=== PATIENT | male | born 1965 | race Two or more races ===

== ENCOUNTER 2016-05-22 16:22 | Emergency (ER) | payer MEDICAID ==
[~2016-05-22 16:22] MED LIST: ALDACTONE100 MG PO; ALDACTONE25 MG PO; AMBIEN10 MG PO; B COMPLEX WITH1 EACH PO; CARAFATE1 GM PO; CONSTULOSE10 GM/15 M PO; DELTASONE10 MG PO; FEOSOL325 MG PO; FERGON325 M1 PO; FLEXERIL10 MG PO; FOLIC ACID1 MG PO; HYDROCODON-ACE1 EAC4 PO; HYDRODIURIL12.5 MG; K-TAB 10MEQ10 MEQ PO; KLOR-CON M2020 MEQ PO; LASIX40 MG PO; LEVAQUIN 750 M750 MG PO; LEVOTHROID (S200 MCG PO; LEVOTHROID (SY25 MCG PO; LEVOTHROID(SYN75 MCG PO; LIDODERM1 EACH TOP; LOPRESSOR50 MG PO; MAG-OX PO; MAG-OX-400(241400 MG PO; MECLIZINE HCL25 MG PO; NITROSTAT0.4 MG SL; NORCO 5-325 MG1 TAB; PRILOSEC20 M1 PO; PROAIR HFA8.5 GM INH; PROTONIX40 MG PO; PROZAC10 MG PO; PROZAC20 MG PO; RISPERDAL0.5 MG PO; SYNTHROID200 MCG PO; THERA-VITE W/ B1 TAB PO; ULTRAM50 MG PO; VITAMIN B-1100 MG PO; WELLBUTRIN SR150 MG PO; XANAX0.5 MG PO; XIFAXAN200 MG PO; XIFAXAN550 MG PO; ZANTAC150 MG PO; ZAROXOLYN2.5 MG PO
[2016-09-21] MEDS ORDERED: CPAP INH (10:24)
[2016-09-21] MEDS ORDERED: DUONEB INH (10:58)
[2016-11-08] MEDS ORDERED: OSCAL500 MG PO (09:23)
[2016-11-08] MEDS ORDERED: MAG-OX-400(241400 MG PO (09:23)
[2016-11-08] MEDS ORDERED: PROZAC10 MG PO (09:24)
[2016-11-08] MEDS ORDERED: RISPERDAL0.5 MG PO (09:39)
[2016-11-11] MEDS ORDERED: CARAFATE1 GM PO (09:04)
== END 2016-05-22 16:58 | disposition left against medical advice (07) ==
LOC: GMED 16:22
DX: Z53.21 Procedure and treatment not carried out due to patient leaving prior to being seen by health care provider (principal)

== ENCOUNTER 2016-06-04 14:24 | Emergency (ER) | payer SELFPAY ==
[2016-09-21] MEDS ORDERED: CPAP INH (10:24)
[2016-09-21] MEDS ORDERED: DUONEB INH (10:58)
[2016-11-08] MEDS ORDERED: OSCAL500 MG PO (09:23)
[2016-11-08] MEDS ORDERED: MAG-OX-400(241400 MG PO (09:23)
[2016-11-08] MEDS ORDERED: PROZAC10 MG PO (09:24)
[2016-11-08] MEDS ORDERED: RISPERDAL0.5 MG PO (09:39)
[2016-11-11] MEDS ORDERED: CARAFATE1 GM PO (09:04)
== END 2016-06-04 15:18 | disposition disaster alternative care site (69) ==
LOC: GMED 14:24
DX: Z53.21 Procedure and treatment not carried out due to patient leaving prior to being seen by health care provider (principal)

== ENCOUNTER 2016-06-05 07:45 | Emergency (ER) | payer MEDICAID ==
--- NOTE | ~2016-06-05 | ER ---
PATIENT'S NAME: JM GAXIOLA [facility] AGE: 50 Y [address] ROOM: [place] [address] LOCATION: [facility] ADMIT DATE: 06/05/2016 ER/Outpatient Report DISCHARGE DATE: 06/05/2016 FAMILY PHYSICIAN: Tessie Ashby MD ATTENDING PHYSICIAN: Merissa Villaseñor CHIEF COMPLAINT: Abdominal discomfort and leg discomfort. HISTORY OF PRESENT ILLNESS: The patient states that for the past 2-3 weeks he has had progressive discomfort in his lower extremities. This has progressed to his abdomen as well. He has a known history of cirrhosis secondary to alcoholism. He has no significant changes, but states he could not sleep last night and that prompted him to come in. He was in the emergency department waiting room yesterday at 2 different hospitals, but felt the wait was too long and did not be seen yesterday. His primary care is Dr. Ashby of [facility]. He denies any confusion and is otherwise able to take care of himself at home per his baseline. He does have pain medication and states that he has been taking everything as normally. His tramadol once a day does not appear to be adequately controlling his symptoms. He does report significant weight gain over the last several weeks. PAST MEDICAL HISTORY: Documented on the record and reviewed by me. SOCIAL HISTORY: Documented on the record and reviewed by me. MEDICATIONS: Documented on the record and reviewed by me. ALLERGIES: DOCUMENTED ON THE RECORD AND REVIEWED BY ME. REVIEW OF SYSTEMS: All systems are reviewed and negative except as noted in the HPI. PHYSICAL EXAMINATION: VITAL SIGNS: Weight is 192.8 kilos, up from 172.2 kilos at the beginning of May. Blood pressure is 172/92, pulse is 61, respiratory rate is 24, temperature 96.6, SpO2 is 96% on room air. Pain is rated at 10/10. GENERAL: Age-appropriate male, in no obvious pain or distress. Resting comfortably on exam table. NEUROLOGIC: Awake and alert. GCS is 15. Moves all extremities PATIENT'S NAME: JM GAXIOLA [facility] AGE: 50 Y [address] ROOM: [place] [address] LOCATION: [facility] ADMIT DATE: 06/05/2016 ER/Outpatient Report DISCHARGE DATE: 06/05/2016 FAMILY PHYSICIAN: Tessie Ashby MD ATTENDING PHYSICIAN: Merissa Villaseñor. Ambulates with some difficulty. No gait abnormality. HEENT: Normocephalic, atraumatic. Eyes are PERRL. Oropharynx is clear. NECK: Supple. Trachea is midline. CHEST/HEART: Regular rate and rhythm with no obvious murmurs. LUNGS: Grossly clear to auscultation bilateral, however, limited by body habitus. BACK: Nontender to palpation throughout. No CVA tenderness. ABDOMEN: Soft, nontender with no masses, rebound, or guarding though limited by body habitus. EXTREMITIES: Notable for woody edema of the bilateral lower extremities to the mid thigh. There is no significant skin breakdown, weeping, or cellulitis appreciated. No deformities appreciated. SKIN: Warm, dry, and intact. There are several focal telangiectasia across the chest, but no other abnormalities appreciated. LABS AND X-RAYS: No imaging was obtained. Labs are notable for the following: WBC is 4.4, hemoglobin 8.8, and platelets of 84. INR is 1.3. Ammonia is 137. Lactate is 1.6. Urinalysis with 10-20 rbc's but no wbc's, leukocytes, nitrites, or bacteria. Procalcitonin is below threshold. Sodium 142, potassium 4.0, chloride 110, CO2 is 25, BUN is 15, and creatinine 0.8. GFR is greater than 60. LFTs are within range, prior total bilirubin of 2.0, alkaline phosphatase 162, AST is 99, ALT is 56. Amylase and lipase of 71 and 391 respectively. CPK is 163, CK-MB is 3.0, and troponin I is below threshold. Free T4 0.7. TSH 37.5. ProBNP is 285. CRP is 0.58. IMPRESSION: 1. Marked weight gain with volume retention, approximately 26 kilos in 1 month. 2. Abdominal pain and leg pain related to fluid retention and edema. 3. Hypothyroidism with normal TSH. EMERGENCY DEPARTMENT COURSE: The patient was evaluated as above. There are no significant new abnormalities on his laboratory studies today. He does appear to be markedly elevated in his weight. There is no evidence of heart failure at this time. No significant metabolic derangement. We will have him follow up with Dr. Ashby tomorrow. I spoke with Dr. Day to ensure that. I have recommended he double his diuretic dose today and take his tramadol more frequently to help control his symptoms. I encouraged him to continue using a low-salt diet and to watch his fluid intake. He expresses understanding. He stated he would be more comfortable with that at home than in the hospital. All questions were answered, and the patient was discharged in stable condition. PATIENT'S NAME: JM GAXIOLA [facility] AGE: 50 Y [address] ROOM: [place] [address] LOCATION: [facility] ADMIT DATE: 06/05/2016 ER/Outpatient Report DISCHARGE DATE: 06/05/2016 FAMILY PHYSICIAN: Tessie Ashby MD ATTENDING PHYSICIAN: Merissa Villaseñor MERISSA VILLASEÑOR MD JH/modl /[id number] d: 06/05/16 1835 t: 06/06/16 1054, OUTPATIENT REPORT
[2016-06-05 08:25] LABS: BASOPHIL % 0.7 %; EOSINOPHIL # 0.3 K/uL (0.0-0.5); EOSINOPHIL % 7.7 %; HEMATOCRIT 27.4 % (37.0-53.0); HEMOGLOBIN 8.8 g/dL (12.0-17.0); IMMATURE GRANULOCYTE % 0.2 %; LYMPHOCYTE % 22.6 %; MCH 32.1 pg (27.0-34.0); MCHC 32.1 gm/dL (32.0-36.5); MONOCYTE # 0.4 K/uL (0.0-1.0); MONOCYTE % 9.3 %; MPV 9.8 fl (9.4-12.4); NEUTROPHIL # (ANC) 2.6 K/uL (1.4-9.0); NEUTROPHIL % 59.5 %; NRBC % 0 /100WBC (0-0.00); PLATELET COUNT 84 K/uL (150-450); RBC 2.74 M/uL (4.00-6.00); RDW-CV 16.5 % (11.9-14.6); WBC 4.4 K/uL (4.0-11.0)
[2016-06-05 08:33] LABS: INR - (THERAPEUTIC) 1.3 (0.9-1.1); PROTIME 13.7 SECONDS (9.6-11.1); PTT 37 SECONDS (25-32)
[2016-06-05 08:49] LABS: ALBUMIN 2.4 gm/dL (3.5-5.0); ALK PHOS 162 IU/L (33-138); ALT 56 IU/L (12-78); AST 99 IU/L (10-40); BLOOD UREA NITROGEN 15 mg/dL (6-24); CALCIUM 7.6 mg/dL (8.5-10.5); CHLORIDE 110 mMol/L (96-110); CO2 25 mMol/L (22-32); CPK 163 IU/L (35-332); CREATININE 0.8 mg/dL (0.6-1.3); ESTIMATED GFR (MDRD EQUATION) > 60; SODIUM 142 mMol/L (135-145)
[2016-06-05 08:54] LABS: BILIRUBIN URINE NEGATIVE (NEGATIVE); BLOOD URINE 25 /UL (NEGATIVE); COLOR URINE YELLOW (YELLOW); GLUCOSE URINE NEGATIVE (NEGATIVE); KETONE URINE NEGATIVE (NEGATIVE); LEUKOCYTES URINE NEGATIVE /UL (NEGATIVE); NITRITE URINE NEGATIVE (NEGATIVE); PROTEIN URINE NEGATIVE (NEGATIVE); TURBIDITY URINE CLEAR (CLEAR); UROBILINOGEN URINE 4 mg/dL (NORMAL)
[2016-06-05 09:02] LABS: BACTERIA URINE NEGATIVE (NEGATIVE); EPITHELIAL URINE NEGATIVE #/HPF (NEGATIVE); WBC URINE NEGATIVE #/HPF (NEGATIVE)
[2016-06-06] MEDS ORDERED: ULTRAM50 MG PO (11:03)
[2016-06-06] MEDS ORDERED: LIDOCAINE1 EACH TRANS (11:04)
[2016-06-06] MEDS ORDERED: NITROSTAT0.4 MG SL (11:04)
[2016-06-06] MEDS ORDERED: PROAIR HFA8.5 GM INH (11:05)
[2016-06-06] MEDS ORDERED: MECLIZINE HCL25 MG PO (11:05)
[2016-06-06] MEDS ORDERED: K-TAB 10MEQ10 MEQ PO (11:07)
[2016-06-06] MEDS ORDERED: THIAMINE HCL100 MG PO (11:09)
[2016-09-21] MEDS ORDERED: CPAP INH (10:24)
[2016-09-21] MEDS ORDERED: DUONEB INH (10:58)
[2016-11-08] MEDS ORDERED: MAG-OX-400(241400 MG PO (09:23)
[2016-11-08] MEDS ORDERED: OSCAL500 MG PO (09:23)
[2016-11-08] MEDS ORDERED: PROZAC10 MG PO (09:24)
[2016-11-08] MEDS ORDERED: RISPERDAL0.5 MG PO (09:39)
[2016-11-11] MEDS ORDERED: CARAFATE1 GM PO (09:04)
== END 2016-06-05 10:25 | disposition disaster alternative care site (69) ==
LOC: GMED 07:45
PROVIDERS: Emergency Medicine
DX: R10.9 Unspecified abdominal pain (principal); E03.9 Hypothyroidism, unspecified

== ENCOUNTER 2016-06-06 09:30 | Observation (INO) | payer MEDICAID ==
[~2016-06-06] VITALS: Ht 172.7 cm; Wt 196.4 kg
--- NOTE | ~2016-06-06 | HP ---
PATIENT'S NAME: JM GAXIOLA [facility] AGE: 50 Y [address] ROOM: [place] [address] [place] [facility] ADMIT DATE: 06/06/2016 History & Physical DISCHARGE DATE: FAMILY PHYSICIAN: Tessie Ashby MD ATTENDING PHYSICIAN: TATIANA RODRIGUEZ DATE OF SERVICE: CHIEF COMPLAINT: Bilateral lower extremity swelling and shortness of breath. HISTORY OF PRESENT ILLNESS: This is a 50-year-old male with repeated admissions to [facility] in the past few months. The patient has a history of hepatitis C and alcoholic liver cirrhosis. He also has extensive gastric polyposis. The patient states that he started having increasing bilateral lower extremity swelling for the past few days. He also started experiencing increasing shortness of breath. Currently, he is on room air, but complains of subjective shortness of breath with exertion. He is not short of breath at rest. He also complains of epigastric pain. The pain is not too much. Denies any chest pain. Denies any lightheadedness. Denies any head trauma or loss of consciousness. Denies any abdominal pain, diarrhea, or constipation. Denies any other complaints at this point in time. The patient presented to the ER yesterday and was given some Lasix. He is noncompliant with his medications and has not filled his medications since March. He was asked to follow up with his primary care physician, Dr. Ashby, and the patient presented to Dr. Ashby's clinic today. He states that he was in the clinic for about 2 hours, and there were patients that were seen before him, but he was not seen. Dr. Ashby called for transfer to [facility]. It was stated to the patient that [facility] did not have the capacity to deal with the patient at that point of time. REVIEW OF SYSTEMS: A 10-point review of systems done and was otherwise negative except as mentioned above. HOME MEDICATIONS: Per JUN. FAMILY HISTORY: Reviewed. Positive for leukemia in mother and CVA in father. Brother with oropharyngeal carcinoma. PAST SURGICAL HISTORY: Reviewed. PATIENT'S NAME: JM GAXIOLA [facility] AGE: 50 Y [address] ROOM: [place] [address] [place]: [facility] [place] ADMIT DATE: 06/06/2016 History & Physical DISCHARGE DATE: FAMILY PHYSICIAN: Tessie Ashby MD ATTENDING PHYSICIAN: TATIANA RODRIGUEZ 1. Right shoulder surgery. 2. Back surgery. 3. Rotator cuff surgery. PAST MEDICAL HISTORY: 1. Coronary artery disease. 2. History of hepatitis C. 3. Liver cirrhosis. 4. Alcoholic liver disease. 5. Obstructive sleep apnea, on CPAP. 6. Depression. 7. Anxiety. 8. Hypertension. 9. History of alcohol and drug abuse in the past. 10. Thyroid disease. SOCIAL HISTORY: The patient denies any smoking or alcohol on recent history. ALLERGIES: NONE REPORTED. PHYSICAL EXAMINATION: VITAL SIGNS: Temperature 98.4, pulse 63 and regular, respirations 25, blood pressure 137/77, saturation 100% on room air. GENERAL: The patient is alert and oriented x3. Answers all questions appropriately, in no acute distress. HEENT: Head: Normocephalic and atraumatic. Pupils are equal, round, reactive to light. Extraocular muscles are intact. No scleral icterus noted. No conjunctival injection noted. Mucous membranes are moist. NECK: Supple. No nuchal rigidity. HEART: Regular rate and rhythm. LUNGS: Clear to auscultation bilaterally. ABDOMEN: Soft, nontender, nondistended. Bowel sounds are present. EXTREMITIES: Bilateral lower extremity 2+ to 3+ pitting pedal edema noted. NEUROLOGIC: The patient is alert and oriented x3. Follows all commands. Moves all extremities. Cranial nerves 2 through 12 are grossly intact. DIAGNOSTIC STUDIES: Ammonia 44. ProBNP 202. CBC showed a white count of 5.3, hemoglobin 9.6, hematocrit 30.4, platelets are 94. CMP showed sodium 142, potassium 3.8, chloride 108, bicarb 25, BUN 11, creatinine 0.8, glucose 108, calcium 8.0, total protein 6.7, albumin 2.7. AST 110, ALT 63, alkaline phosphatase 166. Total bilirubin 2.4, anion gap 12.8, globulin 4.0. GFR more than 60. PT 13.4, INR 1.3, PTT 36. Blood alcohol level was less than 0.01 and normal. PATIENT'S NAME: DEON GAXIOLAEL Danii [facility] AGE: 50 Y [address] ROOM: [id number] [place], [place] [address] LOCATION: [facility] [place] ADMIT DATE: 06/06/2016 History & Physical DISCHARGE DATE: FAMILY PHYSICIAN: Tessie Ashby MD ATTENDING PHYSICIAN: TATIANA RODRIGUEZ Chest x-ray was done for shortness of breath and showed no vascular congestion or acute parenchymal infiltrate. The EKG showed sinus rhythm and no acute ST changes. Prolonged QT interval noted with QTc of 518 msec. ASSESSMENT AND PLAN: A 50-year-old male presenting with bilateral lower extremity edema and shortness of breath. 1. History of hepatitis C. 2. Liver cirrhosis. The patient's symptoms might be likely secondary to liver cirrhosis. He is noncompliant with his medications. He has not taken or refilled his diuretics. I will place him on Lasix for now. We will monitor his fluid volume status very closely. Start the patient on Aldactone. 3. Dyspnea. This is likely secondary to fluid overload, diuresed with Lasix and Aldactone. 4. Obstructive sleep apnea. On CPAP at h.s. 5. Thrombocytopenia. Chronic and stable, likely secondary to liver disease. 6. History of alcohol abuse in the past. 7. History of hepatic encephalopathy. Ammonia level is normal. 8. History of gastric polyposis. I will obtain Hematest of his stools. Monitor hemoglobin closely. 9. Hypothyroidism. Continue levothyroxine per home regimen. 10. History of coronary artery disease. 11. Code status. Full code. Discussed with the patient at the time of admission. 12. Deep vein thrombosis prophylaxis. SCDs to legs. TATIANA RODRIGUEZ MD MT/kaila /[id number] D: T: HISTORY & PHYSICAL
--- NOTE | ~2016-06-06 | DS ---
PATIENT'S NAME: JM GAXIOLA [facility] AGE: 50 Y [address] ROOM: [id number] [place], [place] [address] LOCATION: [facility] [place] ADMIT DATE: 06/06/2016 Discharge Summary DISCHARGE DATE: 06/07/2016 FAMILY PHYSICIAN: Tessie Ashby MD ATTENDING PHYSICIAN: Yoel Ferrera ATTENDING PHYSICIAN ON THE DAY OF DISCHARGE: Dr. Dora Barraza. DISCHARGE DIAGNOSES: 1. Bilateral lower extremity edema. 2. Dyspnea. 3. Cirrhosis of the liver. 4. History of gastric polyposis. 5. Obstructive sleep apnea. 6. Depression. 7. Anxiety. 8. Hypothyroidism. 9. History of hepatitis C. 10. Coronary artery disease. DISCHARGE MEDICATIONS: We are sending the patient out on minimal medications at this time: 1. Lasix 20 mg p.o. daily. 2. Lactulose 45 mL p.o. t.i.d. 3. Levothyroxine 200 mcg p.o. daily. 4. Metolazone 2.5 mg p.o. daily. 5. Protonix 40 mg p.o. daily. 6. Rifaximin 550 mg p.o. twice daily. 7. Spironolactone 25 mg p.o. daily. HOSPITAL COURSE: The patient was admitted on 06/06/2016. He was placed on IV Lasix 40 mg twice daily. A BNP was obtained and was found to be 202. The patient responded well to the Lasix. He Is feeling much improved in the afternoon of 06/07/2016. The patient was requesting to discharge home. Family was at the bedside and agreed with this plan. The patient did have an ammonia level also drawn on 06/06/2016, which was 44. The patient is in the midst of meeting with employment case manager to reinstate his Medicaid and also needs to have a PCP in place to help manage his chronic conditions and to [facility] for his medications. Dr. Cai has graciously agreed to see this patient for continuing management. The patient voiced understanding of this. We will work with our pharmacy to get the patient supplies of the minimal amount of medications necessary. Please see list as stated above. The patient will discharge to his home on 06/07/2016. He is to follow up with PATIENT'S NAME: JM GAXIOLA [facility] AGE: 50 Y [address] [place] [facility] [place] [address] LOCATION: [facility] [place] ADMIT DATE: 06/06/2016 Discharge Summary DISCHARGE DATE: 06/07/2016 FAMILY PHYSICIAN: Tessie Ashby MD ATTENDING PHYSICIAN: Yoel Ferrera showcase maker on 06/08/2016. The purpose of this is to reinstate Medicaid. The patient understands need to work with [employer]. Dr. Cai has agreed to see this patient in followup in 3-5 days for continuing management of his chronic conditions. The patient voiced understanding. Discharge of this patient took less than 35 minutes. MARIELA BARNETT PA-C FOR MD SANJEEV BRYANT/kaila /[id number] CC: Lauri Cai MD d: 06/08/16 0321 t: 06/22/16 1642, DISCHARGE SUMMARY
[2016-06-06] MEDS ORDERED: ULTRAM50 MG PO (11:03)
[2016-06-06] MEDS ORDERED: NITROSTAT0.4 MG SL (11:04)
[2016-06-06] MEDS ORDERED: LIDOCAINE1 EACH TRANS (11:04)
[2016-06-06] MEDS ORDERED: PROAIR HFA8.5 GM INH (11:05)
[2016-06-06] MEDS ORDERED: MECLIZINE HCL25 MG PO (11:05)
[2016-06-06] MEDS ORDERED: K-TAB 10MEQ10 MEQ PO (11:07)
[2016-06-06] MEDS ORDERED: THIAMINE HCL100 MG PO (11:09)
--- NOTE | 2016-06-06 11:11 | NUR ---
Pt is 50 y/o male admit for shortness breath for hospitalist. Pt alert and oriented x3. Hx non-compliance with taking meds,following medical advice. Pt lower legs and feet are edematous. Hx ETOH abuse,acute hepatic encephalop, end stage liver disease,htn,NH,asthma,pneumonia,SOB,ulcers,bloody stools,Hep C-not tx'd,chronic back problems,neb tx,COPD,anemia,incontinent. No allergies. PT states he resides at home with his daughter and her boyfriend-who is also disabled from an MVA. He states they help take care of her. Came from [facility] to our ED for evaluation.
[2016-06-06 14:11] LABS: INR - (THERAPEUTIC) 1.3 (0.9-1.1); PROTIME 13.4 SECONDS (9.6-11.1); PTT 36 SECONDS (25-32)
[2016-06-06 14:18] LABS: ALBUMIN 2.7 gm/dL (3.5-5.0); ALK PHOS 166 IU/L (33-138); ALT 63 IU/L (12-78); ANION GAP 12.8 (10.0-19.0); AST 110 IU/L (10-40); BLOOD UREA NITROGEN 11 mg/dL (6-24); CHLORIDE 108 mMol/L (96-110); CO2 25 mMol/L (22-32); CREATININE 0.8 mg/dL (0.6-1.3); ESTIMATED GFR (MDRD EQUATION) > 60; POTASSIUM 3.8 mMol/L (3.7-5.1); SODIUM 142 mMol/L (135-145); TOTAL BILIRUBIN 2.4 mg/dL (0.0-1.5); TOTAL PROTEIN 6.7 g/dL (6.0-8.4)
[2016-06-06 14:53] LABS: BASOPHIL # 0.1 K/uL (0.0-0.2); BASOPHIL % 0.9 %; EOSINOPHIL # 0.4 K/uL (0.0-0.5); EOSINOPHIL % 6.7 %; HEMATOCRIT 30.4 % (37.0-53.0); HEMOGLOBIN 9.6 g/dL (12.0-17.0); IMMATURE GRANULOCYTE % 0.4 %; LYMPHOCYTE # 1.3 K/uL (0.8-4.0); LYMPHOCYTE % 24.2 %; MCH 31.6 pg (27.0-34.0); MCHC 31.6 gm/dL (32.0-36.5); MONOCYTE # 0.4 K/uL (0.0-1.0); MONOCYTE % 6.9 %; NEUTROPHIL # (ANC) 3.3 K/uL (1.4-9.0); NEUTROPHIL % 60.9 %; NRBC % 0 /100WBC (0-0.00); PLATELET COUNT 94 K/uL (150-450); RBC 3.04 M/uL (4.00-6.00); RDW-CV 16.4 % (11.9-14.6); WBC 5.3 K/uL (4.0-11.0)
--- NOTE | 2016-06-06 15:22 | NUR ---
Significant Event: Pt admitted from clinic at 1130. Pt states he stopped taking his meds since march because he can't afford them and now has gained alot of water weight since. Hx of Hep C and cirroisis of the liver. Up with 1 assist. Cardiac diet. IV lasix BID. EKG, chest xray, blood ETOH level but other labs to be drawn. CPAP at night. Q4hr VS. Hematest stool. a/o x3. Follow up:
--- NOTE | 2016-06-07 04:02 | NUR ---
SIGNIFICANT EVENT: Patient alert & oriented. Slight hypotensive on 0300 assessment (97/52), other VSS on RA. Q4 vital signs - last taken at 0300. CPAP at HS. Hx Hep C - standard precautions with cares. PIV to L) Anterior FA is SL - flushes well, good blood return. 1 PA to BR. Pleasant and cooperative with cares.
[2016-06-07 08:59] LABS: ANION GAP 9.4 (10.0-19.0); BLOOD UREA NITROGEN 16 mg/dL (6-24); CALCIUM 8.2 mg/dL (8.5-10.5); CHLORIDE 106 mMol/L (96-110); CO2 28 mMol/L (22-32); CREATININE 0.9 mg/dL (0.6-1.3); ESTIMATED GFR (MDRD EQUATION) > 60; POTASSIUM 3.4 mMol/L (3.7-5.1)
[2016-06-07 09:01] LABS: SODIUM 140 mMol/L (135-145)
--- NOTE | 2016-06-07 12:33 | NUR ---
Reviewed patient's chart and past notes from when he was here last. At his last visit I made a referral to [facility] Medication Assistance Program. I contacted Soha at [facility] today [phone] and asked her if patient followed through with the referral that I made in May. Per Soha, Kehinde did go in to [facility] and meet with her, but in order for [facility] to be able to get him signed up on a medication assistance program patient needed to be seen by Dr. Ashby for a follow up appointment. Patient stated he was not going to go in to see Dr. Ashby because he did not have the money for the appointment. Dr. Ashby refused to sign the Medication Assistance Application since patient would not come in for appointment. [facility] is only able to help with two of his meds. Soha with [facility] said that she is happy to help patient but he has to follow through with the recommendations and necessary steps to get enrolled on a plan. Will discuss with patient.
--- NOTE | 2016-06-07 16:40 | NUR ---
D: Orders received for the patient to be discharged to home. I: Dismissal instructions were prepared by the virtual nurse but reviewed in the room by the primary nurse Lizzy AVINA. The following information was prepared including [facility] teaching sheets: Tips for Taking Medications, Taking your medications, and preventing DVT. R: When asked the patient verbalized understanding of the discharge instructions as to what Lizzy AVINA reviewed with him at the bedside. P: The above information was provided by the virtual nurse for discharge. The primary nurse will review any further education and discharge the patient.
--- NOTE | 2016-06-07 17:45 | NUR ---
Discharge Summary: Patient IV dc'd without complications. Hospital dismissal instructions given to patient. Went over the appt with Dr Cai and stressed the importance of making it to this appointment. Also went over the medications that were stopped and the ones the he will definitely need to take. Pt voiced understanding of all this. Pt was in a hurry to leave to go pay a bill by 5 pm with daughter. Instructed pt to come back to floor LATHA to get medications from pharmacy and finish going over the education needed. Pt will return to floor. Pharmacy to be called and bring up medications for pt to take home.
[2016-09-21] MEDS ORDERED: CPAP INH (10:24)
[2016-09-21] MEDS ORDERED: DUONEB INH (10:58)
[2016-11-08] MEDS ORDERED: MAG-OX-400(241400 MG PO (09:23)
[2016-11-08] MEDS ORDERED: OSCAL500 MG PO (09:23)
[2016-11-08] MEDS ORDERED: PROZAC10 MG PO (09:24)
[2016-11-08] MEDS ORDERED: RISPERDAL0.5 MG PO (09:39)
[2016-11-11] MEDS ORDERED: CARAFATE1 GM PO (09:04)
== END 2016-06-07 18:30 | disposition disaster alternative care site (69) ==
LOC: GMSU 10:04
PROVIDERS: ADMIT Family Medicine
DX: R60.0 Localized edema (principal); I25.10 Atherosclerotic heart disease of native coronary artery without angina pectoris; F41.9 Anxiety disorder, unspecified; F32.9 Major depressive disorder, single episode, unspecified; I10 Essential (primary) hypertension; E03.9 Hypothyroidism, unspecified; K70.30 Alcoholic cirrhosis of liver without ascites; G47.33 Obstructive sleep apnea (adult) (pediatric); E87.6 Hypokalemia; D69.6 Thrombocytopenia, unspecified; Z86.19 Personal history of other infectious and parasitic diseases; Z98.890 Other specified postprocedural states
CPT/HCPCS: A9270; G0480; J1650; J1940

== ENCOUNTER 2016-06-17 11:02 | Emergency (ER) | payer MEDICAID ==
--- NOTE | ~2016-06-17 | ER ---
PATIENT'S NAME: DEON GAXIOLAEL Danii [facility] AGE: 50 Y [address] ROOM: [place] [address] LOCATION: ED ADMIT DATE: 06/17/2016 ER/Outpatient Report DISCHARGE DATE: 06/17/2016 FAMILY PHYSICIAN: , Unknown ATTENDING PHYSICIAN: Priscilla Pruitt Time of Arrival: 1102 hours. Time Seen: 1110 hours. IDENTIFICATION: 50-year-old male. CHIEF COMPLAINT: Right shoulder pain, abdominal pain, nausea, vomiting, and headache. HISTORY OF PRESENT ILLNESS: The patient states he fell 3 days ago. He has had headache, nausea, vomiting, and right shoulder pain since that time. He has pain that radiates into his right anterior chest. No other problems or concerns. PAST MEDICAL HISTORY: ALLERGIES: THE PATIENT DENIES ANY ALLERGIES. CURRENT MEDICATIONS: He states Dr. Cai just trimmed his medication. He takes, 1. Lactulose 45 mL 3 times a day. 2. Lasix 20 mg daily. 3. Albuterol p.r.n. 4. Tramadol 50 mg q.8 hours. MEDICAL PROBLEMS: Bilateral lower extremity edema, dyspnea, cirrhosis of the liver, gastric polyposis, obstructive sleep apnea, history of hepatitis C, history of coronary artery disease, depression, anxiety, history of alcohol and drug abuse in the past, and hypothyroidism. PRIOR SURGERIES: Right shoulder surgery, back surgery, and right rotator cuff surgery. SOCIAL HISTORY: The patient is currently getting , but he is still . Lives here in [place]. He is disabled. Does not work outside the home. Tobacco use, denies. Alcohol use, denies. Drug use, denies. PATIENT'S NAME: KEHINDE GAXIOLA [facility] AGE: 50 Y [address] ROOM: [place] [address] LOCATION: ED ADMIT DATE: 06/17/2016 ER/Outpatient Report DISCHARGE DATE: 06/17/2016 FAMILY PHYSICIAN: , Fatou ATTENDING PHYSICIAN: Priscilla Pruitt REVIEW OF SYSTEMS: All systems reviewed and negative other than what is noted in the HPI. FAMILY HISTORY: Positive for leukemia in mother, father with CVA, brother with oropharyngeal carcinoma. PHYSICAL EXAMINATION: VITAL SIGNS: Weight 185 kg, blood pressure 142/102, pulse 69, respirations 20, temperature 97, and saturations 97%. GENERAL: A 50-year-old male in no acute distress. HEENT: Normocephalic, atraumatic. Ears: TMs translucent to both ears. Eyes: Pupils equal and reactive to light and accommodation. Extraocular movements intact. Nose: Mucosa pink. No lesions or drainage. Mouth: No lesions. Pharynx benign. NECK: Supple. No lymphadenopathy. LUNGS: Clear to auscultation. HEART: Regular rate and rhythm. ABDOMEN: Soft, protuberant, tender epigastric region. No rebound or guarding. SKIN: [place], warm, and dry. No lesions or rashes noted. NEURO: No focal deficit. The patient has tenderness in his right anterior shoulder, no bruising or ecchymosis. X-ray shows chronic degenerative changes of his right shoulder, no acute findings, pending Radiology over-read. Head CT without contrast, negative per Radiology for any acute findings. He has had a prior right shoulder arthroplasty. EKG: Sinus rhythm with first-degree AV block, no acute ST elevation or depression. Nonspecific ST-T wave changes. Hemoglobin is 8.5, which is down from what it has been, it has been running in more than 9-10 range, most recently was 9.6 on June 06; hematocrit 26; platelets 106, which were stable; and white count 4.3 with a normal differential. INR 1.3. Ammonia level is 175, which is elevated compared to previous ammonia levels, ammonia level was 44 on June 06. Amylase 54 and lipase 475, also higher than it has been, lipase on June 05 with 391; December 01. Amylase is normal at 54. Troponin I less than 0.040. ProBNP elevated at 455, proBNP was 202 on June 06. The patient's lower extremity edema, he does have significant lower extremity edema and no calf tenderness. Sodium 144; potassium 3.0, which is lower than it has been; chloride 110; CO2 23; BUN 14; creatinine 0.7; and blood sugar 122. Albumin 2.5. Liver enzymes are improved. Total bilirubin 1.8, which is down. CPK 611, CK-MB 3.9, both of which are elevated when compared to prior enzymes. The patient was given Zofran 4 mg ODT for dry heaving. An IV was initiated, he was given 4 mg of Zofran IV. PATIENT'S NAME: KEHINDE GAXIOLA [facility] AGE: 50 Y [address] ROOM: [place], [place] [address] LOCATION: [facility] ADMIT DATE: 06/17/2016 ER/Outpatient Report DISCHARGE DATE: 06/17/2016 FAMILY PHYSICIAN: Physician, Unknown ATTENDING PHYSICIAN: Priscilla Pruitt IMPRESSION: 1. Pancreatitis. 2. Hepatic encephalopathy. 3. Right shoulder pain secondary to fall. 4. Hypokalemia. 5. Liver cirrhosis secondary to hepatitis C and substance abuse. 6. Anemia, which seems to be worse than baseline, but he does have a history of chronic anemia. 7. Congestive heart failure with elevated proBNP and increasing lower extremity edema. 8. Elevated CPK and CK-MB. PLAN: For admission, but we do not have any beds available. He will be transferred [facility] for the services of Dr. Frannie Quinn, she is the accepting physician, and Kehinde agrees with this transfer of care. He was transferred by ambulance with normal saline at 75 mL/hour. PRISCILLA PRUITT MD CAR/modl /[id number] d: 06/17/162128 t: 06/19/16 0721, OUTPATIENT REPORT
[~2016-06-17 11:02] MED LIST changes: +LIDOCAINE1 EACH TRANS; +THIAMINE HCL100 MG PO
[2016-06-17 11:37] LABS: BASOPHIL % 0.7 %; EOSINOPHIL # 0.3 K/uL (0.0-0.5); EOSINOPHIL % 6.1 %; HEMOGLOBIN 8.5 g/dL (12.0-17.0); IMMATURE GRANULOCYTE % 0.2 %; LYMPHOCYTE # 0.8 K/uL (0.8-4.0); LYMPHOCYTE % 18.5 %; MCH 31.5 pg (27.0-34.0); MCHC 32.7 gm/dL (32.0-36.5); MCV 96.3 fl (83.0-98.0); MONOCYTE # 0.5 K/uL (0.0-1.0); MONOCYTE % 10.8 %; MPV 9.3 fl (9.4-12.4); NEUTROPHIL # (ANC) 2.7 K/uL (1.4-9.0); NEUTROPHIL % 63.7 %; NRBC % 0 /100WBC (0-0.00); PLATELET COUNT 106 K/uL (150-450); RDW-CV 16.2 % (11.9-14.6); WBC 4.3 K/uL (4.0-11.0)
[2016-06-17 11:48] LABS: INR - (THERAPEUTIC) 1.3 (0.9-1.1); PROTIME 13.4 SECONDS (9.6-11.1); PTT 36 SECONDS (25-32)
[2016-06-17 11:59] LABS: ALBUMIN 2.5 gm/dL (3.5-5.0); ALK PHOS 159 IU/L (33-138); ALT 70 IU/L (12-78); AST 147 IU/L (10-40); BLOOD UREA NITROGEN 14 mg/dL (6-24); CALCIUM 7.7 mg/dL (8.5-10.5); CHLORIDE 110 mMol/L (96-110); CO2 23 mMol/L (22-32); CPK 611 IU/L (35-332); CREATININE 0.7 mg/dL (0.6-1.3); ESTIMATED GFR (MDRD EQUATION) > 60; MAGNESIUM 2.4 mg/dL (1.3-2.6); SODIUM 144 mMol/L (135-145); TOTAL PROTEIN 6.2 g/dL (6.0-8.4)
[2016-06-17 12:03] LABS: TOTAL BILIRUBIN 1.8 mg/dL (0.0-1.5)
[2016-09-21] MEDS ORDERED: CPAP INH (10:24)
[2016-09-21] MEDS ORDERED: DUONEB INH (10:58)
[2016-11-08] MEDS ORDERED: OSCAL500 MG PO (09:23)
[2016-11-08] MEDS ORDERED: MAG-OX-400(241400 MG PO (09:23)
[2016-11-08] MEDS ORDERED: PROZAC10 MG PO (09:24)
[2016-11-08] MEDS ORDERED: RISPERDAL0.5 MG PO (09:39)
[2016-11-11] MEDS ORDERED: CARAFATE1 GM PO (09:04)
== END 2016-06-17 13:24 | disposition disaster alternative care site (69) ==
LOC: GMED 11:02
PROVIDERS: Family Medicine
DX: M25.511 Pain in right shoulder (principal); K85.90 Acute pancreatitis without necrosis or infection, unspecified; K72.90 Hepatic failure, unspecified without coma; E87.6 Hypokalemia; K74.69 Other cirrhosis of liver; B19.20 Unspecified viral hepatitis C without hepatic coma; D64.9 Anemia, unspecified; I50.9 Heart failure, unspecified; R74.8 Abnormal levels of other serum enzymes; F32.9 Major depressive disorder, single episode, unspecified; E03.9 Hypothyroidism, unspecified; I25.10 Atherosclerotic heart disease of native coronary artery without angina pectoris

== ENCOUNTER → 2016-07-11 | Outpatient (CLI) | payer MEDICAID ==
[~2016-07-11] MED LIST changes: +CALCIUM 600 +1 EAC3 PO; +CLEOCIN150 MG PO; +CPAP INH; +DUONEB INH; +FLORASTOR250 MG PO; +HUMIBID LA (MU600 MG PO; +LIDOCAINE1 EACH TOP; +MYCOSTATIN CR15 GM TOP; +OSCAL500 MG PO; +POTASSIUM CHLO20 ME2 PO; +SALINE NASAL SP88 ML NOSE; +TYLENOL325 MG PO; +VITAMIN D250000 UNIT PO; +[UNRECOGNIZED DRUG - OTHER] PO
--- NOTE | ~2016-07-11 | ECHO ---
Transthoracic Echocardiography Report (TTE) Demographics Patient Name JM GAXIOLA Date of Study 07/11/2016 R Patient Number [id number] Visit Number [id number] Date of 1965 Room Number Gender Male Number Age 50 year(s) Referring Symone Martinez MD Outside Salesman Erik Pisano Physician Trell Carreon MD Physician Interpreting Kate Ramirez Grinder Machine Knife Setter Physician Supervising Ordering Trell Carreon MD, MD/MLP Physician Nurse Stress Urology Nurse Conclusions Contractility Score Summary Normal Left Ventricular contractility was noted. Summary The estimated left ventricular ejection fraction is 65% with normal WM.The left ventricle is mildly dilated . Mild concentric left ventricular hypertrophy. Mildly dilated right ventricle with normal function. The left atrium is moderately dilated by LA volume index measurement. Mild tricuspid regurgitation by color Doppler. Mild valvular . Mild MAC. Trivial MR. There is severe pulmonary hypertension. The pulmonary pressure (RVSP) is 57 mmHg. The ascending aorta appears mildly dilated or upper normal. The maximum diameter measures 3.7 cm. Mild PS. Procedure Type of Study TTE procedure:2D Echocardiogram, M-Mode, Doppler , Color Doppler. Procedure Date Date: 07/11/2016 Start: 02:49 PM Study Location: Echo Lab Technical Quality: Excellent Indications:Dyspnea/SOB and edema. Appropriate Use Criteria: 9 Patient Status: Routine HR: 74 bpm BP: 136/65 mmHg M-Mode/2D Measurements LV Diastolic Dimension: 6.33 cm LV Systolic Dimension: 3.22 cm LV Septum Diastolic: 1.2 cm LV PW Diastolic: 1.19 cm AO Root Dimension: 2.7 cm Cardiac Output: 15.24 l/min LA Dimension: 4.5 cm EF Estimated: 65 % LVOT: 2.3 cm LVOT VTI: 49.6 cm RV Base: 3.67 cm LV Stroke volume: 205.97 ml RV Length: 7.93 cm TAPSE: 3.83 cm TDI-S': 26.3 cm/s Doppler Measurements AV Peak Velocity: 2.81 m/s MV Peak E-Wave: 1.33 m/s AV Peak Gradient: 31.58 mmHg MV Peak A-Wave: 0.98 m/s AV Mean Gradient: 19 mmHg MV E/A Ratio: 1.36 LVOT Peak Velocity: 2.36 m/s MV P1/2t: 85 msec TR Gradient:49 mmHg PV Peak Velocity: 2.3 m/s Estimated RAP:8 mmHg PV Peak Gradient: 21.16 mmHg Estimated RVSP: 57 mmHg Estimated PASP: 57 mmHg E' Septal Velocity: 8.55 m/s A' Septal Velocity: 12.4 m/s E' Lateral Velocity: 9.21 m/s A' Lateral Velocity: 17.2 m/s Findings Left Ventricle The left ventricle is mildly dilated . Mild concentric left ventricular hypertrophy.Normal EF and WM. Right Ventricle Mildly dilated right ventricle with normal function. Left Atrium The left atrium is moderately dilated by LA volume index measurement. Right Atrium Normal right atrial size. IVC measures 1.51 cm with partial inspiratory collapse. Mitral Valve Trivial mitral regurgitation by color Doppler. Mild mitral annular calcification. Aortic Valve The aortic valve is mildly sclerotic with mild valvular . Tricuspid Valve Mild tricuspid regurgitation by color Doppler. There is severe pulmonary hypertension. The pulmonary pressure (RVSP) is 57 mmHg. Pulmonic Valve Possible mild to moderate PS. Pericardial Effusion No evidence of pericardial effusion. Miscellaneous The ascending aorta is in the upper normal limit. Pleural Effusion No evidence of pleural effusion. Contractility Score LV regional wall motion:(0-Non visualized 1-Normal 2-Hypokinesis 3-Akinesis 4-Dyskinesis 5-Aneurysm) Signature dtt: Ashley Love dtd: 07/11/16 1449 Physician Self Edit
== END | disposition disaster alternative care site (69) ==
LOC: GCAR 07-08 14:00
DX: R60.0 Localized edema (principal); R06.02 Shortness of breath; I51.7 Cardiomegaly

== ENCOUNTER 2016-07-12 15:38 | Emergency (ER) | payer MEDICAID ==
--- NOTE | ~2016-07-12 | ER ---
PATIENT'S NAME: JM GAXIOLA [facility] AGE: 50 Y [address] ROOM: [place] [address] LOCATION: ED ADMIT DATE: 07/12/2016 ER/Outpatient Report DISCHARGE DATE: 07/12/2016 FAMILY PHYSICIAN: Lauri Cai MD ATTENDING PHYSICIAN: Dov Serrato TIME SEEN: 1545 hours. CHIEF COMPLAINT: Upper abdominal pain. HISTORY OF PRESENT ILLNESS: The patient is a 50-year-old male, well known to the emergency room, patient of Dr. Cai. The patient presents complaining of upper abdominal pain for the last several days. The patient said he saw Dr. Cai a week ago and then earlier today. The pain has been associated with vomiting, which occurred last night and some chills. Otherwise, bowel movements have been normal. He has had no black tarry stools. ALLERGIES: NONE TO MEDICATIONS. CURRENT MEDICATIONS: See his copied list, which was reviewed. MEDICAL HISTORY: Includes gastric polyposis, COPD, sleep apnea, depression and anxiety, hepatitis C, hypothyroidism, and cirrhosis of the liver. SURGERIES: Right shoulder, back. SOCIAL HISTORY: Nonsmoker. Denies alcohol use. He is on disability. ROS: GENERAL: No fevers today, no chills. HEAD/ENT: No complaints of headache, visual change, or sore throat. RESPIRATORY: No increased shortness of breath or cough. CARDIOVASCULAR: Denies chest pain or palpitations. GASTROINTESTINAL: Upper abdominal pain. Does not radiate to the back. He has had no diarrhea, vomited once last night. GENITOURINARY: No significant dark urine, dysuria. PATIENT'S NAME: JM GAXIOLA [facility] AGE: 50 Y [address] ROOM: [place] [address] LOCATION: ED ADMIT DATE: 07/12/2016 ER/Outpatient Report DISCHARGE DATE: 07/12/2016 FAMILY PHYSICIAN: Lauri Cai MD ATTENDING PHYSICIAN: Dov Serrato PHYSICAL EXAMINATION: VITAL SIGNS: His temperature was 98.4, his respiratory rate 18, pulse 75, blood pressure 140/82. GENERAL: The patient is a white male. He is alert. HEENT: Head: Normocephalic. Eyes: PERRL, slight icterus maybe was noted. Nose: Septum midline. Mouth: His buccal membrane is moist. Posterior pharynx was clear. LUNGS: Breath sounds were present bilaterally. HEART: Tone is distant and regular. ABDOMEN: Appeared maybe slightly distended, slightly tender across to his upper. No rebound or guarding noted. Liver did appear enlarged. EXTREMITIES: Presence of some peripheral edema bilaterally. LABORATORY WORK: His CMS, calcium is low at 7.8, as well as his albumin at 2.6. His total bilirubin was elevated at 1.7 as well as his alkaline phosphatase at 176. His AST was 227, ALT 108. Amylase 56, his lipase 328, which is in normal range. His urine was clear. CBC: White count 5.7, his hemoglobin 9.1, which on his last admission earlier this year was 9.7. Ultrasound of his gallbladder was unremarkable. His CT abdomen and pelvis with IV contrast showed no significant changes. ASSESSMENT: 1. Abdominal pain. 2. Chronic obstructive pulmonary disease with history of sleep apnea. 3. Depression and anxiety. 4. Hepatitis C with chronic cirrhosis of the liver. 5. Hypothyroidism. PLAN: I talked to Dr. Ron. He advised that he probably would be able to go home and follow up with Dr. Cai tomorrow. The patient was advised to continue Ultram, may be increased to 100 mg tonight and then see Dr. Cai tomorrow. The patient verbalized understanding of our findings and recommendations and agreed. ALEX ELKINS FOR MD RACHID GREENE/kaila /[id number] d: 07/13/16 0153 t: 07/26/162131, OUTPATIENT REPORT
[~2016-07-12 15:38] MED LIST changes: -CALCIUM 600 +1 EAC3 PO; -CLEOCIN150 MG PO; -CPAP INH; -DUONEB INH; -FLORASTOR250 MG PO; -HUMIBID LA (MU600 MG PO; -LIDOCAINE1 EACH TOP; -MYCOSTATIN CR15 GM TOP; -OSCAL500 MG PO; -POTASSIUM CHLO20 ME2 PO; -SALINE NASAL SP88 ML NOSE; -TYLENOL325 MG PO; -VITAMIN D250000 UNIT PO; -[UNRECOGNIZED DRUG - OTHER] PO
[2016-07-12 16:59] LABS: BASOPHIL % 0.5 %; EOSINOPHIL # 0.5 K/uL (0.0-0.5); EOSINOPHIL % 8.1 %; HEMATOCRIT 29.2 % (37.0-53.0); HEMOGLOBIN 9.1 g/dL (12.0-17.0); IMMATURE GRANULOCYTE % 0.4 %; LYMPHOCYTE # 1.1 K/uL (0.8-4.0); LYMPHOCYTE % 20.1 %; MCH 29.6 pg (27.0-34.0); MCHC 31.2 gm/dL (32.0-36.5); MCV 95.1 fl (83.0-98.0); MONOCYTE # 0.4 K/uL (0.0-1.0); MONOCYTE % 6.5 %; MPV 8.7 fl (9.4-12.4); NEUTROPHIL # (ANC) 3.6 K/uL (1.4-9.0); NEUTROPHIL % 64.4 %; NRBC % 0 /100WBC (0-0.00); PLATELET COUNT 122 K/uL (150-450); RBC 3.07 M/uL (4.00-6.00); WBC 5.7 K/uL (4.0-11.0)
[2016-07-12 17:16] LABS: ALBUMIN 2.6 gm/dL (3.5-5.0); ALK PHOS 176 IU/L (33-138); ALT 108 IU/L (12-78); ANION GAP 8.7 (10.0-19.0); AST 227 IU/L (10-40); BLOOD UREA NITROGEN 13 mg/dL (6-24); CALCIUM 7.8 mg/dL (8.5-10.5); CHLORIDE 106 mMol/L (96-110); CO2 30 mMol/L (22-32); CREATININE 0.8 mg/dL (0.6-1.3); ESTIMATED GFR (MDRD EQUATION) > 60; POTASSIUM 3.7 mMol/L (3.7-5.1); SODIUM 141 mMol/L (135-145); TOTAL BILIRUBIN 1.7 mg/dL (0.0-1.5); TOTAL PROTEIN 6.8 g/dL (6.0-8.4)
[2016-07-12 17:18] LABS: BILIRUBIN URINE NEGATIVE (NEGATIVE); BLOOD URINE NEGATIVE /UL (NEGATIVE); COLOR URINE YELLOW (YELLOW); GLUCOSE URINE NEGATIVE (NEGATIVE); KETONE URINE NEGATIVE (NEGATIVE); LEUKOCYTES URINE NEGATIVE /UL (NEGATIVE); NITRITE URINE NEGATIVE (NEGATIVE); PROTEIN URINE NEGATIVE (NEGATIVE); SPEC GRAVITY URINE 1.005 (1.003-1.035); TURBIDITY URINE CLEAR (CLEAR); UROBILINOGEN URINE NORMAL (NORMAL)
[2016-09-21] MEDS ORDERED: CPAP INH (10:24)
[2016-09-21] MEDS ORDERED: DUONEB INH (10:58)
[2016-11-08] MEDS ORDERED: OSCAL500 MG PO (09:23)
[2016-11-08] MEDS ORDERED: MAG-OX-400(241400 MG PO (09:23)
[2016-11-08] MEDS ORDERED: PROZAC10 MG PO (09:24)
[2016-11-08] MEDS ORDERED: RISPERDAL0.5 MG PO (09:39)
[2016-11-11] MEDS ORDERED: CARAFATE1 GM PO (09:04)
== END 2016-07-12 19:48 | disposition disaster alternative care site (69) ==
LOC: GMED 15:38
PROVIDERS: Physician Assistant Medical
DX: R10.10 Upper abdominal pain, unspecified (principal); J44.9 Chronic obstructive pulmonary disease, unspecified; G47.30 Sleep apnea, unspecified; F32.9 Major depressive disorder, single episode, unspecified; F41.9 Anxiety disorder, unspecified; K74.60 Unspecified cirrhosis of liver; B19.20 Unspecified viral hepatitis C without hepatic coma; E03.9 Hypothyroidism, unspecified; Z98.890 Other specified postprocedural states; Z79.899 Other long term (current) drug therapy
CPT/HCPCS: Q9967

== ENCOUNTER 2016-07-21 13:44 | Inpatient (IN) | payer MEDICAID ==
[~2016-07-21] VITALS: Ht 172.7 cm; Wt 190.9 kg
--- NOTE | ~2016-07-21 | CON ---
PATIENT'S NAME: JM GAXIOLA [facility] AGE: 50 Y [address] ROOM: [place] [address] LOCATION: [facility] [place] ADMIT DATE: 07/21/2016 Consultation DISCHARGE DATE: FAMILY PHYSICIAN: OLEG BOOTH MD ATTENDING PHYSICIAN: ARNALDO DUARTE REFERRING PHYSICIAN: STEPHANIE LOUIS MD REASON FOR CONSULT: GI bleed. HISTORY OF PRESENT ILLNESS: This is a 50-year-old male who was admitted with right leg cellulitis in the setting of multiple comorbidities. The patient has underlying history of extreme obesity and liver cirrhosis, was admitted in view of pain and fever, and has been placed on multiple antibiotics. I have been asked to see him in regard to anemia and low hemoglobin in the setting of known cirrhosis of the liver and chronic hepatitis C in association with alcohol abuse and has not undergone any previous treatment for hepatitis C. 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 There is no significant drop in his hemoglobin. He also has had a previous remote colonoscopy within the last 5 years when small polyps were removed. He denies any abdominal pain, nausea, or vomiting, and his recent abdominal films as well as CT scan of the abdomen were unremarkable. PAST MEDICAL HISTORY: Severe obesity, liver cirrhosis, hepatitis C, alcohol abuse, recent cellulitis, and hypertension. PAST SURGICAL HISTORY: Back surgery, shoulder surgery, and previous upper and lower endoscopies. MEDICATIONS: As noted in MAR. SOCIAL HISTORY: Denies smoking or alcohol use at present. PHYSICAL EXAMINATION: GENERAL: Elderly, very heavy man who is somewhat drowsy, but arousable, lying on his back. PATIENT'S NAME: JM GAXIOLA [facility] AGE: 50 Y [address] ROOM: [place] [address] LOCATION: [facility] [place] ADMIT DATE: 07/21/2016 Consultation DISCHARGE DATE: FAMILY PHYSICIAN: OLEG BOOTH MD ATTENDING PHYSICIAN: ARNALDO DUARTE VITAL SIGNS: Otherwise, stable. HEENT: Atraumatic, normocephalic. Nonicteric sclerae. Pupils round and reactive. NECK: Supple. No palpable nodes or thyromegaly. CHEST: Bilateral poor air entry. HEART: S1 and S2 normal. ABDOMEN: Very obese with no palpable masses or tenderness. EXTREMITIES: Significant edema and bilateral rashes suggestive of dermatitis and possible overlying cellulitis. LABORATORY DATA: Labs are reviewed, showing hemoglobin of 7.7, hematocrit 24.8, and platelets 118,000. His chemistry panel does reveal total bilirubin of 2.7, AST 187, ALT 98, and serum albumin of 2.6. PT/INR of 1.5. CT scan of the abdomen revealing a small cirrhotic liver with splenomegaly without any ascites. ASSESSMENT AND PLAN: A 50-year-old morbidly obese man with significant comorbidities and evidence of chronic gastrointestinal bleed with upper endoscopic findings as noted above. There is no significant drop in hemoglobin to require repeat endoscopy at present. I will maximize his medical therapy with proton pump inhibitor twice a day along with Carafate suspension and transfuse him to his baseline values. The patient is at very high risk for any invasive procedure, and at this point, I believe the risks of the procedure outweigh the benefits unless he continues to show drop in hematocrit, which is not the case at present. Thank you for this consult. STEPHANIE LOUIS MD AM/kaila /[id number] d: 07/24/16 1156 t: 07/25/16 1522, CONSULTATION REPORT
--- NOTE | ~2016-07-21 | ER ---
PATIENT'S NAME: JM GAXIOLA [facility] AGE: 50 Y [address] ROOM: [place] [address] [place] [facility] [place] DATE: 07/21/2016 ER/Outpatient Report DISCHARGE DATE: FAMILY PHYSICIAN: OLEG BOOTH MD ATTENDING PHYSICIAN: ARNALDO DUARTE CHIEF COMPLAINT: Cough, abdominal pain, and right leg pain. HISTORY OF PRESENT ILLNESS: The patient states that for the last several days, he has been getting worse with right leg pain, swelling, cough. He has a known history of cirrhosis from hepatitis C, hypothyroid, anxiety, multiple abdominal issues, sleep apnea, depression. He was hospitalized in the middle of June. Over the last 5 to 7 days, he has had pain and swelling with redness of his right lower extremity. He does not know if he has had any fevers. He has not really been taking anything other than his regular medicines and occasional over-the- counter medicine for same. PAST MEDICAL HISTORY: Documented on the record and reviewed by me. SOCIAL HISTORY: Documented on the record and reviewed by me. MEDICATIONS: Documented on the record and reviewed by me. ALLERGIES: DOCUMENTED ON THE RECORD AND REVIEWED BY ME. REVIEW OF SYSTEMS: All systems reviewed and negative except as noted in the HPI. PHYSICAL EXAMINATION: VITAL SIGNS: Blood pressure 130/73, pulse 100, respiratory rate is 18, temperature 101.1, SpO2 is 98% on room air. Pain is rated 10/10. GENERAL: Age-appropriate male, in obvious pain, but no respiratory distress with persistent cough. On initial evaluation, morbidly obese, resting on the exam table. NEURO: The patient is awake, he moves all extremities appropriately. No obvious asymmetry on exam. HEENT: Normocephalic, atraumatic. The eyes are PERRL. The oropharynx is dry. No exudates. NECK: Supple. Trachea is midline. PATIENT'S NAME: JM GAXIOLA [facility] AGE: 50 Y [address] ROOM: [place] [address] [place] [facility] [place] DATE: 07/21/2016 ER/Outpatient Report DISCHARGE DATE: FAMILY PHYSICIAN: OLEG BOOTH MD ATTENDING PHYSICIAN: ARNALDO DUARTE CHEST: Heart is tachycardic with no obvious murmurs, approximately 95-100 beats per minute. LUNGS: Grossly clear to auscultation bilateral, but auscultation difficult secondary to body habitus and the patient's active coughing. ABDOMEN: Diffusely tender. No focal rebound, guarding, or masses. BACK: Generally unremarkable. EXTREMITIES: The right lower extremity is markedly edematous with erythema extending from the lateral knee to the medial thigh which is exquisitely tender to palpation. This extends all the way down through the foot. No obvious masses appreciated. No focal tenderness in that region. The leg is markedly edematous compared to the contralateral side. No obvious wounds or breakdown. SKIN: Warm, dry, and intact except as noted above. LABS AND IMAGING: Chest x-ray interpreted by me, with no obvious pneumonia, limited body habitus, underpenetrated film. LABS: CMS notable for potassium of 3.2, total bilirubin of 2.7, up from 1.7. AST of 187, ALT of 98, and GFR 60. Amylase and lipase of 46 and 434 respectively. WBCs of 13.6 with 10.6, neutrophils, hemoglobin is 8.4, hematocrit is 26.7, and platelets of 152. D-dimer is 1.62, INR is 1.5, procalcitonin 0.71, lactate is 1.8, CRP is 6.31. Right lower extremity ultrasound was obtained with no evidence of DVT, per report. IMPRESSION: 1. Right lower extremity cellulitis. 2. Mild pancreatitis with hyperbilirubinemia, likely secondary to prior hepatobiliary pathology. 3. Cough x1 week. 4. Significant pain in the right lower extremity. 5. Elevated D-dimer without DVT. EMERGENCY DEPARTMENT COURSE: The patient was seen and evaluated as above. Based on his current presentation, cellulitis versus DVT was most prominent. D-dimer is elevated. Ultrasound negative for DVT. The patient's cough subsided significantly after being administered two doses of pain medication. He did persistently moan in pain. He was given clindamycin for a skin infection and will be admitted for further evaluation of his up trending LFTs with mild pancreatitis and re- evaluation of his cellulitis to ensure that he is not rapidly progressing; however, given the current time frame, I think he is unlikely to do so, such as necrotic fascia; however, the amount of pain is disproportional to typical cellulitis. All questions were answered and the patient was admitted to the hospitalist service without further issue. PATIENT'S NAME: JM GAXIOLA [facility] AGE: 50 Y [address] ROOM: [place] [address] [place] [facility] [place] DATE: 07/21/2016 ER/Outpatient Report DISCHARGE DATE: FAMILY PHYSICIAN: OLEG BOOTH MD ATTENDING PHYSICIAN: ARNALDO DUARTE MD AMAURY GREENE/kaila /[id number] d: 07/22/16 1217 t: 07/26/16 2145, OUTPATIENT REPORT
--- NOTE | ~2016-07-21 | HP ---
PATIENT'S NAME: JM GAXIOLA [facility] AGE: 50 Y [address] ROOM: [id number] [place], [place] [address] LOCATION: [facility] [place] ADMIT DATE: 07/21/2016 History & Physical DISCHARGE DATE: FAMILY PHYSICIAN: Tessie Ashby MD ATTENDING PHYSICIAN: ARNALDO DUARTE DATE OF SERVICE: CHIEF COMPLAINT: Right lower extremity pain. HISTORY OF PRESENT ILLNESS: This is a 50-year-old male who is morbidly obese with past medical history of liver cirrhosis, history of hepatitis C, and also history of bilateral lower extremity edema. He was brought in today by his ex-. History was obtained from the patient though he is not very reliable as per the time frame of the onset of his symptoms. He reported that for the past 3 days that he has been having worsening cough. The patient has history of chronic cough; for the last 3 days, it has increased in frequency and also is productive of yellowish phlegm. He also reports associated chills with fever. He reported that he checked his temperature at home and he got 102 Fahrenheit and another time 103. He also reports that for the past week that he has been having nausea and vomiting, however, he was unable to visit his primary care doctor, as he had problem with transportation. He reported that he tried to reach his whom they are currently in the process of , and the refused to come over; however, the came over today and found him sick and decided to bring him to the ER at [facility]. The patient reports that he vomits once per day nonbloody, not coffee ground. He reports that for the last 2 days that he developed right lower extremity swelling associated with pain, such pain is rated as 9/10, constant, which is made worse when he tries to walk. He also notes associated midsternal chest pain which is worse when he coughs or when he touches his chest. The patient denies diarrhea. He reports he has 2-3 bowels per day. He reports he is compliant with his lactulose. The patient denies loss of appetite. Also notes generalized headache which has been on as well for the past week. Denies any fall. Denies any urinary symptoms. REVIEW OF SYSTEMS: The 13 elements of review of systems were asked and as documented in the HPI. The others are negative. PAST MEDICAL HISTORY: Includes liver cirrhosis, history of hepatitis C, chronic venous dermatitis, coronary artery disease, alcoholic liver disease, obstructive sleep apnea on CPAP, depression, anxiety, essential hypertension, and thyroid disease. PATIENT'S NAME: JM GAXIOLA [facility] AGE: 50 Y [address] ROOM: [place] [address] LOCATION: [facility] [place] ADMIT DATE: 07/21/2016 History & Physical DISCHARGE DATE: FAMILY PHYSICIAN: Tessie Ashby MD ATTENDING PHYSICIAN: ARNALDO DUARTE SOCIAL HISTORY: Lives with his stepdaughter. Denies any history of smoking and denies use of alcohol currently. FAMILY HISTORY: Mother had leukemia and CVA in dad. PAST SURGICAL HISTORY: Includes right shoulder surgery, back surgery, and rotator cuff surgery. PHYSICAL EXAMINATION: VITAL SIGNS: Blood pressure 147/79, oxygen saturation 97% on room air, temperature 98.5, pulse 92, and respiratory rate 16. GENERAL: A morbidly obese male who is alert, awake, and oriented x3. Sometimes a little bit drowsy, but easily arousable. He is oriented x3. There is no flapping tremor. The patient is wheezing and also uncomfortable secondary to the right lower extremity pain. NEUROLOGIC: Cranial nerves 2-12 are intact bilaterally. Sensory is intact bilaterally in both upper and lower extremities. Power in both upper extremities is at least 4. Unable to determine the power in the right lower extremity secondary to the pain. Power in left lower extremity is at least 3. HEENT: Normocephalic, atraumatic. Pupils equal and reactive to light bilaterally. Pharynx is normal. Mucosa is dry. Ears: No obvious ear discharge or drainage. NECK: Short, obese. No area of tenderness. CARDIOVASCULAR SYSTEM: Normal S1, S2. Regular rate and rhythm. CHEST: Decreased breath sounds in bilateral bases secondary to an obese chest wall. ABDOMEN: Obese with pannus. There is no area of tenderness. There is no palpable organomegaly. Positive bowel sounds. EXTREMITIES: Right lower extremity appears more swollen than the left. It is red up to the distal 3rd of the thigh. It is tender with changes of chronic venous dermatitis on the skin. Pulses, 1+ dorsalis pedis and posterior tibial pulsation bilaterally. SKIN: The patient has features of chronic venous dermatitis on the skin of both lower extremities and also striae baker on the anterior abdominal wall. DIAGNOSTIC DATA: Laboratory Data: Lactic acid 1.8. WBC 13.6, H and H 8.4/26.7, and platelet 152. Sodium 135, potassium 3.2, chloride 100, bicarbonate 25, calcium 7.6, creatinine 1.1, BUN 22, and glucose 116. ALT 98, AST 187, alkaline phosphatase 138, and total bilirubin 2.7. Anion gap 13.2. Globulin 2.6. UA: Leukocytes negative, nitrite negative. Procalcitonin 0.71. CRP 6.31. Amylase 46, lipase 434. Neutrophil differential 78.5. PATIENT'S NAME: JM GAXIOLA [facility] AGE: 50 Y [address] ROOM: [place] [address] [place]: [facility] [place] ADMIT DATE: 07/21/2016 History & Physical DISCHARGE DATE: FAMILY PHYSICIAN: Tessie Ashby MD ATTENDING PHYSICIAN: ARNALDO DUARTE Microbiology: Blood culture x2 sets are pending. Radiology: Chest x-ray, no acute infiltrate. ASSESSMENT AND PLAN: This is a 50-year-old male who presents with right lower extremity swelling and pain. 1. Right lower extremity swelling and pain, present on admission. Differential includes:. a. Cellulitis. b. Could also be acute deep venous thrombosis. So, the patient has received 1 dose of clindamycin now in the ER, we will continue him on clindamycin and follow up on the results of the cultures and we will get bilateral lower extremity duplex scan in the morning, but for now, we will give him a loading dose of Lovenox x1. 2. Anemia, present on admission, probably secondary to chronic liver disease versus probably occult blood loss. We will send stool for fecal occult blood. 3. Sepsis, present on admission, probable etiology may be from right lower extremity cellulitis. We will continue the patient on the antibiotics. 4. Hypokalemia, present on admission. We will replete. 5. Chronic alcoholic liver disease, appears to be stable. We will continue the patient on his lactulose and continue him on his other chronic liver disease medications. 6. Acute encephalopathy, present on admission. The patient appears drowsy. This may be possibly secondary to hepatic encephalopathy. So, we are going to check his ammonia level now or maybe secondary building up of hypercarbia. So, we will also do an ABG to also rule this out. 7. Elevated liver enzymes, present on admission, secondary to his chronic liver disease. 8. Obstructive sleep apnea, stable. We will ensure the patient continues on CPAP at night here. 9. Essential hypertension, controlled. We will continue the patient on his medication. 10. Anxiety, present on admission. We will continue the patient on his medication. 11. Coronary artery disease without angina. We will continue the patient on his medication. We will do 1 set of cardiac enzymes now and follow up from there given his chest pain. However, the chest pain is reproducible during exam. Line of management was explained to the patient, whose questions were answered and he had no further questions at this time. PATIENT'S NAME: JM GAXIOLA [facility] AGE: 50 Y [address] ROOM: [place] [address] LOCATION: [facility] [place] ADMIT DATE: 07/21/2016 History & Physical DISCHARGE DATE: FAMILY PHYSICIAN: Tessie Ashby MD ATTENDING PHYSICIAN: ARNALDO DUARTE ARNALDO DUARTE MD ODO/modl /[id number] D: [id number] T: [id number] HISTORY & PHYSICAL
--- NOTE | ~2016-07-21 | CON ---
PATIENT'S NAME: JM GAXIOLA [facility] AGE: 50 Y [address] ROOM: [place] [address] [place] [facility] [place]: 07/21/2016 Consultation DISCHARGE DATE: 07/27/2016 FAMILY PHYSICIAN: OLEG BOOTH MD ATTENDING PHYSICIAN: ARNALDO DUARTE Added DOS per physician 09/22/2016 AO DATE OF CONSULTATION: 09/22/2016 REFERRING PHYSICIAN: STEPHANIE LOUIS MD REASON FOR CONSULT: GI bleed. HISTORY OF PRESENT ILLNESS: This is a 50-year-old male who was admitted with right leg cellulitis in the setting of multiple comorbidities. The patient has underlying history of extreme obesity and liver cirrhosis, was admitted in view of pain and fever, and has been placed on multiple antibiotics. I have been asked to see him in regard to anemia and low hemoglobin in the setting of known cirrhosis of the liver and chronic hepatitis C in association with alcohol abuse and has not undergone any previous treatment for hepatitis C. 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 There is no significant drop in his hemoglobin. He also has had a previous remote colonoscopy within the last 5 years when small polyps were removed. He denies any abdominal pain, nausea, or vomiting, and his recent abdominal films as well as CT scan of the abdomen were unremarkable. PAST MEDICAL HISTORY: Severe obesity, liver cirrhosis, hepatitis C, alcohol abuse, recent cellulitis, and hypertension. PAST SURGICAL HISTORY: Back surgery, shoulder surgery, and previous upper and lower endoscopies. MEDICATIONS: As noted in MAR. SOCIAL HISTORY: Denies smoking or alcohol use at present. PATIENT'S NAME: JM GAXIOLA [facility] AGE: 50 Y [address] ROOM: [place] [address] [place] [facility] [place]: 07/21/2016 Consultation DISCHARGE DATE: 07/27/2016 FAMILY PHYSICIAN: OLEG BOOTH MD ATTENDING PHYSICIAN: ARNALDO DUARTE PHYSICAL EXAMINATION: GENERAL: Elderly, very heavy man who is somewhat drowsy, but arousable, lying on his back. VITAL SIGNS: Otherwise, stable. HEENT: Atraumatic, normocephalic. Nonicteric sclerae. Pupils round and reactive. NECK: Supple. No palpable nodes or thyromegaly. CHEST: Bilateral poor air entry. HEART: S1 and S2 normal. ABDOMEN: Very obese with no palpable masses or tenderness. EXTREMITIES: Significant edema and bilateral rashes suggestive of dermatitis and possible overlying cellulitis. LABORATORY DATA: Labs are reviewed, showing hemoglobin of 7.7, hematocrit 24.8, and platelets 118,000. His chemistry panel does reveal total bilirubin of 2.7, AST 187, ALT 98, and serum albumin of 2.6. PT/INR of 1.5. CT scan of the abdomen revealing a small cirrhotic liver with splenomegaly without any ascites. ASSESSMENT AND PLAN: A 50-year-old morbidly obese man with significant comorbidities and evidence of chronic gastrointestinal bleed with upper endoscopic findings as noted above. There is no significant drop in hemoglobin to require repeat endoscopy at present. I will maximize his medical therapy with proton pump inhibitor twice a day along with Carafate suspension and transfuse him to his baseline values. The patient is at very high risk for any invasive procedure, and at this point, I believe the risks of the procedure outweigh the benefits unless he continues to show drop in hematocrit, which is not the case at present. Thank you for this consult. STEPHANIE LOUIS MD AM/kaila /[id number] Added DOS per physician 09/22/2016 AO d: 07/24/16 1156 t: 09/22/16 1405, CONSULTATION REPORT
--- NOTE | ~2016-07-21 | ENPV ---
Vascular Lower Extremities DVT Study Procedure Demographics Patient Name JM GAXIOLA Date of Study 07/21/2016 R Patient Number [id number] Gender Male Date of 1965 Age 50 Visit Number [id number] Height Accession Number [id number] Weight Room Number G3219 BSA BMI Referring Interpreting Alethea Joyce MD Physician Physician Physician Ordering Physician Ama Monae MD Seasonal Delivery Driver Vat Operator Isaac Samayoa T, [facility] Conclusions Summary No evidence of deep vein thrombosis or superficial thrombophlebitis in the right lower extremity . Calf veins were difficult to evaluate. Procedure Type of Study: Veins:Lower Extremities DVT Study, Lower Extremity Right. Indications for Study:Swelling of Limb and Erythema. Patient Status:STAT. Study Location:ER. Technical Quality:Adequate visualization. - Preliminary reported to:Dr. Serrato. Velocities are measured in cm/s ; Diameters are measured in cm Right Lower Extremities DVT Study Measurements Right 2D and Doppler Measurements + + + + +------+------+ + !Location !Visualized!Compressibility!Thrombosis!Signal!Reflux!Reflux ! ! ! ! ! ! ! !(sec) ! + + + + +------+------+ + !GSV Thigh !Yes !Yes !None !Phasic!No ! ! + + + + +------+------+ + !Common !Yes !Yes !None !Phasic!No ! ! !Femoral ! ! ! ! ! ! ! + + + + +------+------+ + !Prox !Yes !Yes !None !Phasic!No ! ! !Femoral ! ! ! ! ! ! ! + + + + +------+------+ + !Mid Femoral!Yes !Yes !None !Phasic!No ! ! + + + + +------+------+ + !Dist !Yes !Yes !None !Phasic!No ! ! !Femoral ! ! ! ! ! ! ! + + + + +------+------+ + !Popliteal !Yes !Yes !None !Phasic!No ! ! + + + + +------+------+ + !Gastroc !Yes !Yes !None !Phasic!No ! ! + + + + +------+------+ + !PTV !Yes ! !None !Phasic!No ! ! + + + + +------+------+ + !Peroneal !Yes ! !None !Phasic!No ! ! + + + + +------+------+ + Left Lower Extremities DVT Study Measurements Left 2D and Doppler Measurements + + + + +------+------+ + !Location !Visualized!Compressibility!Thrombosis!Signal!Reflux!Reflux ! ! ! ! ! ! ! !(sec) ! + + + + +------+------+ + !Common !Yes !Yes !None !Phasic! ! ! !Femoral ! ! ! ! ! ! ! + + + + +------+------+ + Signature dtt: dtd: 07/21/16 1423 Physician Self Edit
--- NOTE | ~2016-07-21 | DS ---
PATIENT'S NAME: JM GAXIOLA [facility] AGE: 50 Y [address] ROOM: [address] [place], [place] [address] [place] [facility] [place]: 07/21/2016 Discharge Summary DISCHARGE DATE: 07/27/2016 FAMILY PHYSICIAN: Lauri Cai MD ATTENDING PHYSICIAN: Shiela Freedman DISCHARGE DIAGNOSES: 1. Right lower extremity cellulitis. 2. Hepatic encephalopathy. 3. Hypokalemia. 4. Congestion. 5. Chronic gastrointestinal bleed. 6. Liver cirrhosis. 7. Morbid obesity. 8. Hepatitis C. 9. Essential hypertension. 10. Chronic hypercapnic respiratory failure, secondary to obstructive sleep apnea. HOSPITAL COURSE: Please refer to admitting history and physical as dictated by Dr. Freedman. Briefly, the patient was admitted to [facility] with right leg pain and swelling. He was noted to have marked edema and erythema, cellulitis of the right lower extremity, as well as pain in the right lower extremity. Ultrasound was performed, which was negative for DVT. His home CPAP was used at bedtime or when the patient was asleep. His lactulose was increased due to his hepatic encephalopathy. Wound Care did follow along throughout the patient's stay. Limited ultrasound of the abdomen showed no ascites in the abdomen. GI consult was obtained. He was placed on Rifaximin. He was noted to have hypokalemia throughout his stay. This was replaced IV as well as p.o. He was placed on clindamycin for his lower extremity cellulitis. GI felt as though the patient had a chronic GI bleed. They recommended to start Carafate and increase his Protonix to twice daily. His hemoglobin remained stable throughout his stay. His right lower extremity cellulitis did improve. His clindamycin was changed to p.o. on 07/25/2016. He was noted to have some sinus congestion. He was placed on Mucinex as well as at home nasal spray. The patient continued to improve. His vital signs were stable. His cellulitis was much better. He was tolerating the p.o. clindamycin. He was on a probiotic as well. On 07/27/2016, it was felt as though the patient was stable to go home with Home Health, PT, and OT as well as senior care Home Health. LABORATORY DATA: Sodium remained within normal limits. Potassium upon admit 3.2, it did drop as low as 2.8, prior to discharge 3.4, calcium 7.4, BUN 22, upon admit, 13 prior to discharge, creatinine 0.7 to 1.1, AST 187, ALT 98, phos 3.2. Mag 1.9. GFR remained greater than 60. Amylase 46, lipase 434. PATIENT'S NAME: JM GAXIOLA [facility] AGE: 50 Y [address] ROOM: [address] [place] [id number] [place] [facility] [place] DATE: 07/21/2016 Discharge Summary DISCHARGE DATE: 07/27/2016 FAMILY PHYSICIAN: Lauri Cai MD ATTENDING PHYSICIAN: Shiela Freedman Ammonia upon admit 84. WBCs 13.6 upon admit, prior to discharge 6.6, hemoglobin remained stable at 7.1 to 8.4, hematocrit 22.5 to 26.7, and platelets 113 to 152. Stool was positive for occult blood. Blood culture showed no growth at 5 days. RADIOLOGY REPORT: Chest x-ray done 07/21/2016 showed no acute findings. No findings of pneumonia. Lower extremity Doppler showed no evidence of DVT or superficial thrombophlebitis of the right lower extremity. DISCHARGE INSTRUCTIONS: The patient will be discharged to home. Diet: Regular. Activity: As tolerated. Followup appointment with Dr. Cai with a BMP in 3 days. Home Health with senior care, PT and OT to follow as an outpatient. Home Health care nursing to monitor cellulitis, vital signs, and medications setup and weekly and p.r.n. labs. CPAP when asleep. PCP to manage KCl based on BMP. DISCHARGE MEDICATIONS: 1. Clindamycin 300 mg p.o. 4 times a day, stop after 07/30/2016 dose. 2. Lasix 40 mg p.o. daily. 3. Mucinex 600 mg p.o. twice daily for 1 week then p.r.n. 4. Lactulose 30 mL p.o. every 8 hours. 5. Levothyroxine 50 mcg p.o. daily. 6. Lidocaine 1 patch everyday off for 12 hours. 7. Zaroxolyn 2.5 mg p.o. daily. 8. Nystatin 15 g powder apply to abdominal folds for 7 days. 9. Protonix 40 mg p.o. twice daily. 10. Rifaximin 550 mg p.o. twice daily. 11. Florastor 250 mg p.o. twice daily x10 days. 12. Aldactone 12.5 mg p.o. daily. 13. Carafate 1000 mg p.o. before meals and at bedtime. 14. ProAir 2 puffs inhaler every 4 hours as needed for shortness of breath. 15. Tylenol 1000 mg p.o. every 6 hours as needed for pain or headaches. 16. Potassium 20 mEq p.o. daily. PCP to manage based on BMP. 17. Tramadol 50 mg p.o. twice daily p.r.n. pain. 18. Nitrostat 0.4 mg sublingual every 5 minutes p.r.n. 19. Saline nasal spray 1 spray to nose twice daily p.r.n. for congestion or dry nose. Thank you for allowing us to participate in the care of this patient as he has been hospitalized at [facility]. Time spent at the bedside as well as in coordination of care and discharge medication reconciliation 35 minutes. PATIENT'S NAME: JM GAXIOLA [facility] AGE: 50 Y [address] ROOM: [place] [address] [place] [facility] [place]: 07/21/2016 Discharge Summary DISCHARGE DATE: 07/27/2016 FAMILY PHYSICIAN: Lauri Cai MD ATTENDING PHYSICIAN: Shiela Freedman APRN FOR MD MEREDITH SANTOS/kaila /[id number] d: 07/28/16 0554 t: 08/02/16 1507, DISCHARGE SUMMARY
[2016-07-21 14:14] LABS: BASOPHIL % 0.1 %; EOSINOPHIL # 0.2 K/uL (0.0-0.5); EOSINOPHIL % 1.5 %; HEMATOCRIT 26.7 % (37.0-53.0); HEMOGLOBIN 8.4 g/dL (12.0-17.0); IMMATURE GRANULOCYTE # 0.1 K/uL (0.0-0.3); IMMATURE GRANULOCYTE % 0.7 %; LYMPHOCYTE # 1.2 K/uL (0.8-4.0); LYMPHOCYTE % 8.9 %; MCH 29.1 pg (27.0-34.0); MCHC 31.5 gm/dL (32.0-36.5); MCV 92.4 fl (83.0-98.0); MONOCYTE # 1.4 K/uL (0.0-1.0); MONOCYTE % 10.3 %; MPV 9.4 fl (9.4-12.4); NEUTROPHIL # (ANC) 10.6 K/uL (1.4-9.0); NEUTROPHIL % 78.5 %; NRBC % 0 /100WBC (0-0.00); RBC 2.89 M/uL (4.00-6.00); RDW-CV 17.2 % (11.9-14.6); WBC 13.6 K/uL (4.0-11.0)
[2016-07-21 14:17] LABS: PLATELET COUNT 152 K/uL (150-450)
[2016-07-21 14:31] LABS: ALBUMIN 2.6 gm/dL (3.5-5.0); ALK PHOS 138 IU/L (33-138); ALT 98 IU/L (12-78); ANION GAP 13.2 (10.0-19.0); AST 187 IU/L (10-40); BLOOD UREA NITROGEN 22 mg/dL (6-24); CALCIUM 7.6 mg/dL (8.5-10.5); CHLORIDE 100 mMol/L (96-110); CO2 25 mMol/L (22-32); CREATININE 1.1 mg/dL (0.6-1.3); ESTIMATED GFR (MDRD EQUATION) > 60; POTASSIUM 3.2 mMol/L (3.7-5.1); SODIUM 135 mMol/L (135-145); TOTAL PROTEIN 6.5 g/dL (6.0-8.4)
[2016-07-21 14:34] LABS: TOTAL BILIRUBIN 2.7 mg/dL (0.0-1.5)
[2016-07-21 15:14] LABS: INR - (THERAPEUTIC) 1.5 (0.92-1.07); PROTIME 15.8 SECONDS (9.8-11.4)
--- NOTE | 2016-07-21 19:12 | NUR ---
Pt is 50 y/o male admit for pancreatitis/cellulitis right lower extremity for hospitalist. Pt oriented x3 but in and out of lethargy. No allergies to meds. Hx htn,TX,CAD,hep C,hepatic encephalopathy,cirrhosis,end stage liver,sleep apnea-CPAP,edema feet and legs,SOB/fatigue,pneumonia,COPD,ulcers,anemia, depression,anxiety. Pt is unkempt and moves with difficulty. Legs are extremely edematous and R)lower extremity is scarlet red. CAme through ED.
[2016-07-21 19:54] LABS: BICARBONATE 24.1 mmol/L (18.0-23.0); PCO2 35 mmHg (35-45); PO2 110 mmHg (80-90)
[2016-07-21 19:57] LABS: PHOSPHORUS 2.3 mg/dL (2.5-4.9)
[2016-07-22 04:55] LABS: BASOPHIL % 0.2 %; EOSINOPHIL # 0.4 K/uL (0.0-0.5); EOSINOPHIL % 3.7 %; HEMATOCRIT 24.4 % (37.0-53.0); HEMOGLOBIN 7.5 g/dL (12.0-17.0); IMMATURE GRANULOCYTE % 0.4 %; LYMPHOCYTE # 1.3 K/uL (0.8-4.0); LYMPHOCYTE % 12.9 %; MCH 28.8 pg (27.0-34.0); MCHC 30.7 gm/dL (32.0-36.5); MCV 93.8 fl (83.0-98.0); MONOCYTE # 1.2 K/uL (0.0-1.0); MONOCYTE % 12.1 %; MPV 9.8 fl (9.4-12.4); NEUTROPHIL % 70.7 %; NRBC % 0 /100WBC (0-0.00); PLATELET COUNT 116 K/uL (150-450); RDW-CV 17.1 % (11.9-14.6); WBC 9.9 K/uL (4.0-11.0)
[2016-07-22 05:20] LABS: ANION GAP 11.1 (10.0-19.0); BLOOD UREA NITROGEN 21 mg/dL (6-24); CALCIUM 7.5 mg/dL (8.5-10.5); CHLORIDE 103 mMol/L (96-110); CO2 24 mMol/L (22-32); ESTIMATED GFR (MDRD EQUATION) > 60; MAGNESIUM 2.3 mg/dL (1.8-2.6); POTASSIUM 3.1 mMol/L (3.7-5.1); SODIUM 135 mMol/L (135-145)
--- NOTE | 2016-07-22 05:31 | NUR ---
Significant Event: PATIENT IS ALERT, DROWSY BUT AROSES WITH EASE. VERY TALKATIVE. AMMONIA LEVELS HIGH, IS TALKING LACTULOSE Q2HRS UNTIL GOAL OF DAILY BM OF 4-5. NO BM'S OF YET. HAS CELLULITIS TO R) LOWER LEG UP TO THIGH LEVEL, AREAS MARKED YESTERDAY. CURRENTLY ON IV ATB. WILL HAVE BILAT DOPPLARS THIS AM. EDEMA TO BILAT LEGS 3+. UP WITH 2 ASSIST TO COMMODE. VOIDS PER URINAL. WEARS C-PAP/B-PAP AT NIGHT. IV TO L) WRIST WITH NO COMPLICATIONS AND IV FLUIDS INFUSING WITHOUT DIFFICULTY. C/O LEG PAIN AND GAVE TORADOL AT 1850 WITH RELIEF NOTED. NO OTHER PAIN MEDS GIVEN THROUGH NIGHT. NOT MUCH SLEEP OVERNIGHT, DROWSY AND NEEDS REMAINDERS TO WHERE C-PAP WHEN SLEEPING. Follow up:
[2016-07-22] MEDS ORDERED: LIDOCAINE1 EACH TRANS (08:13)
[2016-07-22] MEDS ORDERED: POTASSIUM CHLO20 ME2 PO (08:13)
[2016-07-22] MEDS ORDERED: ULTRAM50 MG PO (08:14)
[2016-07-22] MEDS ORDERED: PROAIR HFA8.5 GM INH (08:15)
[2016-07-22] MEDS ORDERED: NITROSTAT0.4 MG SL (08:15)
[2016-07-22] MEDS ORDERED: TYLENOL325 MG PO (08:16)
[2016-07-22] MEDS ORDERED: SALINE NASAL SP88 ML NOSE (08:16)
--- NOTE | 2016-07-22 13:46 | NUR ---
Met with patient at bedside at 1015 today. Reintroduced myself to him as I have been his palliative care nurse in the past. Had difficulty talking to patient today as he was on BiPap and very sleepy. He does have Medicaid at this time. He states his plan would be to return home as discharge as he has his daughter to help care for him. CM will continue to follow while here and assess for any discharge needs.
--- NOTE | 2016-07-22 15:21 | NUR ---
Significant Event: Pt c/o intermittent right lower leg pain but falls back to sleep. a/o x3 but at times confused, reorients easily. Amb to br 1 assist. Inc bm x1, showered. Up in recliner. Has had 4 bm's so lactolose changed to q 8 hrs. hgb 7.5, hematest x1 sent, was positive. Audible wheezes at times, on routine RT tx. K+ level 3.1, received 80 meq K over 8 hr(2 40meq bags). Ammonia level 84. CPAP on when sleeping. Right lower leg red/swollen. Follow up:
--- NOTE | 2016-07-23 04:51 | NUR ---
Significant Event: Patient is A&O x 3 but forgetful. Reorients without difficulty. Ambulates 1 assist to bathroom. Has voided using urinal. Had loose BM x 1 tonight. Uses CPAP when sleeping. Redness to R) leg has improved but still swollen and red. Getting IV Clindamycin. IV to L) wrist, NS @ 75. Had a nosebleed x 2 overnight. C/o pain of 5/10 but said it was tolerable. Rested well throughout the night. Follow up: Continue to monitor.
[2016-07-23 06:05] LABS: BASOPHIL % 0.3 %; EOSINOPHIL # 0.5 K/uL (0.0-0.5); HEMATOCRIT 22.5 % (37.0-53.0); HEMOGLOBIN 7.1 g/dL (12.0-17.0); IMMATURE GRANULOCYTE % 0.5 %; LYMPHOCYTE % 15.9 %; MCH 29.2 pg (27.0-34.0); MCHC 31.6 gm/dL (32.0-36.5); MCV 92.6 fl (83.0-98.0); MONOCYTE # 0.7 K/uL (0.0-1.0); MONOCYTE % 11.4 %; MPV 9.1 fl (9.4-12.4); NEUTROPHIL # (ANC) 4.2 K/uL (1.4-9.0); NEUTROPHIL % 64.9 %; NRBC % 0 /100WBC (0-0.00); PLATELET COUNT 113 K/uL (150-450); RBC 2.43 M/uL (4.00-6.00); RDW-CV 17.4 % (11.9-14.6); WBC 6.4 K/uL (4.0-11.0)
[2016-07-23 06:18] LABS: ALBUMIN 2.1 gm/dL (3.5-5.0); BLOOD UREA NITROGEN 17 mg/dL (6-24); CHLORIDE 104 mMol/L (96-110); CO2 27 mMol/L (22-32); CREATININE 0.9 mg/dL (0.6-1.3); ESTIMATED GFR (MDRD EQUATION) > 60; PHOSPHORUS 2.5 mg/dL (2.5-4.9); SODIUM 139 mMol/L (135-145)
[2016-07-23 06:20] LABS: ANION GAP 10.9 (10.0-19.0); CALCIUM 7.4 mg/dL (8.5-10.5); POTASSIUM 2.9 mMol/L (3.7-5.1)
--- NOTE | 2016-07-23 16:21 | NUR ---
Significant Event: Patient is drowsy at times, but oriented x3. Forgetful and confused at times. Complaints of entire body pain this afternoon. Morphine IR given x1 at 1410- relief noted. Had one bloody nose. GI consulted. Hematest was positive yesterday. Has only had 1 BM today. Incontient of urine and stool sometimes. SL'd today. Started on xifaxian. Potassium 40meq infusing. New IV in the process of being restarted. Potassium on hold while trying to start a new IV. PO potassium given as well. Nystatin to abdominal folds and groin. On IV antbiotics. 3+ edema to bilateral lower extremities. On the right leg the cellulitis was markd yesterday- not weeping. Bag bath this AM. Cooperative with cares.
--- NOTE | 2016-07-24 04:27 | NUR ---
Significant Event: Pt A&Ox3, but forgetful. Has been urinating in the water pitcher. Does have one that says urine. Redness to RLE has improved. The outline is much smaller. Receiving intermittent clindamycin. PIV to RFA, SL. Received 40mEq of IV K+ yesterday. Nystatin to abdominal folds and groin. Vital signs stable, RA. Does where CPAP while sleeping. Pt was wheezes and PRN breathing treatments were given. No nosebleed overnight. Follow up: Continue with plan of care.
[2016-07-24 05:43] LABS: BASOPHIL % 0.6 %; EOSINOPHIL # 0.7 K/uL (0.0-0.5); EOSINOPHIL % 11.3 %; HEMATOCRIT 24.8 % (37.0-53.0); IMMATURE GRANULOCYTE % 0.6 %; LYMPHOCYTE % 15.9 %; MCH 29.1 pg (27.0-34.0); MCV 93.6 fl (83.0-98.0); MONOCYTE # 0.8 K/uL (0.0-1.0); MONOCYTE % 12.9 %; MPV 8.7 fl (9.4-12.4); NEUTROPHIL # (ANC) 3.7 K/uL (1.4-9.0); NEUTROPHIL % 58.7 %; NRBC % 0 /100WBC (0-0.00); PLATELET COUNT 118 K/uL (150-450); RBC 2.65 M/uL (4.00-6.00); RDW-CV 17.3 % (11.9-14.6); WBC 6.2 K/uL (4.0-11.0)
[2016-07-24 05:47] LABS: HEMOGLOBIN 7.7 g/dL (12.0-17.0)
[2016-07-24 05:56] LABS: ALBUMIN 2.3 gm/dL (3.5-5.0); ANION GAP 9.2 (10.0-19.0); BLOOD UREA NITROGEN 14 mg/dL (6-24); CALCIUM 7.5 mg/dL (8.5-10.5); CHLORIDE 100 mMol/L (96-110); CO2 30 mMol/L (22-32); ESTIMATED GFR (MDRD EQUATION) > 60; MAGNESIUM 1.8 mg/dL (1.8-2.6); PHOSPHORUS 3.2 mg/dL (2.5-4.9); POTASSIUM 3.2 mMol/L (3.7-5.1); SODIUM 136 mMol/L (135-145)
--- NOTE | 2016-07-24 15:10 | NUR ---
Significant Event: Patient is alert and oriented x3. VSS and on RA. Has been more wheezy today in the lungs, notified. Has been getting scheduled breathing treatments. Voiding okay. Walked with PT today. R)FA IV, SL. Has not had any nosebleeds today. No Bm yet today, MD notified of this. Lacutlose given x2 as scheduled. Nystatin applied to groin. Aloe applied to bottom. Cooperative with cares.
--- NOTE | 2016-07-25 03:24 | NUR ---
Significant Event: Uneventful night, patient up with walker and stand-by assist. Has expiratory wheezes and wears CPAP at HS. Alert and orientated. Uses water pitcher as a urinal. Lactulose given per order with no BM's yet. Rests throughout the night. No complaints of pain. IV antibiotics continue. Follow up: Continue to monitor.
[2016-07-25 06:18] LABS: BASOPHIL % 0.5 %; EOSINOPHIL # 0.7 K/uL (0.0-0.5); EOSINOPHIL % 10.6 %; HEMATOCRIT 24.7 % (37.0-53.0); IMMATURE GRANULOCYTE % 0.3 %; LYMPHOCYTE # 1.1 K/uL (0.8-4.0); LYMPHOCYTE % 16.5 %; MCH 28.6 pg (27.0-34.0); MCHC 30.8 gm/dL (32.0-36.5); MCV 92.9 fl (83.0-98.0); MONOCYTE # 0.9 K/uL (0.0-1.0); MONOCYTE % 13.6 %; MPV 8.5 fl (9.4-12.4); NEUTROPHIL # (ANC) 3.9 K/uL (1.4-9.0); NEUTROPHIL % 58.5 %; NRBC % 0 /100WBC (0-0.00); PLATELET COUNT 121 K/uL (150-450); RBC 2.66 M/uL (4.00-6.00); RDW-CV 17.1 % (11.9-14.6); WBC 6.6 K/uL (4.0-11.0)
[2016-07-25 06:20] LABS: HEMOGLOBIN 7.6 g/dL (12.0-17.0)
[2016-07-25 06:33] LABS: ALBUMIN 2.3 gm/dL (3.5-5.0); ANION GAP 10.2 (10.0-19.0); BLOOD UREA NITROGEN 16 mg/dL (6-24); CALCIUM 7.6 mg/dL (8.5-10.5); CHLORIDE 100 mMol/L (96-110); CO2 29 mMol/L (22-32); CREATININE 0.9 mg/dL (0.6-1.3); ESTIMATED GFR (MDRD EQUATION) > 60; MAGNESIUM 1.9 mg/dL (1.8-2.6); PHOSPHORUS 3.2 mg/dL (2.5-4.9); POTASSIUM 3.2 mMol/L (3.7-5.1); SODIUM 136 mMol/L (135-145)
--- NOTE | 2016-07-25 11:58 | NUR ---
Attempted to see pt 3 times this morning. Pt refused each time. At last time around 10:40 pt had cPAP on and blankets over head. Pt would not remove blankets and would not get out of bed. Encouraged pt to get up to chair as he had been in bed all morning and pt refused. Pt would not even take blankets off him when speaking with PT. Will attempt at later time Caitlyn Moreno, PT 07/25/16
--- NOTE | 2016-07-25 13:04 | NUR ---
Phone call from Dasha with OT at 1115. She is recommending a OT Home Evaluation if patient is discharging to home. She states patient refused to participate with OT multiple times today. I met with patient at bedside at 1250 and discussed Home Health and Home Occupational Therapy. Patient is in agreement with [facility]. I met with Dr. Ferrera and Gillian Frank and informed them that patient is in agreement with [facility] and therapies. Patient prefers to arrange this through [facility]. Will wait until I know more on his discharge plan and home health care needs before I make the referral. Will continue to follow and offer supports.
--- NOTE | 2016-07-25 17:21 | NUR ---
I HAVE REVIEWED AND AGREE WITH CHARTING DONE BY SN ABHILASH.
--- NOTE | 2016-07-25 17:24 | NUR ---
Significant Event: Patient's IV was noted to be leaking with [address] Ferrera and he said we could place a midline or a PICC if needed. Vascular access nurse came up and started a midline to patient's left upper arm. Dr. Ferrera did change IV clindamycin over to oral but when asked about this and needing the midline IV Dr. Ferrera said that the patient was still in the hospital and needed to have IV access. Patient up with 1 assist and walker to and from the bathroom. Follow up: Continue to monitor.
--- NOTE | 2016-07-26 00:44 | NUR ---
SIGNIFICANT EVENT: Patient alert & oriented, drowsy. Didn't order dinner meal so ate a turkey sandwich from [employer] - regular diet. Hypertensive at times - 189/86 at first assessment. Otherwise VSS on RA. XL BM this shift. L) UA powerglide IV infuses intermittent antibiotics. SBA with walker to ambulate. Cooperative with cares.
[2016-07-26 05:45] LABS: HEMOGLOBIN 7.3 g/dL (12.0-17.0)
[2016-07-26 06:00] LABS: BLOOD UREA NITROGEN 11 mg/dL (6-24); CHLORIDE 102 mMol/L (96-110); CO2 30 mMol/L (22-32); CREATININE 0.7 mg/dL (0.6-1.3); ESTIMATED GFR (MDRD EQUATION) > 60; SODIUM 139 mMol/L (135-145)
[2016-07-26 06:02] LABS: ANION GAP 9.8 (10.0-19.0); CALCIUM 7.4 mg/dL (8.5-10.5); POTASSIUM 2.8 mMol/L (3.7-5.1)
--- NOTE | 2016-07-26 12:55 | NUR ---
A-SCREENED D/T LOS ADMITTED FOR PANCREATITIS AND CELLULITIS TO R)LOWER EXTREMITY. 3+ EDEMA TO BLE. HT: 68 IN. WT: 190.9 KG. BMI: 64.0 LABS: NA 139, K+ 2.8, GLU 101, BUN 11, BACKEND TESTER 0.7, ALB 2.3 MEDS: MORPHINE, MYCOSTATIN, CLEOCIN, CARAFAT, XIFAXON, ENLOSE, ULTRAM, LASIX, ALDACTONE DIET RX: REGULAR DIET. PO INTAKE 75-100% FOR THE MOST PART. REFUSED LUNCH AND DINNER YESTERDAY; DID END UP EATING SANDWICH OUT OF THE [employer] LAST NIGHT. EST NUTR NEEDS: [id number] KCALS (22-25 KCALS/KG IBW) 105-140 GM PROTEIN (1.5-2.0 GM/KG IBW) 1 ML FLUID/KCAL D-NOT AT NUTRITION RISK AT THIS TIME; NO NUTRITION DX IDENTIFIED I-CONTINUE W/CURRENT DIET RX M/E-WILL ASSIST NEEDED
--- NOTE | 2016-07-26 17:24 | NUR ---
Significant Event: Patient up in chair for a short while after he had a shower with DRAG SAWYER's help. Then patient went back to bed and put CPAP back on. Potassium level low this a.m. at 2.8. Orders received to give 40 meq of KCL IV over 4 hours. Patient also ordered for telemetry during potassium infusion. Lab to be drawn after potassium done and results called to Dr. Ferrera. Potassium infusion should be done around 1815. Denies pain. Midline in left anterior upper arm and is patent and has good blood return. Follow up: Continue to monitor.
--- NOTE | 2016-07-27 03:50 | NUR ---
SIGNIFICANT EVENT: Patient alert, oriented but sleepy. Slept most of shift. VSS on RA. CPAP at night. Showered on day shift yesterday. Tele on, no calls. Had 40 mEq IV potassium yesterday on day shift and 40 mEq PO after the 1829 lab results showed potassium at 3.2. BMP and H&H this a.m. Midline to L) UA is SL, intermittent antibiotics. SBA to 1PA. Cooperative with cares.
[2016-07-27 05:30] LABS: HEMATOCRIT 24.6 % (37.0-53.0)
[2016-07-27 05:34] LABS: HEMOGLOBIN 7.7 g/dL (12.0-17.0)
[2016-07-27 05:44] LABS: ANION GAP 10.4 (10.0-19.0); BLOOD UREA NITROGEN 13 mg/dL (6-24); CHLORIDE 104 mMol/L (96-110); CO2 29 mMol/L (22-32); CREATININE 0.8 mg/dL (0.6-1.3); ESTIMATED GFR (MDRD EQUATION) > 60; POTASSIUM 3.4 mMol/L (3.7-5.1); SODIUM 140 mMol/L (135-145)
[2016-07-27 05:45] LABS: CALCIUM 7.4 mg/dL (8.5-10.5)
--- NOTE | 2016-07-27 12:15 | NUR ---
Spoke to Gillian Frank APRN with hospitalist and she thinks patient will discharge to home today. Plan for home health care to monitor the leg cellulitis, labs, and PT/OT consults and treatment. I phoned Bran at [facility] at [phone] and faxed the patient's information to her at [phone] per her request. Bran will check patient's benefits and make sure he has Home Health Care benefits. She will contact patient to make arrangements for home health care to start. Patient notified and agrees with plan.
--- NOTE | 2016-07-27 15:31 | NUR ---
Significant Event: Patient is alert and oriented x3. Morphine PO given x1, relief noted this am. Slept on and off most of the day. 40 of KCL given PO x1. May have nose spray bedside as needed. On PO antibiotics. L)Upper midline, SL. Possibly going home yet today. Cooperative with cares.
[2016-07-27] MEDS ORDERED: CLEOCIN150 MG PO (16:21)
[2016-07-27] MEDS ORDERED: HUMIBID LA (MU600 MG PO (16:22)
[2016-07-27] MEDS ORDERED: MYCOSTATIN CR15 GM TOP (16:24)
[2016-07-27] MEDS ORDERED: XIFAXAN550 MG PO (16:25)
[2016-07-27] MEDS ORDERED: FLORASTOR250 MG PO (16:26)
[2016-07-27] MEDS ORDERED: [UNRECOGNIZED DRUG - OTHER] PO (16:27)
--- NOTE | 2016-07-27 16:49 | NUR ---
D: ORDERS RECEIVED FOR THE PATIENT TO BE DISCHARGED TO HOME TODAY. I: DISMISSAL INSTRUCTIONS WERE PREPARED AND REVIEWED WITH THE PATIENT AND FAMILY VIRTUALLY. THE FOLLOWING INFORMATION WAS DISCUSSED INCLUDING [employer] TEACHING SHEETS PROVIDED: DISCHARGE INSTRUCTIONS FOR CELLULITIS, DISCHARGE INSTRUCTIONS FOR HYPOKALEMIA, CLINDAMYCIN, HUMABID, NYSTATIN, RAFAXIMIN, FLORASTOR, CARFATE AND PREVENTING DVT. REVIEWED FOLLOW UP APPOINTMENT WITH DR. BOOTH ON Monday08/01/16 WITH LABS THAT DAY. REVIEWED ALL NEW PRESCRIPTIONS AND NEED FOR THE PATIENT TO TAKE THEM TO HIS PHARMACY TO BE FILLED. R: THE PATIENT AND FAMILY BOTH VERBALIZED UNDERSTANDING OF THE DISMISSAL EDUCATION AT THE TIME OF TEACHING WITH NO FURTHER QUESTIONS. P: THE ABOVE INFORMATION WAS SHARED WITH THE PRIMARY NURSE AND CHARGE NURSE THAT THE PATIENT'S DISMISSAL EDUCATION WAS COMPLETED. THE PATIENT IS READY FOR DISCHARGE TO THE FRONT DOOR VIA WHEEL CHAIR BY NURSING STAFF.
[2016-09-21] MEDS ORDERED: CPAP INH (10:24)
[2016-09-21] MEDS ORDERED: DUONEB INH (10:58)
[2016-11-08] MEDS ORDERED: OSCAL500 MG PO (09:23)
[2016-11-08] MEDS ORDERED: MAG-OX-400(241400 MG PO (09:23)
[2016-11-08] MEDS ORDERED: PROZAC10 MG PO (09:24)
[2016-11-08] MEDS ORDERED: RISPERDAL0.5 MG PO (09:39)
[2016-11-11] MEDS ORDERED: CARAFATE1 GM PO (09:04)
== END 2016-07-27 17:34 | disposition disaster alternative care site (69) | DRG 872 ==
LOC: GMED 13:44 → GMSU 16:06
PROVIDERS: Emergency Medicine; Family Medicine; Nurse Practitioner Family; ADMIT Hospitalist
DX: A41.9 Sepsis, unspecified organism (principal); Z68.44 Body mass index [BMI] 60.0-69.9, adult; K92.2 Gastrointestinal hemorrhage, unspecified; D62 Acute posthemorrhagic anemia; K74.60 Unspecified cirrhosis of liver; E66.01 Morbid (severe) obesity due to excess calories; K72.90 Hepatic failure, unspecified without coma; L03.115 Cellulitis of right lower limb; I10 Essential (primary) hypertension; E87.6 Hypokalemia; B19.20 Unspecified viral hepatitis C without hepatic coma; G47.33 Obstructive sleep apnea (adult) (pediatric); F32.9 Major depressive disorder, single episode, unspecified; F41.9 Anxiety disorder, unspecified; R09.81 Nasal congestion; I25.10 Atherosclerotic heart disease of native coronary artery without angina pectoris; J44.9 Chronic obstructive pulmonary disease, unspecified
CPT/HCPCS: C1751; J0696; J1650; J1885; J2270; J3480; J7030; J7050

== ENCOUNTER 2016-08-26 10:12 | Inpatient (IN) | payer MEDICAID ==
[~2016-08-26] VITALS: Ht 172.7 cm; Wt 177.0 kg
--- NOTE | ~2016-08-26 | PN ---
PATIENT'S NAME: JM GAXIOLA [facility] AGE: 50 Y [address] ROOM: [address] [address] LOCATION: [facility] [place] ADMIT DATE: 08/26/2016 Progress Notes DISCHARGE DATE: 08/28/2016 FAMILY PHYSICIAN: Lauri Cai MD ATTENDING PHYSICIAN: Serafin BUSTILLO DATE OF SERVICE: 08/27/2016 SUBJECTIVE: He is feeling much better today. There is no vomiting, no nausea. He is walking around and his appetite has improved. OBJECTIVE: VITAL SIGNS: His blood pressure is 124/71, pulse 71 per minute, temperature is 98.4 degrees Fahrenheit. He had an ultrasound of abdomen yesterday and there was not enough fluid to aspirate. Therefore, we do not have any further information for possible SBP. RECOMMENDATION: Continue rifaximin and watch for hepatic encephalopathy. He is feeling better. Please let us know if further followup is needed from GI. We appreciate sharing care of this patient. MD ROXANNE FOSTER/kaila /[id number] d: 08/27/16 1253 t: 08/30/16 1514, PROGRESS NOTES
--- NOTE | ~2016-08-26 | CON ---
PATIENT'S NAME: JM PEDRAZA [facility] AGE: 50 Y [address] ROOM: [place] [address] LOCATION: [facility] [place] ADMIT DATE: 08/26/2016 Consultation DISCHARGE DATE: FAMILY PHYSICIAN: OLEG BOOTH MD ATTENDING PHYSICIAN: Serafin CHACKO REASON FOR CONSULTATION: This is a 50-year-old male who was been admitted through the emergency room with continuing history of vomiting for the last 2 days. HISTORY OF PRESENTING ILLNESS: Mr. Pedraza is known to have liver cirrhosis secondary to alcoholic liver disease, hepatitis C, and obesity. He has had several admissions in the hospital with repeated history of alcohol-related admission. Present admission is mitigated by his recurrent vomiting, and he claims that he has not been able to keep any food down for the last 2 days. He presented to the emergency room yesterday and after IV hydration, he was sent home, but came back today with same symptoms. He also claims that he has headache and not relieved by Tylenol. At the time of examination, he does not have headache and he is feeling quite comfortable in bed. He denies any hematemesis, melena, hematochezia, diarrhea, or constipation. ALLERGIES: NO KNOWN DRUG ALLERGIES. MEDICATIONS: As per MAR. PAST MEDICAL HISTORY: History of colonic polyps, anemia, and liver cirrhosis with history of alcoholic liver disease, although he says that he has not been drinking heavily for the last 4 years, but he had a shot on last Monday. He has a history of cardiac murmurs. PAST SURGICAL HISTORY: He had a shoulder surgery. SOCIAL HISTORY: Denies smoking, but he has been alcoholic in the past. PHYSICAL EXAMINATION: GENERAL: Obese male who is comfortable in bed. VITAL SIGNS: Blood pressure is 141/77, pulse is 88 per minute, temperature is 97.9 degrees Fahrenheit, and respiratory rate is 18 per minute. HEENT: Head: Normocephalic, atraumatic. Eyes are anicteric. NECK: Supple. No lymphadenopathy. PATIENT'S NAME: JM PEDRAZA [facility] AGE: 50 Y [address] ROOM: [place] [address] LOCATION: [facility] [place] ADMIT DATE: 08/26/2016 Consultation DISCHARGE DATE: FAMILY PHYSICIAN: OLEG BOOTH MD ATTENDING PHYSICIAN: Serafin CHACKO CHEST: Clear to palpation, percussion, auscultation. ABDOMEN: Obese, is nontender. I cannot feel hepatosplenomegaly because of obesity. He may have ascites, but examination cannot be with certainty. He has scratch markings on his abdomen, which is from itching. NEUROLOGICAL: He is quite oriented to time, place, and person. Pleasant. Does not have any overt signs of hepatic encephalopathy. Cranial nerves 2-12 are intact. Motor and sensory systems intact. There are no lateralizing signs. Claims that he is very weak and therefore he is bed-bound. LABORATORY DATA: Hemoglobin is 9.2, hematocrit is 29.2, and platelets 109. PT is 15.8, INR is 1.5. His pCO2 is 35, PO2 is 110, HCO3 is 24. Lactate is 1.8. Sodium is 143, potassium is 3.6, chloride is 105, glucose is 110, and calcium is 7.8. Albumin is 2.4. Total bilirubin is 1.8, direct bilirubin is 1, AST is 142, ALT is 65. Serum iron is 15, TIBC is 391. Serum ammonia level is 84. GGT is 256. CRP is 6.3. TSH is 37.5. ASSESSMENT: 1. Mr. Pedraza is a 50-year-old male who has recurrent admissions due to his liver cirrhosis, this time it was mitigated by recurrent vomiting and feeling weak. 2. There is a suspicion that he may have spontaneous bacterial peritonitis which may have caused the current symptoms. 3. He has been drinking alcohol the last week, which may have aggravated his gastritis and alcohol-related exacerbation of his liver cirrhosis. RECOMMENDATION: 1. As discussed with Dr. Chacko, we should get an ultrasound of abdomen to confirm SBP with fluid cultures, seldom fluid, and to evaluate for SAAG. 2. We should treat him with antibiotics if SBP is determined and continue symptomatic treatment with Zofran, proton pump inhibitors, and antacids. Should his vomiting continue, he may need endoscopy for further evaluation. His last endoscopy was done by Dr. Darden, this was in November of 2010, which was reportedly normal. We appreciate sharing care of this patient. MD ROXANNE FOSTER/kaila PATIENT'S NAME: JM PEDRAZA [facility] AGE: 50 Y [address] ROOM: [place] [address] LOCATION: [facility] [place] ADMIT DATE: 08/26/2016 Consultation DISCHARGE DATE: FAMILY PHYSICIAN: OLEG BOOTH MD ATTENDING PHYSICIAN: Serafin CHACKO /[id number] CC: Oleg Booth MD d: 08/26/16 1938 t: 08/27/16 1126, CONSULTATION REPORT
--- NOTE | ~2016-08-26 | HP ---
PATIENT'S NAME: JM GAXIOLA [facility] AGE: 50 Y [address] ROOM: [place] [address] LOCATION: [facility] [place] ADMIT DATE: 08/26/2016 History & Physical DISCHARGE DATE: FAMILY PHYSICIAN: OLEG BOOTH MD ATTENDING PHYSICIAN: Serafin BUSTILLO DATE OF SERVICE: CHIEF COMPLAINT: Abdominal pain. HISTORY OF PRESENT ILLNESS: The patient is a 50-year-old gentleman with past medical history of liver cirrhosis secondary to hepatitis C/alcohol use, obesity, hypertension, hypothyroidism, and iron deficiency anemia, who presents here with abdominal pain. The patient reports that for the past 2 days, he has been feeling subjective fever and chills, and abdominal pain associated with nausea, vomiting. He reports his abdominal pain is around his epigastric and right upper quadrant. Reports the pain as aching and sharp and constant and rates the pain currently 6/10. He reports that he also has associated symptom of nausea and vomiting. He reports that he had multiple nausea and vomiting in the past 2 days. He denies any blood in his vomit. His pain is nonradiating. The patient also reports of a few day history of productive cough. He reports that his sputum color is white. He denies any shortness of breath. The patient denies any sick contact. The patient also denies chest pain, shortness of breath, diarrhea, weight gain, vision change, and bloody stool. Of note, the patient was seen in the emergency department for the same complaint yesterday and was given IV fluids and Zofran with some improvement of symptoms. He was discharged home to follow up with Dr. Booth, his PCP physician. However, the patient presented with the same symptom at Dr. Booth's office and was sent here for further investigation as the patient failed outpatient treatment. MEDICAL HISTORY: 1. Liver cirrhosis. 2. Anemia. 3. Hepatitis C. 4. History of alcohol use. 5. Obstructive sleep apnea. 6. Hypertension. 7. Hypothyroidism. SURGICAL HISTORY: 1. Back surgery. PATIENT'S NAME: JM GAXIOLA [facility] AGE: 50 Y [address] ROOM: [place] [address] LOCATION: [facility] [place] ADMIT DATE: 08/26/2016 History & Physical DISCHARGE DATE: FAMILY PHYSICIAN: OLEG BOOTH MD ATTENDING PHYSICIAN: Serafin BUSTILLO 2. Shoulder surgery. FAMILY HISTORY: Dad had a CVA and mother had leukemia. SOCIAL HISTORY: The patient lives with his daughter. MEDICATIONS: Please see MAR. REVIEW OF SYSTEMS: All systems have been reviewed and are negative except for what I mentioned in the HPI. PHYSICAL EXAMINATION: VITAL SIGNS: Blood pressure 141/77, temperature of 97.9, heart rate of 88, saturating 92% on room air. Respiratory rate of 18. GENERAL APPEARANCE: The patient is alert and awake. Does not appear toxic. HEAD: Normocephalic and atraumatic. EYES: Sclerae nonicteric. Extraocular muscle intact. NOSE: No nasal discharge. EAR: No ear discharge. ORAL CAVITY: Moist oral cavity. No extract noted in mucous membranes. NECK: Supple. No lymphedema noted. CHEST: Clear to auscultation bilaterally. HEART: Regular rate and rhythm. The patient has grade 1 systolic murmur heard on second intercostal right. ABDOMEN: Mild epigastric tenderness and mild right upper quadrant tenderness on palpation. No rebound. No guarding. Bowel sounds active. The patient also have excoriation in his abdomen. Bowel sounds present. Unable to really assess fluid shift due to the patient's body habitus. SKIN: Excoriation in his abdomen and venous stasis changes in bilateral lower extremity. MUSCULOSKELETAL: Range of motion intact. No obvious effusion noted. [employer] INTER[employer]: The patient alert and oriented. Motor and sensory grossly intact. LABS: From yesterday in the emergency department shows sodium 143, potassium of 3.6, chloride of 105. CO2 of 31, BUN of 13, creatinine of 0.8. Blood glucose of 116, total bilirubin of 1.8, hemoglobin 9.2, white blood cell count of 6.1, and platelets of 109. Lab from yesterday also shows positive H. pylori IgG. PATIENT'S NAME: JM GAXIOLA [facility] AGE: 50 Y [address] ROOM: [address] [address] LOCATION: [facility] [place] ADMIT DATE: 08/26/2016 History & Physical DISCHARGE DATE: FAMILY PHYSICIAN: OLEG BOOTH MD ATTENDING PHYSICIAN: KENY,Dagmawe ASSESSMENT AND PLAN: 1. Abdominal pain. The patient with a past medical history significant for liver cirrhosis, who presents here with abdominal pain, nausea, vomiting, and subjective fever and chills. On initial evaluation, the patient has mild epigastric and right upper quadrant tenderness. Unable to really assess sites due to patient body habitus. Lab from yesterday does not show any leukocytosis. However, due to patient's liver cirrhosis and presenting with abdominal pain, will empirically treat for spontaneous bacterial peritonitis. We will acquire blood culture x2. We will acquire ultrasound therapeutic and diagnostic for paracentesis. Peritoneal fluid to be sent for cell with differential chemistry culture and sensitivity and Gram stain. We will start the patient on cefepime 2 g IV t.i.d. We will also get ultrasound of his right upper quadrant to assess for cholecystitis. The patient also have positive IgG H. pylori. Unfortunately, this does not help in terms of diagnosing if the patient has current H. pylori. Thus, we will acquire stool antigen. For now we will hold any PPI or H2 dante. Discussed case with Dr. Rizzo with GI the patient will be followed by Dr. Rizzo during his stay. 2. Dehydration, secondary to nausea and vomiting. We will hold the patient's diuretic medication for now. We will start the patient on gentle IV hydration with 0.45 normal saline that was 75 mL an hour. 3. Nausea and vomiting, etiology most likely secondary to abdominal pain. Gentle hydration and Zofran. We will treat underlying etiology. 4. Iron deficient anemia. The patient has a history of EGD according to notes per GI on last admission. Apparently, the patient has had EGD done on April and shows gastric antrum ectasia and polyp. However, today, the patient lab shows positive H. pylori IgG antibody. We will acquire stool antigen, GI on board. We will acquire a hemoglobin today. We will hold Protonix or H2 dante for now. We will also hold blood thinners and also anti-platelet. 5. Hypokalemia. We will supplement potassium. 6. Obstructive sleep apnea. Continue CPAP. 7. Hypothyroidism. We will continue supplement of Synthroid. 8. History of hepatitis C. to follow up with GI for treatment as an outpatient. 9. Morbid obesity, ongoing. 10. Liver cirrhosis, etiology secondary to hepatitis C and also component of alcohol use might also play a role. We will hold the diuretics for now due to recent history of nausea, vomiting, and dehydration. Currently on gentle hydration. We will start the patient on low-salt diet. To restart diuretics when patient nausea and vomiting improves. I have personally reviewed the patient's medical record including but not limited to, blood work and radiology report. Total time spent with the patient is greater than 70 minutes, more than 50% of PATIENT'S NAME: JM GAXIOLA [facility] AGE: 50 Y [address] ROOM: [address] [address] LOCATION: [facility] [place] ADMIT DATE: 08/26/2016 History & Physical DISCHARGE DATE: FAMILY PHYSICIAN: OLEG BOOTH MD ATTENDING PHYSICIAN: Serafin BUSTILLO the time is spent in direct patient care and patient consultation. Case was reviewed with the patient and nursing staff. All questions were answered to patient's satisfaction. Case was reviewed with GI. We will admit the patient as an inpatient as patient failed outpatient treatment. KENY VOGEL MD AD/modl /[id number] D: 412 T: 5 HISTORY & PHYSICAL
--- NOTE | ~2016-08-26 | DS ---
PATIENT'S NAME: JM GAXIOLA [facility] AGE: 50 Y [address] ROOM: [address] [address] LOCATION: [facility] [place] ADMIT DATE: 08/26/2016 Discharge Summary DISCHARGE DATE: 08/28/2016 FAMILY PHYSICIAN: Lauri Cai MD ATTENDING PHYSICIAN: Ginna Betancourt PRIMARY DIAGNOSES: 1. Abdominal pain. 2. Nausea and vomiting. 3. Chronic conditions include liver cirrhosis from hepatitis C and alcoholism. 4. Morbid obesity. 5. Obstructive sleep apnea. 6. Chronic anemia. PRINCIPAL PROCEDURES: Done for the patient, none was indicated. LABORATORY DATA: WBC was stable throughout hospital stay, upon discharge was 6.0; H and H on admission was 7.8/25.5, prior to discharge was 8.4/27.5 without any blood transfusion; platelet on admission was 189, prior to discharge was 101. Creatinine was stable throughout the hospital stay, at 0.6 upon discharge; potassium on admission was 3.2, prior to discharge was 3.9; sodium was stable throughout the hospital stay, at 142 upon discharge; BUN was 14; and bicarb was also stable throughout the hospital stay. Liver function tests on admission remained stable. INR was 1.4. Procalcitonin was 0.07. MICROBIOLOGY: Blood culture x2 sets, no growth. Sputum culture; normal respiratory loretta, light growth. RADIOLOGY: Abdominal ultrasound, limited, reported as no free fluid identified at the abdomen on ultrasound imaging. Chest x-ray, normal 2-view chest. HOSPITAL COURSE: For history of present illness, please take a look at the H and P which was done by Dr. Chacko. Given the patient's presentation of abdominal pain with his prior history of liver cirrhosis from hepatitis C and also chronic alcoholism, there was concern for probably a spontaneous bacterial peritonitis. So, the patient was empirically started on cefepime and to be evaluated for spontaneous bacterial peritonitis; however, ultrasound which was done for diagnostic paracentesis did not yield any ascites, so this was canceled. By the next day of his hospital stay, the patient's nausea and vomiting had resolved and his abdominal pain as well had resolved though he was still continued on antibiotics up until discharge. He did also get a GI consult and after the patient was evaluated by GI, no intervention was recommended. By the next day of the patient's hospital stay, GI signed off PATIENT'S NAME: JM GAXIOLA [facility] AGE: 50 Y [address] ROOM: [address] [address] LOCATION: [facility] [place] ADMIT DATE: 08/26/2016 Discharge Summary DISCHARGE DATE: 08/28/2016 FAMILY PHYSICIAN: Lauri Cai MD ATTENDING PHYSICIAN: Ginna Betancourt the case as the patient essentially was clinically stable and his symptoms had resolved. Given the patient's presentation of nausea and vomiting, his diuretics were held throughout his was hospital stay and plan was for the patient to restart this upon discharge. The patient was observed on the next day of hospital stay and by the second day of his hospital stay, vital signs were stable, he remained clinically stable and was discharged home. MEDICATIONS: Upon discharge include: 1. Lactulose 30 mL p.o. every 8 hours. 2. Synthroid 50 mcg p.o. daily. 3. Potassium chloride 20 mEq p.o. daily. 4. Rifaximin 550 mg p.o. twice daily. 5. Tylenol 1 g p.o. q.6 hours p.r.n. 6. ProAir 2 puffs every 4 hours p.r.n. 7. Lasix 40 mg p.o. daily. 8. Zaroxolyn 2.5 mg p.o. daily. 9. Protonix 40 mg p.o. twice daily. 10. Aldactone 12.5 mg p.o. daily. 11. Tramadol 1 tablet p.o. q.4 hours p.r.n. 12. Nitrostat 0.4 mg sublingual every 5 minutes p.r.n. 13. Saline nasal spray. MD CONY REYNOLDS/kaila /[id number] d: 08/28/16 1817 t: 09/04/16 1611, DISCHARGE SUMMARY
[~2016-08-26 10:12] MED LIST changes: +CLEOCIN150 MG PO; +FLORASTOR250 MG PO; +HUMIBID LA (MU600 MG PO; +MYCOSTATIN CR15 GM TOP; +POTASSIUM CHLO20 ME2 PO; +SALINE NASAL SP88 ML NOSE; +TYLENOL325 MG PO; +[UNRECOGNIZED DRUG - OTHER] PO
--- NOTE | 2016-08-26 12:04 | NUR ---
Patient is 50 yo male admitted this morning from the clinic where he was seen for not feeling well with abdominal pain. pt states the pain has been there for about 3-4 months. he states he has had nausea and vomiting for a week or so. states he loves chicken broth and it does not come up, but states solid foods will come back up. patient lives w/his , although he states she will be his ex- soon. his daughter also lives with him. patient does not work. Patient is having complications from previous right shoulder surgery and is needing it repaired. he has seen Dr. Bauer and he has told him he needs to lose weight before he will perform surgery. pt has a therapist coming to the house to help with exercises, he uses a spirometer to help w/lung function and has lost 110# since March. Saline lock is started in left hand without diff. pt jimenez well. Education is given as documented. patient denies questions. Requests Advanced directive booklet, given with directions for use, pt denies questions. pt refuses pneumatics at this time. states he just can't stand them on. fall bracelet is on. call light is within reach at this time. pt does c/o being very cold. upon admission, temp was 97.9. at the end of the interview, pt states he is starting to feel warmer, temp is 98.0. Patient denies further needs at this time. Report is given to FABRICE Cabrales.
[2016-08-26 15:15] LABS: BASOPHIL % 0.5 %; EOSINOPHIL # 0.4 K/uL (0.0-0.5); EOSINOPHIL % 9.3 %; HEMATOCRIT 25.5 % (37.0-53.0); IMMATURE GRANULOCYTE % 0.2 %; LYMPHOCYTE # 0.8 K/uL (0.8-4.0); LYMPHOCYTE % 19.2 %; MCH 28.7 pg (27.0-34.0); MCHC 30.6 gm/dL (32.0-36.5); MCV 93.8 fl (83.0-98.0); MONOCYTE # 0.4 K/uL (0.0-1.0); MONOCYTE % 9.1 %; MPV 10.2 fl (9.4-12.4); NEUTROPHIL # (ANC) 2.5 K/uL (1.4-9.0); NEUTROPHIL % 61.7 %; NRBC % 0 /100WBC (0-0.00); PLATELET COUNT 89 K/uL (150-450); RBC 2.72 M/uL (4.00-6.00); RDW-CV 21.7 % (11.9-14.6); WBC 4.1 K/uL (4.0-11.0)
[2016-08-26 15:17] LABS: HEMOGLOBIN 7.8 g/dL (12.0-17.0)
[2016-08-26 15:24] LABS: PROTIME 14.7 SECONDS (9.8-11.4)
[2016-08-26 15:27] LABS: INR - (THERAPEUTIC) 1.4 (0.92-1.07)
[2016-08-26 15:32] LABS: ALBUMIN 2.2 gm/dL (3.5-5.0); ALK PHOS 108 IU/L (33-138); ALT 59 IU/L (12-78); ANION GAP 11.2 (10.0-19.0); AST 133 IU/L (10-40); BLOOD UREA NITROGEN 13 mg/dL (6-24); CALCIUM 7.6 mg/dL (8.5-10.5); CHLORIDE 105 mMol/L (96-110); CO2 27 mMol/L (22-32); CREATININE 0.7 mg/dL (0.6-1.3); ESTIMATED GFR (MDRD EQUATION) > 60; POTASSIUM 3.2 mMol/L (3.7-5.1); SODIUM 140 mMol/L (135-145); TOTAL BILIRUBIN 2.1 mg/dL (0.0-1.5); TOTAL PROTEIN 5.8 g/dL (6.0-8.4)
--- NOTE | 2016-08-26 18:01 | NUR ---
AAOx3. Cooperative with cares. Up w/one assist, GB, and cane. No complaint of abdominal pain. Gave Tylenol 500mg PO x1 for c/o headache. VSS, afebrile, denies, N/V, diarrhea. U/S of abdomen done. Paracentesis cancelled; not enough fluid. Need stool sample for labs and sputum for Cx. IVF @75 to LH.
--- NOTE | 2016-08-27 07:25 | NUR ---
Significant Event:pt is a/o x3. pt is a 1 assist w/ cane and gaitbelt. pt has iv to l hand w/ 1/2 ns @ 75. pt c/o pain to head, tylenol 500mg given x2. need sputum sample. vss on ra. pt wears c-pap @ noc. Follow up:
[2016-08-27 13:23] LABS: BASOPHIL % 0.8 %; EOSINOPHIL # 0.5 K/uL (0.0-0.5); EOSINOPHIL % 9.7 %; HEMATOCRIT 26.7 % (37.0-53.0); HEMOGLOBIN 8.3 g/dL (12.0-17.0); IMMATURE GRANULOCYTE % 0.2 %; LYMPHOCYTE # 0.7 K/uL (0.8-4.0); LYMPHOCYTE % 14.8 %; MCH 29.4 pg (27.0-34.0); MCHC 31.1 gm/dL (32.0-36.5); MCV 94.7 fl (83.0-98.0); MONOCYTE # 0.4 K/uL (0.0-1.0); MONOCYTE % 8.7 %; MPV 9.2 fl (9.4-12.4); NEUTROPHIL # (ANC) 3.1 K/uL (1.4-9.0); NEUTROPHIL % 65.8 %; NRBC % 0 /100WBC (0-0.00); PLATELET COUNT 89 K/uL (150-450); RBC 2.82 M/uL (4.00-6.00); RDW-CV 21.6 % (11.9-14.6); WBC 4.7 K/uL (4.0-11.0)
[2016-08-27 13:36] LABS: ANION GAP 13.8 (10.0-19.0); BLOOD UREA NITROGEN 13 mg/dL (6-24); CALCIUM 7.8 mg/dL (8.5-10.5); CHLORIDE 106 mMol/L (96-110); CO2 26 mMol/L (22-32); CREATININE 0.7 mg/dL (0.6-1.3); ESTIMATED GFR (MDRD EQUATION) > 60; MAGNESIUM 2.2 mg/dL (1.8-2.6); POTASSIUM 3.8 mMol/L (3.7-5.1); SODIUM 142 mMol/L (135-145)
--- NOTE | 2016-08-27 19:09 | NUR ---
Significant Event: Alert and oriented. Vitals stable. Saline locked. Good appetite. Showered. Sputum culture sent to lab. Wears CPAP at HS. Afternoon labs called to MD. Up with standby assist with cane. Scheduled lactulose. Follow Up: Continue to monitor.
--- NOTE | 2016-08-27 19:18 | NUR ---
I HAVE REVIEWED AND AGREE WITH CHARTING COMPLETED BY [facility] STUDENT ARGENIS POPE FROM [id number] SARAH AVINA
[2016-08-28 04:37] LABS: BASOPHIL % 0.7 %; EOSINOPHIL # 0.5 K/uL (0.0-0.5); EOSINOPHIL % 8.3 %; HEMATOCRIT 27.5 % (37.0-53.0); HEMOGLOBIN 8.4 g/dL (12.0-17.0); IMMATURE GRANULOCYTE % 0.3 %; LYMPHOCYTE # 0.9 K/uL (0.8-4.0); LYMPHOCYTE % 15.6 %; MCH 28.8 pg (27.0-34.0); MCHC 30.5 gm/dL (32.0-36.5); MCV 94.2 fl (83.0-98.0); MONOCYTE # 0.4 K/uL (0.0-1.0); MONOCYTE % 7.3 %; MPV 9.2 fl (9.4-12.4); NEUTROPHIL # (ANC) 4.1 K/uL (1.4-9.0); NEUTROPHIL % 67.8 %; NRBC % 0 /100WBC (0-0.00); PLATELET COUNT 101 K/uL (150-450); RBC 2.92 M/uL (4.00-6.00); RDW-CV 21.9 % (11.9-14.6)
[2016-08-28 04:56] LABS: ANION GAP 8.9 (10.0-19.0); BLOOD UREA NITROGEN 14 mg/dL (6-24); CALCIUM 7.7 mg/dL (8.5-10.5); CHLORIDE 108 mMol/L (96-110); CO2 29 mMol/L (22-32); CREATININE 0.6 mg/dL (0.6-1.3); ESTIMATED GFR (MDRD EQUATION) > 60; MAGNESIUM 2.1 mg/dL (1.8-2.6); POTASSIUM 3.9 mMol/L (3.7-5.1); SODIUM 142 mMol/L (135-145)
--- NOTE | 2016-08-28 04:56 | NUR ---
Significant Event:pt is a/o x3. pt was awake for part of gayatri night. iv to l hand is sl with int iv abx. pt is a sba w/ cane. pt wears c-pap when sleeping. pt up walking in hallways. possible discharge home today. Follow up:possible discharge home today.
[2016-09-21] MEDS ORDERED: CPAP INH (10:24)
[2016-09-21] MEDS ORDERED: DUONEB INH (10:58)
[2016-11-08] MEDS ORDERED: OSCAL500 MG PO (09:23)
[2016-11-08] MEDS ORDERED: MAG-OX-400(241400 MG PO (09:23)
[2016-11-08] MEDS ORDERED: PROZAC10 MG PO (09:24)
[2016-11-08] MEDS ORDERED: RISPERDAL0.5 MG PO (09:39)
[2016-11-11] MEDS ORDERED: CARAFATE1 GM PO (09:04)
== END 2016-08-28 12:40 | disposition disaster alternative care site (69) | DRG 392 ==
LOC: GMSU 10:12 → EDSTATUS 10:30 → GMSU 08-28 12:40
PROVIDERS: Hospitalist; ADMIT Internal Medicine
DX: R10.9 Unspecified abdominal pain (principal); K70.30 Alcoholic cirrhosis of liver without ascites; E66.01 Morbid (severe) obesity due to excess calories; D50.9 Iron deficiency anemia, unspecified; I10 Essential (primary) hypertension; R11.2 Nausea with vomiting, unspecified; B18.2 Chronic viral hepatitis C; G47.33 Obstructive sleep apnea (adult) (pediatric); E87.6 Hypokalemia; E03.9 Hypothyroidism, unspecified; E86.0 Dehydration
CPT/HCPCS: J0692; J2270; J2405; J7030; J7040

== ENCOUNTER 2016-09-08 17:00 | Emergency (ER) | payer MEDICAID ==
--- NOTE | ~2016-09-08 | ER ---
[facility] AGE: 50 Y [address] ROOM: [place] [address] LOCATION: [facility] ADMIT DATE: 09/08/2016 ER/Outpatient Report DISCHARGE DATE: 09/08/2016 FAMILY PHYSICIAN: Lauri Cai MD ATTENDING PHYSICIAN: Priscilla Curtis Time of Arrival: 1700 hours. Time of Evaluation: 1715 hours. CHIEF COMPLAINT: Trouble breathing. HISTORY OF PRESENT ILLNESS: This is a 50-year-old male well known to us here in the emergency room. He states he has been feeling short of breath in the last 12 hours. The patient states that he has had a dry cough. He has been using his breathing treatments at home and last time he used it was this morning. He states he has not been running any fevers, no chills. He has been feeling very fatigued as well. He denies any chest pain or heart palpitation. The patient states that he did suffer ground-level fall approximately 5 days ago in which he tripped over a twig in his yard. He states he hit his head and also injured his right shoulder during that fall. He denies any abdominal pain at this time. No other problems. He states that he missed his appointment to see his primary care physician for followup, as his could not drive him to his appointment. ALLERGIES: NO KNOWN ALLERGIES. MEDICATIONS: Please see medication list and nurse's notes. PAST MEDICAL HISTORY: 1. Hepatitis C. 2. Polyps. 3. Hypothyroidism. 4. Edema. 5. Anemia. 6. Liver cirrhosis. 7. Heart murmur. PAST SURGERIES: Shoulder surgery. SOCIAL HISTORY: PATIENT'S NAME: JM GAXIOLA [facility] AGE: 50 Y [address] ROOM: [place] [address] LOCATION: [facility] ADMIT DATE: 09/08/2016 ER/Outpatient Report DISCHARGE DATE: 09/08/2016 FAMILY PHYSICIAN: Lauri Cai MD ATTENDING PHYSICIAN: Priscilla Curtis He denies smoking or drug use. REVIEW OF SYSTEMS: All systems were reviewed and were negative with the exception of those discussed in the HPI. PHYSICAL EXAMINATION: VITAL SIGNS: Weight 187.7 kg taken, blood pressure is 124/57, pulse 65, respirations 18, temperature 98.1 degrees tympanically, saturations 97% on room air. [place] Coma Score is 15. GENERAL: Alert, morbidly obese male, in no obvious distress. HEENT: Head: Normocephalic. EYES: Pupils are equal and reactive to light. He does display moist mucous membranes. LUNGS: Diminished throughout. He does have an audible wheeze noted in his upper airway, but does have clear lung sounds in the bases. ABDOMEN: Soft, it is obese, it is not tender to palpation. HEART: Regular rate and rhythm. He does have a systolic murmur noted. SKIN: No new lesions were noted to his skin. MUSCULOSKELETAL: He does have good range of motion of all of his extremities. NEUROLOGIC: Cranial nerves 2 through 12 grossly intact. Gait is steady with the use of his cane. LABORATORY DATA: CBC: White count is 4.9, hemoglobin is 9.1, platelets 88, ANC is 3.2, INR is 1.39. CMS: Potassium is 3.3, glucose was 119, BUN 11, creatinine 0.8, alkaline phosphatase is 138, AST is 137, ALT is 68. Estimated GFR is greater than 60. Magnesium is 2.0. CPK is 154, CK-MB is 1.6. Troponin I is less than 0.040. TSH is 71.1. D-dimer is 3.89. EKG shows sinus rhythm. Chest x- ray was negative for any infiltrate. We did do a PE CT due to his shortness of breath history and elevated D-dimer, which shows no pulmonary emboli, no lung consolidation. He does have cirrhosis with evidence for portal hypertension. His CT scan of his head was negative and reported by Radiology and x-ray of his right shoulder shows no obvious fracture. This was reviewed by myself as well as an over-read by Radiology. IMPRESSION: 1. Shortness of breath. 2. Hypothyroidism. 3. Shoulder injury from ground-level fall. 4. Head injury from ground-level fall. ASSESSMENT AND PLAN: We did give the patient a DuoNeb breathing treatment here in the emergency room, which did improve his shortness of breath. I did give the patient the PATIENT'S NAME: DEON [facility]AX[facility]OL[facility]EN F[facility] AGE: 50 Y [address] ROOM: [place], [place] [address] LOCATION: [facility] ADMIT DATE: 09/08/2016 ER/Outpatient Report DISCHARGE DATE: 09/08/2016 FAMILY PHYSICIAN: Lauri Cai MD ATTENDING PHYSICIAN: Priscilla Curtis option of staying in the hospital or going home and the patient states that he does not want to stay in the hospital. I advised him to monitor his symptoms closely. He needs to ice any sore areas. Continue his breathing treatments at home. I would like him to follow up with his primary care physician tomorrow in regard to his thyroid medications as well. The patient does promise me that he will follow up with his primary care physician tomorrow. He understands and agrees with care. JALYN HAWK PA-C FOR MD IMMANUEL SANDOVALJ/kaila /[id number] d: t: 09/17/16 1613, OUTPATIENT REPORT
[2016-09-08 17:39] LABS: BASOPHIL % 0.4 %; EOSINOPHIL # 0.4 K/uL (0.0-0.5); EOSINOPHIL % 7.8 %; HEMATOCRIT 28.3 % (37.0-53.0); HEMOGLOBIN 9.1 g/dL (12.0-17.0); IMMATURE GRANULOCYTE % 0.2 %; LYMPHOCYTE # 0.9 K/uL (0.8-4.0); LYMPHOCYTE % 18.7 %; MCH 31.5 pg (27.0-34.0); MCHC 32.2 gm/dL (32.0-36.5); MCV 97.9 fl (83.0-98.0); MONOCYTE # 0.3 K/uL (0.0-1.0); MONOCYTE % 6.8 %; MPV 9.3 fl (9.4-12.4); NEUTROPHIL # (ANC) 3.2 K/uL (1.4-9.0); NEUTROPHIL % 66.1 %; NRBC % 0 /100WBC (0-0.00); PLATELET COUNT 88 K/uL (150-450); RBC 2.89 M/uL (4.00-6.00); WBC 4.9 K/uL (4.0-11.0)
[2016-09-08 17:41] LABS: RDW-CV 24.2 % (11.9-14.6)
[2016-09-08 17:57] LABS: ALBUMIN 2.3 gm/dL (3.5-5.0); ALK PHOS 138 IU/L (33-138); ALT 68 IU/L (12-78); ANION GAP 12.3 (10.0-19.0); AST 137 IU/L (10-40); BLOOD UREA NITROGEN 11 mg/dL (6-24); CHLORIDE 106 mMol/L (96-110); CO2 28 mMol/L (22-32); CPK 154 IU/L (35-332); CREATININE 0.8 mg/dL (0.6-1.3); ESTIMATED GFR (MDRD EQUATION) > 60; POTASSIUM 3.3 mMol/L (3.7-5.1); SODIUM 143 mMol/L (135-145); TOTAL BILIRUBIN 1.8 mg/dL (0.0-1.5); TOTAL PROTEIN 5.8 g/dL (6.0-8.4)
[2016-09-08 17:58] LABS: CALCIUM 7.2 mg/dL (8.5-10.5)
[2016-09-08 18:11] LABS: INR - (THERAPEUTIC) 1.39 (0.92-1.07); PROTIME 14.6 SECONDS (9.8-11.4); PTT 39 SECONDS (25-32)
[2016-09-21] MEDS ORDERED: CPAP INH (10:24)
[2016-09-21] MEDS ORDERED: DUONEB INH (10:58)
[2016-11-08] MEDS ORDERED: OSCAL500 MG PO (09:23)
[2016-11-08] MEDS ORDERED: MAG-OX-400(241400 MG PO (09:23)
[2016-11-08] MEDS ORDERED: PROZAC10 MG PO (09:24)
[2016-11-08] MEDS ORDERED: RISPERDAL0.5 MG PO (09:39)
[2016-11-11] MEDS ORDERED: CARAFATE1 GM PO (09:04)
== END 2016-09-08 19:40 | disposition disaster alternative care site (69) ==
LOC: GMED 17:00
PROVIDERS: Family Medicine
DX: S09.90XA Unspecified injury of head, initial encounter (principal); R06.02 Shortness of breath; S49.91XA Unspecified injury of right shoulder and upper arm, initial encounter; E03.9 Hypothyroidism, unspecified; Z79.899 Other long term (current) drug therapy; W01.0XXA Fall on same level from slipping, tripping and stumbling without subsequent striking against object, initial encounter; Y92.096 Garden or yard of other non-institutional residence as the place of occurrence of the external cause
CPT/HCPCS: Q9967

== ENCOUNTER 2016-09-16 22:08 | Emergency (ER) | payer MEDICAID ==
--- NOTE | ~2016-09-16 | ER ---
PATIENT'S NAME: JM GAXIOLA [facility] AGE: 50 Y [address] ROOM: [place] [address] LOCATION: [facility] ADMIT DATE: 09/16/2016 ER/Outpatient Report DISCHARGE DATE: 09/16/2016 FAMILY PHYSICIAN: Lauri Cai MD ATTENDING PHYSICIAN: Isabel Faustin HISTORY OF PRESENT ILLNESS: A 50-year-old male, who presents today with chief complaint of right leg pain. The max pain is right below. It is on his solano below his right knee. The patient says that it has been bothering him for the last 2 days. Denies any nausea, vomiting, fever, chills. He says he feels like it is the skin. It is sharp and it aches. He says it feels little bit swollen too. He denies any calf pain. He reports the pain is 10/10, but he has not taken anything for pain. No recent trauma, no other complaints. PAST MEDICAL HISTORY: Includes morbid obesity, cirrhosis, hep C, [place] x2, heart disease, colon polyps, hypothyroidism, heart murmur. SURGICAL HISTORY: Shoulder. SOCIAL HISTORY: He does not smoke, drink, or use any drugs. MEDICATIONS: Please see med list. ALLERGIES: NONE. REVIEW OF SYSTEMS: Reviewed by me and negative with the exception of those discussed in the HPI. PHYSICAL EXAMINATION: VITAL SIGNS: The patient is 5 feet 8 inches, he weighs 182 kg, blood pressure 146/71, heart rate 80, respiratory rate 16, temperature is 98.4, saturation is 97%. GENERAL: The patient walks into the ER with a cane, which is at his baseline. He is alert and oriented. He is not confused. He is not toxic or febrile. He is not lethargic. GCS is 15 at this time. HEART: His heart rate is regular rate and rhythm. LUNGS: His lungs sounds sound diminished at the bases, but he has no increased work of breathing or respiratory distress. ABDOMEN: Soft, nontender. He has no epigastric tenderness or right upper PATIENT'S NAME: JM GAXIOLA [facility] AGE: 50 Y [address] ROOM: [place] [address] LOCATION: [facility] ADMIT DATE: 09/16/2016 ER/Outpatient Report DISCHARGE DATE: 09/16/2016 FAMILY PHYSICIAN: Lauri Cai MD ATTENDING PHYSICIAN: Isabel Faustin quadrant tenderness. He is morbidly obese. Normoactive bowel sounds. EXTREMITIES: He has chronic venous stasis changes on both lower extremities. It seems worse on the right. He does not have any calf tenderness on the right, but on the front in the solano area, there is an area that appears to be just chronic venous stasis, but it is warmer to touch in the left and more tender to touch. There is no crepitus though. There is no evidence of necrosis at all. He has some mild swelling just below the knee on the right compared to the left, but it is not red, warm, or cellulitic. He has full range of motion of that knee. He has no tenderness of the knee cap. No joint effusion at all and his knee is not warm to touch at all. EMERGENCY ROOM COURSE: We discussed with the patient, this is more may be early cellulitis. We will start him on clindamycin, which should cover strep and staph and then I gave him some Tylenol No.3 for pain and he is to follow up with his doctor in 2 days for wound check. He understands the reasons to come back to the ER sooner. IMPRESSION: Right leg pain. MD KATHRYN SILVAW/alexial /[id number] d: 09/17/16 0458 t: 09/17/16 1934, OUTPATIENT REPORT
[2016-09-21] MEDS ORDERED: CPAP INH (10:24)
[2016-09-21] MEDS ORDERED: DUONEB INH (10:58)
[2016-11-08] MEDS ORDERED: OSCAL500 MG PO (09:23)
[2016-11-08] MEDS ORDERED: MAG-OX-400(241400 MG PO (09:23)
[2016-11-08] MEDS ORDERED: PROZAC10 MG PO (09:24)
[2016-11-08] MEDS ORDERED: RISPERDAL0.5 MG PO (09:39)
[2016-11-11] MEDS ORDERED: CARAFATE1 GM PO (09:04)
== END 2016-09-16 23:03 | disposition disaster alternative care site (69) ==
LOC: GMED 22:08
DX: M79.661 Pain in right lower leg (principal); I25.2 Old myocardial infarction; I51.9 Heart disease, unspecified; E03.9 Hypothyroidism, unspecified; E66.01 Morbid (severe) obesity due to excess calories; K74.60 Unspecified cirrhosis of liver; Z79.899 Other long term (current) drug therapy; Z86.19 Personal history of other infectious and parasitic diseases; Z98.890 Other specified postprocedural states

== ENCOUNTER → 2016-09-21 | Outpatient (CLI) | payer MEDICAID ==
[~2016-09-21] MED LIST changes: +CALCIUM 600 +1 EAC3 PO; +CPAP INH; +DUONEB INH; +LIDOCAINE1 EACH TOP; +OSCAL500 MG PO; +VITAMIN D250000 UNIT PO
--- NOTE | ~2016-09-21 | ENPV ---
Vascular Lower Extremities DVT Study Procedure Demographics Patient Name JM GAXIOLA Date of Study 09/21/2016 R Patient Number [id number] Gender Male Date of 1965 Age 50 Visit Number [id number] Height Accession Number [id number] Weight Room Number BSA BMI Referring Trell Carreon MD Interpreting Kamaljit Phelps MD Physician Physician Physician Ordering Physician Trell Carreon MD Front Attendant Theater Technician Giuseppe Alcaraz, RVT Conclusions Summary No evidence of deep vein thrombosis in the right common femoral vein, femoral vein, popliteal vein, and distal posterior tibial veins. The right proximal to mid posterior tibial veins and peroneal veins were not visualized secondary to body habitus and edema. Procedure Type of Study: Veins:Lower Extremities DVT Study, Lower Extremity Right. Indications for Study:Unilateral pain and edema. Appropriate Use Criteria:9 Patient Status:Routine. Study Location:[facility]. Technical Quality:Limited visualization due to edema. - Preliminary reported to:Dr. Cai' nurse Pamela @ 1400. Velocities are measured in cm/s ; Diameters are measured in cm Right Lower Extremities DVT Study Measurements Right 2D and Doppler Measurements + + + + +------+------+ + !Location !Visualized!Compressibility!Thrombosis!Signal!Reflux!Reflux ! ! ! ! ! ! ! !(sec) ! + + + + +------+------+ + !GSV Thigh !Yes !Yes !None !Phasic!No ! ! + + + + +------+------+ + !Common !Yes !Yes !None !Phasic!No ! ! !Femoral ! ! ! ! ! ! ! + + + + +------+------+ + !Prox !Yes !Yes !None !Phasic!No ! ! !Femoral ! ! ! ! ! ! ! + + + + +------+------+ + !Mid Femoral!Yes !Yes !None !Phasic!No ! ! + + + + +------+------+ + !Dist !Yes !Yes !None !Phasic!No ! ! !Femoral ! ! ! ! ! ! ! + + + + +------+------+ + !Popliteal !Yes !Yes !None !Phasic!No ! ! + + + + +------+------+ + !Gastroc !Yes !Yes !None ! ! ! ! + + + + +------+------+ + !PTV !Yes !Yes !None ! ! ! ! + + + + +------+------+ + !Peroneal !No ! ! ! ! ! ! + + + + +------+------+ + Left Lower Extremities DVT Study Measurements Left 2D and Doppler Measurements + + + + +------+------+ + !Location !Visualized!Compressibility!Thrombosis!Signal!Reflux!Reflux ! ! ! ! ! ! ! !(sec) ! + + + + +------+------+ + !Common !Yes !Yes !None !Phasic!No ! ! !Femoral ! ! ! ! ! ! ! + + + + +------+------+ + Signature dtt: NOAH DAVIS: 09/21/16 1315 Physician Self Edit
== END | disposition disaster alternative care site (69) ==
LOC: GCAR 13:06
DX: M79.89 Other specified soft tissue disorders (principal); M79.606 Pain in leg, unspecified

== ENCOUNTER → 2016-09-23 | Day surgery (SDC) | payer MEDICAID ==
[~2016-09-23] VITALS: Ht 172.7 cm; Wt 183.1 kg
--- NOTE | 2016-09-23 09:14 | NUR ---
2 IV ATTEMPTS MADE PER SHIELARN
== END | disposition disaster alternative care site (69) ==
LOC: GPOC 09-20 16:00 → GEND 08:32 → GPOC 16:00
PROC: 0W3P8ZZ Control Bleeding in Gastrointestinal Tract, Via Natural or Artificial Opening Endoscopic (ICD-10-PCS; principal; 2016-09-23)
PROC: 0DJD8ZZ Inspection of Lower Intestinal Tract, Via Natural or Artificial Opening Endoscopic (ICD-10-PCS; 2016-09-23)
DX: K31.7 Polyp of stomach and duodenum (principal); I85.00 Esophageal varices without bleeding; M19.90 Unspecified osteoarthritis, unspecified site; I25.10 Atherosclerotic heart disease of native coronary artery without angina pectoris; I10 Essential (primary) hypertension; I25.2 Old myocardial infarction; K76.6 Portal hypertension; G47.30 Sleep apnea, unspecified; F32.9 Major depressive disorder, single episode, unspecified; F41.9 Anxiety disorder, unspecified; J44.9 Chronic obstructive pulmonary disease, unspecified; E66.01 Morbid (severe) obesity due to excess calories; E03.9 Hypothyroidism, unspecified; Z99.89 Dependence on other enabling machines and devices; Z98.890 Other specified postprocedural states; Z79.899 Other long term (current) drug therapy
CPT/HCPCS: J2001; J7030

== ENCOUNTER 2016-11-01 18:44 | Emergency (ER) | payer MEDICAID ==
--- NOTE | ~2016-11-01 | ER ---
PATIENT'S NAME: MJ GAXIOLA [facility] AGE: 51 Y [address] ROOM: [place] [address] LOCATION: ED ADMIT DATE: 11/01/2016 ER/Outpatient Report DISCHARGE DATE: 11/01/2016 FAMILY PHYSICIAN: Lauri Cai MD ATTENDING PHYSICIAN: Nhan Conley Time of Arrival: 1844 hours. Time of Evaluation: 1848 hours. CHIEF COMPLAINT: Leg pain. HISTORY OF PRESENT ILLNESS: The patient is a 51-year-old male, who presents to the emergency department today with a chief complaint of leg pain. He reports it has been going on for quite some time. It has just gotten worse over the past day. He does report he has lost quite a bit of weight lately. He has been more active than normal. He also reports that he has run out of his tramadol today. He tried to see Dr. Cai today but he was unavailable. He feels like the right leg maybe more swollen the other one. PAST MEDICAL HISTORY: Liver cirrhosis, anemia, hepatitis C, history of alcohol abuse, obstructive sleep apnea, hypertension, hypothyroid. PAST SURGICAL HISTORY: Back surgery, shoulder surgery. SOCIAL HISTORY: The patient denies any tobacco, alcohol, or illicit drug use. ALLERGIES: NO KNOWN DRUG ALLERGIES. MEDICATIONS: Please see list. PRIMARY CARE DOCTOR: Dr. Cai. REVIEW OF SYSTEMS: All systems are reviewed by myself and are negative with the exception of those discussed in the HPI and past medical history. PHYSICAL EXAMINATION: PATIENT'S NAME: KHALIDAJM LEOS [facility] AGE: 51 Y [address] ROOM: [place] [address] LOCATION: [facility] ADMIT DATE: 11/01/2016 ER/Outpatient Report DISCHARGE DATE: 11/01/2016 FAMILY PHYSICIAN: Lauri Cai MD ATTENDING PHYSICIAN: Nhan Conley VITAL SIGNS: Weight 169.3 kg, blood pressure 149/87, pulse 98, respiratory rate 24, temperature 99.1, oxygen saturation 96% on room air. GENERAL: The patient is a 51-year-old male, who appears stated age, in no acute distress at this time. HEENT: Head: Normocephalic, atraumatic. Pupils are equal, round, and reactive to light. NECK: Supple. There is no nuchal rigidity. CARDIOVASCULAR: Regular rate and rhythm. No murmurs, rubs, or gallops. LUNGS: Clear to auscultation bilaterally. No wheezes, rales, or rhonchi. ABDOMEN: Soft, nontender, and nondistended. No rebound, rigidity, or guarding. MUSCULOSKELETAL: The patient moves all 4 extremities. Ambulates in the room. SKIN: The patient does have 3+ pretibial edema with brownish discolorization of both legs. There is no erythema noted. SKIN: Otherwise warm and dry. LABORATORY DATA AND X-RAYS: Labs and x-rays are obtained. CBC is unremarkable except for hemoglobin 8.9, hematocrit 25.9, platelet 95. CMP: Potassium 2.8, otherwise normal. Alkaline phosphatase is normal, AST is 129, ALT is normal. Magnesium is normal. CK and CK-MB and troponin are normal. ProBNP is normal. PTT is 39, INR is 1.31. D-dimer is 0.75. Venous Doppler is negative. IMPRESSION: 1. Bilateral lower extremity swelling. 2. Hypokalemia. 3. Chronic anemia. 4. Liver cirrhosis. 5. Initial visit. EMERGENCY DEPARTMENT COURSE: The patient was brought back to the examination room. Seen and evaluated by myself. Laboratory analysis and IV are obtained as described above. Results are obtained. The patient denies any chest pain or shortness of breath. The patient is noted to be hypokalemic with a potassium 2.8. I have discussed results with the patient. He was given potassium chloride 20 mEq IV over 2 hours as well as 60 mEq of potassium chloride p.o. He was given 400 mg of magnesium oxide p.o. We did give him tramadol 50 mg p.o. for pain. I have discussed results with the patient. I have written a prescription for tramadol for home. I have asked he follows up with Dr. Cai in 2 to 3 days for re-evaluation. I have discussed return to care instructions including chest pain, shortness of breath or any other concerns to return to the emergency department as soon as possible. The patient is agreeable without further questions at this time. PATIENT'S NAME: JM GAXIOLA [facility] AGE: 51 Y [address] ROOM: [place], [place] [address] LOCATION: [facility] ADMIT DATE: 11/01/2016 ER/Outpatient Report DISCHARGE DATE: 11/01/2016 FAMILY PHYSICIAN: Lauri Cai MD ATTENDING PHYSICIAN: Nhan Conley DISPOSITION,: The patient is discharged home in good condition. DO ITALO SIDDIQI/kaila /[id number] d: 11/02/16246 t: 11/02/161911, OUTPATIENT REPORT
--- NOTE | ~2016-11-01 | ENPV ---
Vascular Lower Extremities DVT Study Procedure Demographics Patient Name JM GAXIOLA Date of Study 11/01/2016 R Patient Number [id number] Gender Male Date of 1965 Age 51 Visit Number [id number] Height Accession Number [id number] Weight Room Number BSA BMI Referring Vamsi Garcia Kamaljit Phelps MD Physician MD Physician Yael Justin MD Physician Ordering Physician Yael Justin MD Frozen Foods Manager Station Cleaning Porter Giuseppe Alcaraz, [facility] Bebe Pina Conclusions Summary Normal venous duplex examination of the legs bilaterally with normal venous Doppler signals noted throughout. No evidence of thrombophlebitis is noted bilaterally in the deep and superficial veins of the legs. The calf veins bilaterally could not be seen due to patient body habitus and overlying edema. Incidental finding of a probable right knott's cyst in the popliteal fossa. This is non vascular and the differentials include hematoma or mass. Procedure Type of Study: Veins:Lower Extremities DVT Study, Venous Duplex Lower Extremity Bilateral. Additional Indications:Pain and swelling bilateral lower extremities. Appropriate Use Criteria:9 Patient Status:STAT. Study Location:ER. Technical Quality:Limited visualization due to body habitus. - Preliminary reported to:Dr. Conley @ 20:00. Velocities are measured in cm/s ; Diameters are measured in cm Right Lower Extremities DVT Study Measurements Right 2D and Doppler Measurements + + + + +------+------+ + !Location !Visualized!Compressibility!Thrombosis!Signal!Reflux!Reflux ! ! ! ! ! ! ! !(sec) ! + + + + +------+------+ + !GSV Thigh !Yes !Yes !None !Phasic!No ! ! + + + + +------+------+ + !Common !Yes !Yes !None !Phasic!No ! ! !Femoral ! ! ! ! ! ! ! + + + + +------+------+ + !Prox !Yes !Yes !None !Phasic!No ! ! !Femoral ! ! ! ! ! ! ! + + + + +------+------+ + !Mid Femoral!Yes !Yes !None !Phasic!No ! ! + + + + +------+------+ + !Dist !Yes !Yes !None !Phasic!No ! ! !Femoral ! ! ! ! ! ! ! + + + + +------+------+ + !Popliteal !Yes !Yes !None !Phasic!No ! ! + + + + +------+------+ + !PTV !No ! ! ! ! ! ! + + + + +------+------+ + !Peroneal !No ! ! ! ! ! ! + + + + +------+------+ + Left Lower Extremities DVT Study Measurements Left 2D and Doppler Measurements + + + + +------+------+ + !Location !Visualized!Compressibility!Thrombosis!Signal!Reflux!Reflux ! ! ! ! ! ! ! !(sec) ! + + + + +------+------+ + !GSV Thigh !Yes !Yes !None !Phasic!No ! ! + + + + +------+------+ + !Common !Yes !Yes !None !Phasic!No ! ! !Femoral ! ! ! ! ! ! ! + + + + +------+------+ + !Prox !Yes !Yes !None !Phasic!No ! ! !Femoral ! ! ! ! ! ! ! + + + + +------+------+ + !Mid Femoral!Yes !Yes !None !Phasic!No ! ! + + + + +------+------+ + !Dist !Yes !Yes !None !Phasic!No ! ! !Femoral ! ! ! ! ! ! ! + + + + +------+------+ + !Popliteal !Yes !Yes !None !Phasic!No ! ! + + + + +------+------+ + !PTV !No ! ! ! ! ! ! + + + + +------+------+ + !Peroneal !No ! ! ! ! ! ! + + + + +------+------+ + Signature dtt: NOAH DAVIS: 11/01/16 1933 Physician Self Edit
[~2016-11-01 18:44] MED LIST changes: -CALCIUM 600 +1 EAC3 PO; -LIDOCAINE1 EACH TOP; -OSCAL500 MG PO; -VITAMIN D250000 UNIT PO
[2016-11-01 19:17] LABS: BASOPHIL % 0.6 %; EOSINOPHIL # 0.2 K/uL (0.0-0.5); EOSINOPHIL % 4.2 %; HEMATOCRIT 25.9 % (37.0-53.0); HEMOGLOBIN 8.9 g/dL (12.0-17.0); IMMATURE GRANULOCYTE % 0.4 %; LYMPHOCYTE # 1.1 K/uL (0.8-4.0); LYMPHOCYTE % 19.8 %; MCH 32.8 pg (27.0-34.0); MCHC 34.4 gm/dL (32.0-36.5); MCV 95.6 fl (83.0-98.0); MONOCYTE # 0.7 K/uL (0.0-1.0); MONOCYTE % 12.3 %; MPV 9.1 fl (9.4-12.4); NEUTROPHIL # (ANC) 3.4 K/uL (1.4-9.0); NEUTROPHIL % 62.7 %; NRBC % 0 /100WBC (0-0.00); PLATELET COUNT 95 K/uL (150-450); RBC 2.71 M/uL (4.00-6.00); WBC 5.5 K/uL (4.0-11.0)
[2016-11-01 19:18] LABS: RDW-CV 16.5 % (11.9-14.6)
[2016-11-01 19:26] LABS: INR - (THERAPEUTIC) 1.31 (0.92-1.07); PROTIME 13.8 SECONDS (9.8-11.4); PTT 39 SECONDS (25-32)
[2016-11-01 19:36] LABS: ALBUMIN 2.5 gm/dL (3.5-5.0); ALK PHOS 136 IU/L (33-138); ALT 70 IU/L (12-78); AST 129 IU/L (10-40); BLOOD UREA NITROGEN 16 mg/dL (6-24); CALCIUM 7.7 mg/dL (8.5-10.5); CHLORIDE 105 mMol/L (96-110); CO2 27 mMol/L (22-32); CPK 228 IU/L (35-332); CREATININE 0.9 mg/dL (0.6-1.3); MAGNESIUM 1.8 mg/dL (1.8-2.6); SODIUM 140 mMol/L (135-145); TOTAL BILIRUBIN 2.1 mg/dL (0.0-1.5); TOTAL PROTEIN 6.4 g/dL (6.0-8.4)
[2016-11-01 19:42] LABS: ANION GAP 10.8 (10.0-19.0); POTASSIUM 2.8 mMol/L (3.7-5.1)
[2016-11-08] MEDS ORDERED: MAG-OX-400(241400 MG PO (09:23)
[2016-11-08] MEDS ORDERED: OSCAL500 MG PO (09:23)
[2016-11-08] MEDS ORDERED: PROZAC10 MG PO (09:24)
[2016-11-08] MEDS ORDERED: RISPERDAL0.5 MG PO (09:39)
[2016-11-11] MEDS ORDERED: CARAFATE1 GM PO (09:04)
== END 2016-11-01 22:31 | disposition disaster alternative care site (69) ==
LOC: GMED 18:44
PROVIDERS: Emergency Medicine
DX: M79.89 Other specified soft tissue disorders (principal); E87.6 Hypokalemia; D64.9 Anemia, unspecified; K74.60 Unspecified cirrhosis of liver; I10 Essential (primary) hypertension; E03.9 Hypothyroidism, unspecified; Z98.890 Other specified postprocedural states; Z79.2 Long term (current) use of antibiotics; Z79.891 Long term (current) use of opiate analgesic; Z79.899 Other long term (current) drug therapy; Z86.19 Personal history of other infectious and parasitic diseases
CPT/HCPCS: J3480; J7040; J7050

== ENCOUNTER → 2016-11-11 | Day surgery (SDC) | payer MEDICAID ==
[~2016-11-11] VITALS: Ht 172.7 cm; Wt 178.4 kg
[~2016-11-11] MED LIST changes: +CALCIUM 600 +1 EAC3 PO; +LIDOCAINE1 EACH TOP; +OSCAL500 MG PO; +VITAMIN D250000 UNIT PO
== END | disposition disaster alternative care site (69) ==
LOC: GPOC 11-08 09:00 → GEND 06:53
PROC: 0W3P8ZZ Control Bleeding in Gastrointestinal Tract, Via Natural or Artificial Opening Endoscopic (ICD-10-PCS; principal; 2016-11-11)
DX: K25.9 Gastric ulcer, unspecified as acute or chronic, without hemorrhage or perforation (principal); I85.00 Esophageal varices without bleeding; M19.90 Unspecified osteoarthritis, unspecified site; K21.9 Gastro-esophageal reflux disease without esophagitis; F32.9 Major depressive disorder, single episode, unspecified; F41.9 Anxiety disorder, unspecified; I25.10 Atherosclerotic heart disease of native coronary artery without angina pectoris; I10 Essential (primary) hypertension; I25.2 Old myocardial infarction; K76.6 Portal hypertension; D64.9 Anemia, unspecified; J44.9 Chronic obstructive pulmonary disease, unspecified; E87.6 Hypokalemia; E83.42 Hypomagnesemia; E03.9 Hypothyroidism, unspecified; G89.29 Other chronic pain; G47.33 Obstructive sleep apnea (adult) (pediatric); E66.01 Morbid (severe) obesity due to excess calories; K72.90 Hepatic failure, unspecified without coma; F10.21 Alcohol dependence, in remission; Z87.891 Personal history of nicotine dependence; Z98.890 Other specified postprocedural states; Z79.899 Other long term (current) drug therapy; Z88.6 Allergy status to analgesic agent; Z88.8 Allergy status to other drugs, medicaments and biological substances
CPT/HCPCS: J2001; J7030

== ENCOUNTER 2016-11-15 17:49 | Emergency (ER) | payer MEDICAID ==
--- NOTE | ~2016-11-15 | ER ---
[facility] AGE[facility] 51 Y [address] ROOM: [place] [address] LOCATION: ED ADMIT DATE: 11/15/2016 ER/Outpatient Report DISCHARGE DATE: 11/15/2016 FAMILY PHYSICIAN: Lauri Cai MD ATTENDING PHYSICIAN: Nhan Conley Time of Arrival: 1754 hours. Time of Evaluation: 1754 hours. CHIEF COMPLAINT: Abdominal pain. HISTORY OF PRESENT ILLNESS: The patient states he woke this morning with abdominal pain. He is out of his Ultram that he normally takes for his pain. He reports he has not felt the best today. He has felt feverish at times. He has been nauseated, but no vomiting. Denies having any diarrhea or urinary changes. Reports this pain is similar to the pain that he has had in the past. ALLERGIES: NO KNOWN ALLERGIES. CURRENT MEDICATIONS: On the chart and reviewed by me. PAST MEDICAL HISTORY: Hepatitis C, sleep apnea, asthma, esophageal varices. PAST SURGICAL HISTORY: Upper GI, leg surgery, foot surgery. SOCIAL HISTORY: He presents to the ER accompanied by his . Denies use of tobacco, drugs, or alcohol. REVIEW OF SYSTEMS: Negative other than those mentioned in the HPI. PHYSICAL EXAMINATION: VITAL SIGNS: He weighed 183.1 kg, blood pressure was 190/92, pulse of 84, respirations 20, temperature of 99.5, O2 saturation was 97% on room air. GENERAL: He is awake, alert, and oriented x4. SKIN: [place], warm, and dry. RESPIRATIONS: Even and nonlabored. Lung sounds are clear throughout. HEART: Regular rate and rhythm. PATIENT'S NAME: JM GAXIOLA [facility] AGE: 51 Y [address] ROOM: [place] [address] LOCATION: [facility] ADMIT DATE: 11/15/2016 ER/Outpatient Report DISCHARGE DATE: 11/15/2016 FAMILY PHYSICIAN: Lauri Cai MD ATTENDING PHYSICIAN: Nhan Conley ABDOMEN: Soft and nondistended. Bowel sounds are present. EXTREMITIES: He walks in with a steady even gait. EMERGENCY DEPARTMENT COURSE: Lab work was drawn. LABORATORY DATA AND X-RAYS: CBC shows a white count of 5.3, his hemoglobin is 9.2. Chem panel, BUN is 20 with a creatinine of 1. Total bilirubin is 2.1 with an AST of 149, which is norm for the patient. His ALT was 80. GFR was 86, amylase was 55 with a lipase of 364. Lactate was 2.1. Procalcitonin was 0.07. The patient was given ibuprofen 800 mg p.o. IMPRESSION: Abdominal pain, chronic. PLAN: Home, rest, fluids. Continue his current medications. Prescription was written for 20 of tramadol that he takes for pain. Did discuss with him the need to talk with Dr. Cai regarding the dosage of tramadol. He and his verbalized understanding. ERINN WEBSTER APRN FOR DO AUREA SIDDIQI/kaila /[id number] d: 11/15/16 2346 t: 11/18/16 0156, OUTPATIENT REPORT
[~2016-11-15 17:49] MED LIST changes: -CALCIUM 600 +1 EAC3 PO; -LIDOCAINE1 EACH TOP; -VITAMIN D250000 UNIT PO
[2016-11-15 18:35] LABS: BASOPHIL % 0.6 %; EOSINOPHIL # 0.1 K/uL (0.0-0.5); EOSINOPHIL % 2.6 %; HEMATOCRIT 28.1 % (37.0-53.0); HEMOGLOBIN 9.2 g/dL (12.0-17.0); IMMATURE GRANULOCYTE % 0.2 %; LYMPHOCYTE % 18.5 %; MCH 30.8 pg (27.0-34.0); MCHC 32.7 gm/dL (32.0-36.5); MONOCYTE # 0.5 K/uL (0.0-1.0); MONOCYTE % 9.4 %; MPV 9.1 fl (9.4-12.4); NEUTROPHIL # (ANC) 3.7 K/uL (1.4-9.0); NEUTROPHIL % 68.7 %; NRBC % 0 /100WBC (0-0.00); PLATELET COUNT 95 K/uL (150-450); RBC 2.99 M/uL (4.00-6.00); RDW-CV 15.6 % (11.9-14.6); WBC 5.3 K/uL (4.0-11.0)
[2016-11-15 18:53] LABS: ALBUMIN 2.7 gm/dL (3.5-5.0); ANION GAP 12.1 (10.0-19.0); CALCIUM 8.4 mg/dL (8.5-10.5); POTASSIUM 3.1 mMol/L (3.7-5.1); TOTAL BILIRUBIN 2.1 mg/dL (0.0-1.5); TOTAL PROTEIN 6.8 g/dL (6.0-8.4)
== END 2016-11-15 19:17 | disposition disaster alternative care site (69) ==
LOC: GMED 17:49
PROVIDERS: Emergency Medicine
DX: R10.9 Unspecified abdominal pain (principal); J45.909 Unspecified asthma, uncomplicated; B19.20 Unspecified viral hepatitis C without hepatic coma; G47.30 Sleep apnea, unspecified; I85.00 Esophageal varices without bleeding; Z98.890 Other specified postprocedural states; Z79.891 Long term (current) use of opiate analgesic; Z79.899 Other long term (current) drug therapy

== ENCOUNTER 2016-11-25 23:02 | Emergency (ER) | payer MEDICAID ==
--- NOTE | ~2016-11-25 | ER ---
[facility] 51 Y [address] ROOM: [place] [address] LOCATION: ED ADMIT DATE: 11/25/2016 ER/Outpatient Report DISCHARGE DATE: 11/25/2016 FAMILY PHYSICIAN: Lauri Cai MD ATTENDING PHYSICIAN: Tyler Ron Time of arrival: 2313 hours. Time of exam: 2320 hours. CHIEF COMPLAINT: Right shoulder pain. HISTORY OF PRESENT ILLNESS: The patient states he is being seen at [facility] for a right shoulder problem. He is scheduled to followup with them on Monday. He has been taking tramadol for pain. He takes two tabs in the morning and two tabs at night and he does not have enough pain medicine to get him through to Monday. He reports today that he also noticed that his eyes are puffy, his nose is a little congested, but he has not ate anything different. Does not have any trouble breathing. Has no trouble swallowing. States he did not have any Benadryl at home to take. ALLERGIES: NO KNOWN ALLERGIES. CURRENT MEDICATIONS: On his chart and reviewed by me. PAST MEDICAL HISTORY: Hypertension and chronic pain. PAST SURGICAL HISTORY: Right shoulder surgery. SOCIAL HISTORY: He denies the use of tobacco, drugs, or alcohol. He presents to the ER accompanied by his . REVIEW OF SYSTEMS: Negative other than those mentioned in the HPI. PHYSICAL EXAMINATION: VITAL SIGNS: Blood pressure is 172/79, pulse is 68, respirations are 16, temperature of 98.3, and O2 saturations 93% on room air. GENERAL: He is awake, alert, and oriented x4. PATIENT'S NAME: JM GAXIOLA [facility] AGE: 51 Y [address] ROOM: [place] [address] LOCATION: [facility] ADMIT DATE: 11/25/2016 ER/Outpatient Report DISCHARGE DATE: 11/25/2016 FAMILY PHYSICIAN: Lauri Cai MD ATTENDING PHYSICIAN: Tyler Ron HEENT: He does have some puffiness of his eyes. His nasal is boggy. Oropharynx is clear. NECK: Supple. No lymphadenopathy. SKIN: [place], warm, and dry. RESPIRATIONS: Even and nonlabored. Lung sounds are clear throughout. HEART: Regular rate and rhythm. IMPRESSION: 1. Allergies. 2. Shoulder pain. PLAN: Home, rest. He was given a dose of Benadryl 50 mg p.o. prior to discharge. Prescription was written for tramadol. He is to keep his appointment on Monday as scheduled. He and his verbalized understanding. ERINN WEBSTER APRN FOR MD AUREA MASCORRO/kaila /[id number] d: 11/26/16 0242 t: 11/30/16 1331, OUTPATIENT REPORT
[~2016-11-25 23:02] MED LIST changes: -CALCIUM 600 +1 EAC3 PO; -LIDOCAINE1 EACH TOP; -VITAMIN D250000 UNIT PO
== END 2016-11-25 23:31 | disposition disaster alternative care site (69) ==
LOC: GMED 23:02
DX: M25.511 Pain in right shoulder (principal); T78.40XA Allergy, unspecified, initial encounter; I10 Essential (primary) hypertension; Z98.890 Other specified postprocedural states; Z79.891 Long term (current) use of opiate analgesic

== ENCOUNTER → 2016-11-25 | Outpatient (CLI) | payer MEDICAID ==
[~2016-11-25] MED LIST changes: +CALCIUM 600 +1 EAC3 PO; +LIDOCAINE1 EACH TOP; +VITAMIN D250000 UNIT PO
== END | disposition disaster alternative care site (69) ==
LOC: GRAD 11-23 08:00
DX: Z47.1 Aftercare following joint replacement surgery (principal); M19.011 Primary osteoarthritis, right shoulder; Z96.611 Presence of right artificial shoulder joint

== ENCOUNTER 2016-11-26 09:21 | Observation (INO) | payer MEDICAID ==
[~2016-11-26] VITALS: Ht 172.7 cm; Wt 187.0 kg
--- NOTE | ~2016-11-26 | DS ---
PATIENT'S NAME: JM GAXIOLA [facility] AGE: 51 Y [address] ROOM: [address] [address] LOCATION: [facility] [place] ADMIT DATE: 11/26/2016 Discharge Summary DISCHARGE DATE: 11/29/2016 FAMILY PHYSICIAN: Lauir Cai MD ATTENDING PHYSICIAN: Faustino Barboza DISCHARGE DIAGNOSES: 1. Acute hepatic encephalopathy. 2. Pancytopenia secondary to chronic liver disease. 3. Essential hypertension. 4. Chronic pain disorder. 5. Obstructive sleep apnea. 6. Hepatitis C, chronic. 7. Cirrhosis. HOSPITAL COURSE: Please refer to the admitting history and physical as dictated by Dr. Barboza. Briefly, the patient was admitted to [facility] with concerns of increased weakness, confusion, and concern for hepatic encephalopathy. He does state that he does not take his lactulose more than twice a day. Ammonia level on admit was 104, it did increase to 121, and prior to discharge it was 98. Ultrasound of the abdomen was performed to rule out ascites. No ascites was identified on the ultrasound. He was placed on heparin for DVT prophylaxis. Lactulose 30 mL twice daily was initiated, which was eventually titrated to 45 mL 3 times a day. He did continue to wear his CPAP as at home. His home medications were resumed. The patient gradually improved. On the first day, he did have three bowel movements, however, the second hospitalization day, he had no bowel movements at which time, his lactulose was increased. He did have some noted urinary retention. A Perez catheter was placed and subsequently removed. He was able to void without difficulty. On 11/28, his ammonia was found to be 121 with a total bilirubin of 3.1. Overall, he had been feeling well. His potassium was 3.4. He was given 20 mEq as replacement. Gradually, the patient improved. On 11/29, his ammonia level had decreased to 98. Total bilirubin 1.5. He was up ambulatory. He was awake, alert, and oriented x3. His hypokalemia had resolved. His mental status had improved. It was felt as though he was stable to be discharged to home. Follow up with Dr. Cai in 3 days with a CBC and renal panel at that time. LABORATORY DATA: Sodium 141 to 142; potassium 3.3 on admit, 3.9 prior to discharge; calcium 8.4; BUN 10 to 14; and creatinine 0.4 to 0.8. Total bilirubin 2.2 on admit, 3.1 at its highest, and 1.5 prior to discharge. Alkaline phosphatase 166 on admit, 117 prior to discharge. AST 149 on admit, 106 prior to discharge. ALT 80 on admit, 60 prior to discharge. GFR greater than 90. CPK 250, CK-MB 2.7, and troponin less than 0.040. Ammonia 104 on admit, went as high as 121, and 98 prior to discharge. WBCs 3.4 to 5.3, PATIENT'S NAME: JM GAXIOLA [facility] AGE: 51 Y [address] ROOM: [address] [place] [id number] LOCATION: [facility] [place] ADMIT DATE: 11/26/2016 Discharge Summary DISCHARGE DATE: 11/29/2016 FAMILY PHYSICIAN: Lauri Cai MD ATTENDING PHYSICIAN: Faustino Barboza hemoglobin 8.5 to 9.0, hematocrit 26.5 to 27.3, and platelets 84,000 to 97,000. UA; nitrites negative, ketones negative, blood 25, and bacteria negative. Radiology Reports: CT of the head shows no acute hemorrhage or midline shift. No skull fracture. Abdominal ultrasound shows no ascites. DISCHARGE INSTRUCTIONS: 1. The patient will be discharged to home. 2. Diet: As tolerated. 3. Activity: As tolerated. 4. Follow up with Dr. Cai with a CBC and renal panel in 3 days. DISCHARGE MEDICATIONS: 1. Calcium with vitamin D 1 tablet p.o. twice daily. 2. Vitamin D2, 50,000 units p.o. every 7 days. 3. Prozac 10 mg p.o. daily. 4. Lasix 40 mg p.o. daily. 5. Lactulose 45 mL p.o. every 8 hours. 6. Levothyroxine 75 mcg p.o. daily. 7. Lidocaine patch, apply 12 hours on, 12 hours off to affected area. 8. Magnesium oxide 400 mg p.o. twice daily. 9. Meclizine 12.5 mg p.o. twice daily. 10. Zaroxolyn 2.5 mg p.o. daily. 11. Protonix 40 mg p.o. daily. 12. Potassium 20 mEq p.o. daily. 13. Rifaximin 550 mg p.o. twice daily. 14. Risperdal 0.5 mg p.o. at bedtime. 15. Aldactone 25 mg p.o. daily. 16. Carafate 1 g p.o. t.i.d. 17. Tramadol 50 mg p.o. every 12 hours as needed for pain. 18. Nitrostat 0.4 mg sublingual q.5 minutes p.r.n. chest pain. 19. ProAir inhaler 2 puffs every 4 hours as needed for shortness of breath. 20. Tylenol 650 mg p.o. q.6 hours p.r.n. 21. Saline nasal spray 1 spray to nose twice daily p.r.n. congestion. 22. CPAP when asleep. 23. DuoNeb 1 inhalation every 4 hours. Thank you for allowing us to participate in the care of this patient as he has been hospitalized at [facility]. KENNETH PITTMAN APRN FOR ASUNCION KLINE MD PATIENT'S NAME: JM GAXIOLA [facility] AGE: 51 Y [address] ROOM: [place] [address] LOCATION: [facility] [place] ADMIT DATE: 11/26/2016 Discharge Summary DISCHARGE DATE: 11/29/2016 FAMILY PHYSICIAN: Lauri Cai MD ATTENDING PHYSICIAN: Faustino Barboza/kaila /[id number] CC: Lauri Cai MD d: 11/30/16 1259 t: 12/02/16 1739, DISCHARGE SUMMARY
--- NOTE | ~2016-11-26 | HP ---
PATIENT'S NAME: JM GAXIOLA [facility] AGE: 51 Y [address] ROOM: [place] [address] [place]: [facility] [place]MIT DATE: 11/26/2016 History & Physical DISCHARGE DATE: FAMILY PHYSICIAN: OLEG BOOTH MD ATTENDING PHYSICIAN: RONALDO GUZMAN DATE OF SERVICE: 11/26/2016 CHIEF COMPLAINT: Increased weakness, dizziness, and confusion. HISTORY OF PRESENT ILLNESS: This is a 51-year-old male with frequent visits to the emergency department and known history of hepatitis C and alcoholism with cirrhosis as well as chronic pain and morbid obesity, who was seen last night for increased abdominal pain per his report, treated with tramadol as well as Benadryl late last evening. The patient was brought to the emergency department and dropped off by his today without further history from her. He reports that he has felt "off" for the past day or two with the aforementioned increased weakness, foggy mentation, and diffuse abdominal pain. Of note, patient has been admitted previously for hepatic encephalopathy and presumptively treated for SBP, however, he has never demonstrated ascites on prior imaging studies, nor does he have a prior ascitic fluid confirmed case of SBP. Currently, patient does report that he has had some mild subjective fevers of late, but nothing confirmed, and in addition to the abdominal pain and dizziness, he feels subjectively weak. He notes no other new concerns including no chest pain or shortness of breath. No lower extremity swelling. No recent bowel or bladder changes. Notes that he has had bowel movements, but he is unable to quantify these for me during my evaluation. PAST MEDICAL HISTORY: 1. Hepatitis C, chronic. 2. Alcohol abuse, though denies currently. 3. Cirrhosis. 4. Obstructive sleep apnea. 5. Essential hypertension. 6. Chronic pain disorder. 7. Morbid obesity. 8. Hypothyroidism. 9. Chronic thrombocytopenia. 10. History of anemia of chronic disease. PAST SURGICAL HISTORY: History of right shoulder surgery as well as back surgery. PATIENT'S NAME: JM GAXIOLA [facility] AGE: 51 Y [address] ROOM: [place] [address] LOC[place]: [facility] [place] ADMIT DATE: 11/26/2016 History & Physical DISCHARGE DATE: FAMILY PHYSICIAN: OLEG BOOTH MD ATTENDING PHYSICIAN: RONALDO GUZMAN FAMILY HISTORY: Father with a CVA. Mother with leukemia. Otherwise, reviewed and noncontributory to the current presentation. SOCIAL HISTORY: The patient currently denies current smoking or alcohol use, though has an extensive prior alcohol use history. ALLERGIES: NO KNOWN DRUG ALLERGIES. CURRENT MEDICATIONS: Medications given tramadol and Benadryl last night. Remainder of the medications are currently being reconciled. REVIEW OF SYSTEMS: Complete review of systems difficult to obtain from patient as he is currently confused and is unavailable after having dropped the patient off in the emergency department. However, this is reviewed in HPI and otherwise negative. PHYSICAL EXAMINATION: VITAL SIGNS: The patient is afebrile, pulse 84, blood pressure 154/72, and saturating 95% on room air. GENERAL: The patient is somewhat lethargic, but responsive to questioning. Resting comfortably in no apparent distress on the emergency supervisor partial denture department. HEENT: Head; normocephalic and atraumatic. Eyes; pupils equal, round, and reactive to light. Extraocular muscles intact. Mild scleral icterus is appreciated without conjunctival injection. ENT, mucous membranes are dry. No nasal discharge appreciated. NECK: Supple. No lymphadenopathy. No thyromegaly appreciated. JVD difficult to assess due to neck size. CARDIOVASCULAR: Regular rate and rhythm. No murmurs appreciated. Pulses 2+ bilaterally including radial and dorsalis pedis. RESPIRATORY: Respirations are clear to auscultation bilaterally with normal effort. Saturating well on room air. ABDOMEN: Morbidly obese, but soft and nontender to palpation with normoactive bowel sounds. No appreciable fluid wave on exam though this is made difficult by body habitus. No suprapubic or CVA tenderness appreciated. EXTREMITIES: Without appreciable pitting edema. SKIN: With scattered excoriations over the right side of face as well as bilateral arms which appear to be from self-induced itching. NEUROLOGIC: The patient is alert, oriented to person and place, as well as the month, but not date. He is slow to respond to questions, but is voluntarily moving all extremities without difficulty without appreciable focal strength deficits on exam. He does not exhibit asterixis. PATIENT'S NAME: JM GAXILOA [facility] AGE: 51 Y [address] ROOM: [address] [place], [place] [address] LOCATION: [facility] [place] ADMIT DATE: 11/26/2016 History & Physical DISCHARGE DATE: FAMILY PHYSICIAN: OLEG BOOTH MD ATTENDING PHYSICIAN: RONALDO GUZMAN PSYCHIATRIC: The patient has a normal mood and affect. LABORATORY DATA AND IMAGING STUDIES: Labs and Imaging: CBC with white count 3.4, hemoglobin 9.0, and platelets 97,000. Complete metabolic panel with sodium 142, potassium 3.3, chloride 108, bicarbonate 26, BUN 11, creatinine 0.8, glucose 123, and calcium 7.8. LFTs with total protein of 6.6, albumin 2.8, AST 149, ALT 80, alkaline phosphatase 166, and total bilirubin 2.2. INR is 1.27. Procalcitonin is less than 0.05. Lactic acid is 1.5. Troponin is normal at less than 0.04. Urinalysis does not show evidence of infection. Ammonia level is 104, and CT head is without acute findings. ASSESSMENT: 1. Metabolic encephalopathy, presumed secondary to hepatic encephalopathy, though cannot rule out medication effect with recent prescription given for tramadol as well as Benadryl just last night in the emergency department. The patient was given lactulose x1 while in the emergency department. We will monitor stools and continue this with plan to titrate to 3 to 4 bowel movements daily. We will obtain ultrasound of the abdomen to rule out significant ascites and if present, we will plan for IR consultation to attempt to tap this fluid given the patient's subjective fevers and diffuse abdominal pain. At this point in time, we will hold off on antibiotics as there is no evidence of systemic illness and would like to isolate a pathogen should there be ascitic fluid present. 2. Essential hypertension, stable. We will continue home regimen. 3. Chronic pain disorder. We will cautiously titrate home pain medications to avoid worsening mental status. 4. Hypothyroidism. 5. Pancytopenia. 6. Anemia is chronic and stable at around 9. Thrombocytopenia, likely secondary to chronic liver disease and white count is stable and mildly low at 3.4. We will monitor. 7. Obstructive sleep apnea. CPAP at night. 8. Deep venous thrombosis prophylaxis. We will use heparin 5000 subcutaneous t.i.d. We will hold if platelets decreased to less than 50,000. 9. Code Status: The patient is a full code. I spent 35 minutes on the date of admission including direct [id number] interaction with the patient and the ER staff and review of records. RONALDO GUZMAN MD PATIENT'S NAME: JM GAXIOLA [facility] AGE: 51 Y [address] ROOM: [place] [address] LOCATION: [facility] [place] ADMIT DATE: 11/26/2016 History & Physical DISCHARGE DATE: FAMILY PHYSICIAN: OLEG BOOTH MD ATTENDING PHYSICIAN: RONALDO GUZMAN/kaila /[id number] D: [id number] T: [id number] HISTORY & PHYSICAL
--- NOTE | ~2016-11-26 | ER ---
PATIENT'S NAME: JM GAXIOLA [facility] AGE: 51 Y [address] ROOM: [place] [address] [place] [facility] [place]: 11/26/2016 ER/Outpatient Report DISCHARGE DATE: FAMILY PHYSICIAN: OLEG BOOTH MD ATTENDING PHYSICIAN: RONALDO BARBOZA Time of Arrival: 0921 hours. Time of Evaluation: 0931 hours. CHIEF COMPLAINT: "Not feeling good." HISTORY OF PRESENT ILLNESS: The patient is a 51-year-old male who presents to the emergency department today. He reports he just does not feel good. He has troubles explaining what he means by this. He reports he just feels plugged up. He is having some mild shortness of breath. He is having some nausea, no vomiting, no diarrhea or constipation, no urinary symptoms. He reports he has a little bit of back pain. His eyes are just watering. He continues to report he does not feel good. PAST MEDICAL HISTORY: Hepatitis C, obstructive sleep apnea, asthma, esophageal varices. PAST SURGICAL HISTORY: Upper GI, leg surgery, foot surgery. SOCIAL HISTORY: The patient denies any tobacco, alcohol, or illicit drug use. ALLERGIES: NO KNOWN DRUG ALLERGIES. MEDICATIONS: Please see list. PRIMARY CARE DOCTOR: Oleg Booth MD. REVIEW OF SYSTEMS: All systems are reviewed by myself and are negative with the exception of those discussed in HPI and past medical history. PHYSICAL EXAMINATION: VITAL SIGNS: Weight 187.7 kg. Blood pressure 179/80, pulse 76, respiratory PATIENT'S NAME: JM GAXIOLA [facility] AGE: 51 Y [address] ROOM: [place] [address] [place] [facility] [place] DATE: 11/26/2016 ER/Outpatient Report DISCHARGE DATE: FAMILY PHYSICIAN: OLEG BOOTH MD ATTENDING PHYSICIAN: RONALDO BARBOZA rate 17, temperature 97.4, and oxygen saturation 94% on room air. GENERAL: The patient is a 51-year-old male, appears stated age, obese. HEENT: Normocephalic, atraumatic. Pupils are equal, round, and reactive to light. Extraocular motions are intact. Nares are patent bilaterally. TMs are clear. Oropharynx is clear. NECK: Supple. There is no nuchal rigidity. CARDIOVASCULAR: Regular rate and rhythm. No murmurs, rubs, or gallops. LUNGS: Clear to auscultation bilaterally. No wheezes, rales, or rhonchi. ABDOMEN: Soft, nontender, and nondistended. No rebound, rigidity, or guarding. MUSCULOSKELETAL: The patient moves all 4 extremities. NEUROLOGICAL: GCS of 14. He is alert. He is oriented to person, not place, not time. He does have downward going toes. No clonus. Equal atomic physics teacher strength bilaterally. SKIN: Warm and dry. LABORATORY DATA AND X-RAYS: Labs and x-rays are obtained. CT scan of the brain is obtained, there is no acute process. CBC: White blood cell count 3.4; hemoglobin 9.0, stable; hematocrit 27.3; platelets are 97, stable. CMP remarkable for potassium 3.3; calcium 7.8; total bilirubin is 2.2, stable from 2.1; alkaline phosphatase 166, last checked at 159; AST is 149; ALT is 80. Lactate is normal. Procalcitonin is less than 0.05. Cardiac enzymes are normal. Ammonia is elevated at 104. Urinalysis unremarkable. PTT is normal, PT is 13.4, INR is 1.27. IMPRESSION: 1. Hepatic encephalopathy. 2. Elevated liver enzymes. 3. Chronic anemia. 4. Gait instability. 5. Initial visit. EMERGENCY DEPARTMENT COURSE: The patient brought back to the examination room. Seen and evaluated by myself. IV is established. Laboratory analysis and imaging are obtained as described above. Results of the workup are obtained, I have discussed the results with the patient. The patient is reevaluated, we have attempted to ambulate the patient. He is very familiar to this emergency department and is not acting his normal self at this time. The patient does have a normal CT of the brain and evidence of encephalopathy due to elevated ammonia with a history of liver disease. I have discussed the case with Dr. Barboza who is on- call for the Hospitalist Service, he does agree to accept the patient. He has seen and evaluated the patient down here in the emergency department. The patient is ordered for 20 g of lactulose, we are awaiting arrival from pharmacy and the patient does proceed upstairs to his inpatient room prior to this being given. DISPOSITION: The patient is admitted under the care of Dr. Barboza in stable condition. PATIENT'S NAME: JM GAXIOLA [facility] AGE: 51 Y [address] ROOM: [address] [place] [id number] [place] [facility] [place]: 11/26/2016 ER/Outpatient Report DISCHARGE DATE: FAMILY PHYSICIAN: OLEG BOOTH MD ATTENDING PHYSICIAN: RONALDO BARBOZA DO ITALO SIDDIQI/alexial /[id number] d: 11/26/16 2238 t: 11/27/16 0843, OUTPATIENT REPORT
[2016-11-26 10:46] LABS: BASOPHIL % 0.6 %; EOSINOPHIL # 0.2 K/uL (0.0-0.5); EOSINOPHIL % 5.8 %; HEMATOCRIT 27.3 % (37.0-53.0); IMMATURE GRANULOCYTE % 0.3 %; LYMPHOCYTE # 0.7 K/uL (0.8-4.0); LYMPHOCYTE % 21.1 %; MCH 31.1 pg (27.0-34.0); MCV 94.5 fl (83.0-98.0); MONOCYTE # 0.4 K/uL (0.0-1.0); MONOCYTE % 11.1 %; MPV 9.5 fl (9.4-12.4); NEUTROPHIL # (ANC) 2.1 K/uL (1.4-9.0); NEUTROPHIL % 61.1 %; NRBC % 0 /100WBC (0-0.00); PLATELET COUNT 97 K/uL (150-450); RBC 2.89 M/uL (4.00-6.00); RDW-CV 15.8 % (11.9-14.6); WBC 3.4 K/uL (4.0-11.0)
[2016-11-26 11:01] LABS: ALBUMIN 2.8 gm/dL (3.5-5.0); ALK PHOS 166 IU/L (33-138); ALT 80 IU/L (12-78); ANION GAP 11.3 (10.0-19.0); AST 149 IU/L (10-40); BLOOD UREA NITROGEN 11 mg/dL (6-24); CALCIUM 7.8 mg/dL (8.5-10.5); CHLORIDE 108 mMol/L (96-110); CO2 26 mMol/L (22-32); CREATININE 0.8 mg/dL (0.6-1.3); POTASSIUM 3.3 mMol/L (3.7-5.1); SODIUM 142 mMol/L (135-145); TOTAL BILIRUBIN 2.2 mg/dL (0.0-1.5); TOTAL PROTEIN 6.6 g/dL (6.0-8.4)
[2016-11-26 12:24] LABS: BILIRUBIN URINE NEGATIVE (NEGATIVE); BLOOD URINE 25 /UL (NEGATIVE); COLOR URINE YELLOW (YELLOW); GLUCOSE URINE NEGATIVE (NEGATIVE); KETONE URINE NEGATIVE (NEGATIVE); LEUKOCYTES URINE NEGATIVE /UL (NEGATIVE); NITRITE URINE NEGATIVE (NEGATIVE); PROTEIN URINE NEGATIVE (NEGATIVE); TURBIDITY URINE CLEAR (CLEAR); UROBILINOGEN URINE 4 mg/dL (NORMAL)
[2016-11-26 12:36] LABS: BACTERIA URINE NEGATIVE (NEGATIVE); EPITHELIAL URINE NEGATIVE #/HPF (NEGATIVE); RBC URINE RARE #/HPF (NEGATIVE); WBC URINE NEGATIVE #/HPF (NEGATIVE)
[2016-11-26 14:07] LABS: INR - (THERAPEUTIC) 1.27 (0.92-1.07); PROTIME 13.4 SECONDS (9.8-11.4)
[2016-11-26 14:16] LABS: CPK 250 IU/L (35-332)
--- NOTE | 2016-11-26 17:32 | NUR ---
Patient is a 51 year old male admitted for observation for hepatic encephalopathy. Patient has a history of CAD, HTN, asthma, sleep apnea, pneumonia, bronchitis, COPD, SOB with acitivty, arthitis, herniated neck disc, anxiety, depression, nocturia, alcohol/drug abuse, MRSA/bacturemia, heartburn, GERD, cirrhosis, hepatits C, bleeding ulcers. Patient came in for being very unbalanced and slow to respond. His ammonia level is high. He was in the ER last night for arm pain, impulsive at times. Pale in color. Very high fall risk. Confused. IV in the L)AC. Alarms on.
--- NOTE | 2016-11-26 18:08 | NUR ---
Significant Event: Patient is disoriented x3. Very slow to respond and repetitive with the same answer when asking a different question. Very fidgety. Impulsive at times. Confused. Unbalanced. 2PA with walker and gait belt. Had some incontience and urgency, Dr. Barboza notified and junior cath placed for 24 hours. IV in the L)AC, fluids infusing for 1 liter. No family present. Ultrasound completed. Regular diet. Has been belching some since arriving to the floor. VS per routine. Alarms on at all times. Lactulose ER dose given and iniatated TID. Heparin also started TID. Does yell out occasionally.
[2016-11-27 04:59] LABS: BASOPHIL % 0.4 %; EOSINOPHIL # 0.2 K/uL (0.0-0.5); EOSINOPHIL % 4.1 %; HEMATOCRIT 26.5 % (37.0-53.0); HEMOGLOBIN 8.5 g/dL (12.0-17.0); IMMATURE GRANULOCYTE % 0.4 %; LYMPHOCYTE % 20.9 %; MCH 30.5 pg (27.0-34.0); MCHC 32.1 gm/dL (32.0-36.5); MONOCYTE # 0.4 K/uL (0.0-1.0); MONOCYTE % 8.1 %; NEUTROPHIL % 66.1 %; NRBC % 0 /100WBC (0-0.00); PLATELET COUNT 84 K/uL (150-450); RBC 2.79 M/uL (4.00-6.00); RDW-CV 15.8 % (11.9-14.6); WBC 4.6 K/uL (4.0-11.0)
[2016-11-27 05:18] LABS: ALBUMIN 2.6 gm/dL (3.5-5.0); ALK PHOS 116 IU/L (33-138); ALT 72 IU/L (12-78); ANION GAP 9.4 (10.0-19.0); AST 123 IU/L (10-40); BLOOD UREA NITROGEN 10 mg/dL (6-24); CALCIUM 7.8 mg/dL (8.5-10.5); CHLORIDE 110 mMol/L (96-110); CO2 26 mMol/L (22-32); CREATININE 0.7 mg/dL (0.6-1.3); POTASSIUM 3.4 mMol/L (3.7-5.1); SODIUM 142 mMol/L (135-145)
[2016-11-27 05:19] LABS: TOTAL BILIRUBIN 3.1 mg/dL (0.0-1.5)
--- NOTE | 2016-11-27 08:35 | NUR ---
Significant Event: PT STARTED SHIFT VERY RESTLESS, CONFUSED AND UNCOOPERATIVE WITH CARES. VERY FORGETFUL. PT HAD DIFFICULTIES REMEMBERING TO KEEP LEFT ARM STRAIGHT DUE TO PIV AND IT CAUSING THE PUMP TO ALARM EVERY 5-10 MINUTES, NEW PIV TO RIGHT HAND PLACED WITH IVF INFUSING. BED ALARM WENT OFF OFTEN FOR FIRST FEW HOURS OF SHIFT. PT FORGOT WHERE HE WAS AND WOULD TRY TO "GO SOMEWHERE." MULTIPLE FAILED ATTEMPTS MADE TO REORIENT PATIENT. PT REFUSED 2200 MEDICATIONS DUE TO NAUSEA, N/O OBTAINED FOR ZOFRAN (ADMINISTERED AT 2304). VSS ON RA, BESIDES HTN. PT HAD 3 BM'S DURING SHIFT. BECERRIL CATHETER REMAINED IN PLACE AND PATENT, URINE AN ORANGE COLOR. PT BECAME MUCH MORE LUCID AROUND 0300. WAS ABLE TO HOLD CONVERSATIONS, AND COULD INTERMITTENTLY RECALL CORRECT DATE/PLACE. PT WOULD SING SONGS AND JOKE WITH STAFF. PT REPORTED HE STILL DOESN'T REMEMBER HOW HE GOT TO THE HOSPITAL. MORE COOPERATIVE WITH CARES BY END OF SHIFT. Follow up: OBTAINING HOME MEDICATION LIST. WG CONTACTED, NEVER FAXED OVER [employer].
[2016-11-27] MEDS ORDERED: LIDOCAINE1 EACH TOP (09:01)
[2016-11-27] MEDS ORDERED: MECLIZINE HCL25 MG PO (09:02)
[2016-11-27] MEDS ORDERED: CALCIUM 600 +1 EAC3 PO (09:03)
[2016-11-27] MEDS ORDERED: VITAMIN D250000 UNIT PO (09:04)
--- NOTE | 2016-11-27 19:58 | NUR ---
Significant Event: Patient is alert and oriented x3 today, very giggly and giddy. VSS and on RA. Did shower today. Did not have any BMS today. Perez removed and voiding adequatley, occasionally incontient. Restarted patients home meds and completed the home med list with [facility] pharmacy over the phone. They were unable to fax his list after multiple attempts in 12 hours. Is up with SBA and walker. I think he has a walker at home. Eating well. L)ac and right wrist IV, both are saline locked. Cooperative with cares. Alarms on for safety.
--- NOTE | 2016-11-28 12:45 | NUR ---
Introduced self and role of care management to patient. He lives in [place] with his and a daughter and her . He uses a walker at home. Does not use O2 at home but does have CPAP at home. He says his daughter helps him as needed during the day and his is home in the evenings and nights after work and helps then. He plans home and hopes to go home today or tomorrow. Says they are adjusting his medications and he feels much better than when he came in. Talked to him about HHC, but he is not interested. Will follow.
--- NOTE | 2016-11-28 16:33 | NUR ---
Significant Event: Patient is alert and oriented x3. VSS and on RA. L)AC and R)hand IV, SL. Uses the urinal, but sometimes misses. Tolerating a regular diet. Has had only 1 stool today, needs to have between 3-4. An extra dose of lactulose was given. Patient has been sleeping the majority of the afternoon. Stat ammonia level was drawn this morning and it was elevated. Up with SBA. Possibly home this evening or tomorrow. Cooperative with cares.
--- NOTE | 2016-11-29 05:19 | NUR ---
Pt. alert and oriented. RA - CPAP at [facility] with no oxygen. VSS. Had 2 BM this shift. Drinking/voiding well. L) AC and R) Hand IV - saline locked. Regular diet. IND. NO C/0 pain this shift. Slept well. Supposed to walk 3x a day but does not always do that. Pleasant with cares. Possible d/c today.
[2016-11-29 09:34] LABS: ALBUMIN 2.2 gm/dL (3.5-5.0); ALK PHOS 117 IU/L (33-138); ALT 60 IU/L (12-78); ANION GAP 9.9 (10.0-19.0); AST 106 IU/L (10-40); BLOOD UREA NITROGEN 14 mg/dL (6-24); CALCIUM 8.4 mg/dL (8.5-10.5); CHLORIDE 106 mMol/L (96-110); CO2 29 mMol/L (22-32); CREATININE 0.7 mg/dL (0.6-1.3); POTASSIUM 3.9 mMol/L (3.7-5.1); SODIUM 141 mMol/L (135-145); TOTAL PROTEIN 5.7 g/dL (6.0-8.4)
[2016-11-29 09:40] LABS: TOTAL BILIRUBIN 1.5 mg/dL (0.0-1.5)
--- NOTE | 2016-11-29 12:10 | NUR ---
Significant Event: Patient up ad yudelka in room. Denies pain/nausea. Doctor in and said patient could be dismissed. Dismissal orders processed by charge nurse and reviewed with patient by primary nurse. IV's removed per orders. here to drive patient home. Patient taken in a wheelchair down to the front doors for dismissal by ON CALL. Patient dismissed.
== END 2016-11-29 12:10 | disposition disaster alternative care site (69) ==
LOC: GMED 09:21 → GMSU 14:49
PROVIDERS: Emergency Medicine; Nurse Practitioner Family; ADMIT Internal Medicine
DX: K72.00 Acute and subacute hepatic failure without coma (principal); D61.818 Other pancytopenia; G89.29 Other chronic pain; G47.33 Obstructive sleep apnea (adult) (pediatric); B19.20 Unspecified viral hepatitis C without hepatic coma; K74.60 Unspecified cirrhosis of liver; I10 Essential (primary) hypertension; E66.01 Morbid (severe) obesity due to excess calories; E03.9 Hypothyroidism, unspecified; Z98.890 Other specified postprocedural states; D64.9 Anemia, unspecified; Z79.891 Long term (current) use of opiate analgesic; Z79.899 Other long term (current) drug therapy; Z79.52 Long term (current) use of systemic steroids
CPT/HCPCS: G0378; J1644; J2405; J3480; J7030

== ENCOUNTER 2016-12-18 14:26 | Emergency (ER) | payer MEDICAID ==
--- NOTE | ~2016-12-18 | ER ---
[facility]GE[facility] 51 Y [address] ROOM: [place] [address] LOCATION: [facility] ADMIT DATE: 12/18/2016 ER/Outpatient Report DISCHARGE DATE: 12/18/2016 FAMILY PHYSICIAN: PHYSICIAN, NO ATTENDING PHYSICIAN: Tyler Ron Time of Arrival: 1428 hours. Time of Exam: 1435 hours. CHIEF COMPLAINT: Abdominal pain, dizziness. HISTORY OF PRESENT ILLNESS: The patient states he has not felt well for the last 2.5 hours. He was seen here yesterday for this similar-type problems. He denies having any fever or chills. He has not had any chest pain or shortness of breath. Has generalized abdominal pain. States he has been nauseated and vomited. States he had loose diarrhea stool today. States the pain is similar to what he has had in the past. ALLERGIES: NO KNOWN ALLERGIES. CURRENT MEDICATIONS: On his chart and reviewed by me. PAST MEDICAL HISTORY: Chronic anemia, chronic pain, hypothyroidism, hypertension, thrombocytopenia, alcohol abuse, cirrhosis of the liver, hepatitis C, and obstructive sleep apnea. PAST SURGICAL HISTORY: Right shoulder surgery, low back surgery. REVIEW OF SYSTEMS: All negative other than those mentioned in the HPI. PHYSICAL EXAMINATION: VITAL SIGNS: He weighed 175.8 kg. Blood pressure is 150/92, pulse of 96, respirations 18, temperature of 97.9 tympanic, and O2 saturation is 99% on room air. GENERAL: He is awake, alert, and oriented x4. SKIN: [place], warm, and dry. RESPIRATIONS: Even and nonlabored. Lung sounds are clear throughout. HEART: Regular rate and rhythm. PATIENT'S NAME: JM GAXIOLA [facility] AGE: 51 Y [address] ROOM: [place] [address] LOCATION: [facility] ADMIT DATE: 12/18/2016 ER/Outpatient Report DISCHARGE DATE: 12/18/2016 FAMILY PHYSICIAN: PHYSICIAN, NO ATTENDING PHYSICIAN: Tyler Ron ABDOMEN: Soft and nondistended. Bowel sounds are present. He has generalized pain throughout. EMERGENCY ROOM COURSE: Lab work was drawn. Hemoglobin is 8.6, was 8.5, yesterday. A clean-catch UA was obtained, negative for leukocytes, negative for nitrites, few bacteria. Lactate was 1.8. Ammonia is 54, which is less than the last time he was admitted to the hospital. He was given Zofran 4 mg ODT and Reglan 10 mg p.o. Report was given to Nigel Lindsey PA-C, at the change of shift. ERINN WEBSTER APRN FOR MD AUREA MASCORRO/kaila /[id number] d: t: 12/18/162049, OUTPATIENT REPORT
--- NOTE | ~2016-12-18 | ER ---
PATIENT'S NAME: JM GAXIOLA [facility] AGE: 51 Y [address] ROOM: [place] [address] LOCATION: ED ADMIT DATE: 12/18/2016 ER/Outpatient Report DISCHARGE DATE: 12/18/2016 FAMILY PHYSICIAN: PHYSICIAN, NO ATTENDING PHYSICIAN: Tyler Larson ARRIVAL TIME: 1428 ENCOUNTER TIME: 1600 This is an addendum to full ER note by Mackenzie Glass. I arrived and took on this patient that was mostly completed by Ms. Glass. The patient is a 51-year-old male who re-presents to the emergency department with complaints of dizziness. Was seen yesterday for similar complaints, and sent home in stable status by me. He has had dizzy issues upon moving to a standing position and with exertion over the last couple of hours. After discussion with Jaun Quan, she felt the patient was in relatively stable status and could return home after thorough workup. PERTINENT REVIEW OF SYSTEMS: All systems reviewed by me and negative unless otherwise stated in the HPI. PAST MEDICAL HISTORY: As noted on the nursing document. PAST SURGICAL HISTORY: As noted on the nursing document. MEDICATIONS: As listed on the nursing document. ALLERGIES: NO KNOWN DRUG ALLERGIES. SOCIAL HISTORY: The patient is a former alcoholic. Denies smoking or drug use. OBJECTIVE: INITIAL VITAL SIGNS: Weight 175.8 kg, blood pressure 150/92, pulse 96 and regular, respirations 18, temperature of 97.9 degrees Fahrenheit taken tympanically. SpO2 of 99% on room air. GENERAL: The patient is obese and in mild distress. He is calm. Alert and PATIENT'S NAME: JM GAXIOLA [facility] AGE: 51 Y [address] ROOM: [place], [place] [address] LOCATION: ED ADMIT DATE: 12/18/2016 ER/Outpatient Report DISCHARGE DATE: 12/18/2016 FAMILY PHYSICIAN: PHYSICIAN, NO ATTENDING PHYSICIAN: Tyler Larson oriented to person, place, and time. LUNGS: Clear to auscultation bilaterally. No wheezes, crackles, rhonchi, or stridor. Normal respiratory effort. HEART: Regular rate and rhythm. No S3, S4, or extra sounds. SKIN: Dusky, but warm and dry. NEUROLOGIC: Cranial nerves 2 through 12 grossly intact. Strength 5/5 bilaterally in the upper and lower extremities. Gait is steady without assistance. Deep tendon reflexes +2/4 bilaterally at the radial and dorsalis pedis locations. LABORATORY DATA: Urinalysis; urine color is straw, turbidity clear, spec gravity 1.010, pH 8.0, leukocyte negative, nitrite negative, protein negative, glucose negative, ketone negative, urobilinogen normal, bilirubin negative, blood 50 units/microliter, white blood cell negative on micro, red blood cell 5-10 cells per high-power field, epithelium 0.2 cells per high-power field, few bacteria and +1 mucus, crystals triple phosphate. White blood cell 3.7, red blood cell 2.84, hemoglobin 8.6, hematocrit 26.2, MCV 92.3, MCH 30.3, MCHC 32.8, RDW 16.8, platelet 82, MPV 9.9, and auto diff grossly negative except for marginally depressed lymphocyte number at 0.6. PTT 35, protime 13.3, and INR at 1.26. CMS; sodium at 141, potassium 3.5, chloride 109, CO2 of 24, anion gap 11.5, glucose 113, calcium 8.6, BUN 11, creatinine 0.7. Total protein 6.8, albumin 2.8, globulin 4.0, A/G ratio 0.7, total bilirubin 1.9, alkaline phosphatase 136, AST 106, ALT 63, estimated GFR over 90. Troponin I less than 0.040. Ammonia high at 54. Lactate elevated at 1.8. Prolactin normal at 0.07. DIAGNOSIS: Gastrointestinal bleed and dizziness. Relatively stable and hemoglobin has actually improved from yesterday to 8.6. Yesterday, it was 8.5. Continues to feel tired after a poor sleep due to a crying baby. Would like the patient to follow up with Dr. Cai promptly tomorrow. They need to discuss moving up his GI scope and adjusting his medications to compensate for the dizziness he is experiencing. The patient agreeable to this plan. Instructed him to return to clinic should any concerns arise. Take all medications as prescribed. Discussed med risks, side effects, and benefits in detail with the patient. Give plenty of rest and liquids. Take Tylenol or ibuprofen as directed unless allergic, asthmatic, or aspirin sensitive for fever or discomfort. Return to the emergency department or primary care provider if symptoms persist or worsen. Discharged home in stable status. His is driving him home. [place] PA-C FOR TYLER LARSON MD PATIENT'S NAME: JM GAXIOLA [facility] AGE: 51 Y [address] ROOM: [place] [address] LOCATION: [facility] ADMIT DATE: 12/18/2016 ER/Outpatient Report DISCHARGE DATE: 12/18/2016 FAMILY PHYSICIAN: , NO ATTENDING PHYSICIAN: Tyler Larson SMR/modl /[id number] d: t: 12/19/16 1050, OUTPATIENT REPORT
[~2016-12-18 14:26] MED LIST changes: +CALCIUM 600 +1 EAC3 PO; +LEVOTHROID (S100 MCG PO; -LEVOTHROID(SYN75 MCG PO; +LIDOCAINE1 EACH TOP; -OSCAL500 MG PO; +VITAMIN D250000 UNIT PO
[2016-12-18 15:19] LABS: BASOPHIL % 0.3 %; EOSINOPHIL # 0.1 K/uL (0.0-0.5); HEMATOCRIT 26.2 % (37.0-53.0); HEMOGLOBIN 8.6 g/dL (12.0-17.0); LYMPHOCYTE # 0.6 K/uL (0.8-4.0); LYMPHOCYTE % 15.4 %; MCH 30.3 pg (27.0-34.0); MCHC 32.8 gm/dL (32.0-36.5); MCV 92.3 fl (83.0-98.0); MONOCYTE # 0.3 K/uL (0.0-1.0); MONOCYTE % 8.6 %; MPV 9.9 fl (9.4-12.4); NEUTROPHIL # (ANC) 2.7 K/uL (1.4-9.0); NEUTROPHIL % 72.7 %; NRBC % 0 /100WBC (0-0.00); PLATELET COUNT 82 K/uL (150-450); RBC 2.84 M/uL (4.00-6.00); RDW-CV 16.8 % (11.9-14.6); WBC 3.7 K/uL (4.0-11.0)
[2016-12-18 15:27] LABS: INR - (THERAPEUTIC) 1.26 (0.92-1.07); PROTIME 13.3 SECONDS (9.8-11.4); PTT 35 SECONDS (25-32)
[2016-12-18 15:35] LABS: BILIRUBIN URINE NEGATIVE (NEGATIVE); BLOOD URINE 50 /UL (NEGATIVE); COLOR URINE STRAW (YELLOW); GLUCOSE URINE NEGATIVE (NEGATIVE); KETONE URINE NEGATIVE (NEGATIVE); LEUKOCYTES URINE NEGATIVE /UL (NEGATIVE); NITRITE URINE NEGATIVE (NEGATIVE); PROTEIN URINE NEGATIVE (NEGATIVE); TURBIDITY URINE CLEAR (CLEAR); UROBILINOGEN URINE NORMAL (NORMAL)
[2016-12-18 15:44] LABS: BACTERIA URINE FEW (NEGATIVE); CRYSTALS URINE TRIPLE PHOSPHATE (NEGATIVE); EPITHELIAL URINE 0-2 #/HPF (NEGATIVE); MUCUS URINE 1+ (NEGATIVE); WBC URINE NEGATIVE #/HPF (NEGATIVE)
[2016-12-18 15:45] LABS: ALBUMIN 2.8 gm/dL (3.5-5.0); ALK PHOS 136 IU/L (33-138); ALT 63 IU/L (12-78); ANION GAP 11.5 (10.0-19.0); AST 106 IU/L (10-40); BLOOD UREA NITROGEN 11 mg/dL (6-24); CALCIUM 8.6 mg/dL (8.5-10.5); CHLORIDE 109 mMol/L (96-110); CO2 24 mMol/L (22-32); CREATININE 0.7 mg/dL (0.6-1.3); POTASSIUM 3.5 mMol/L (3.7-5.1); SODIUM 141 mMol/L (135-145); TOTAL BILIRUBIN 1.9 mg/dL (0.0-1.5); TOTAL PROTEIN 6.8 g/dL (6.0-8.4)
[2016-12-19] MEDS ORDERED: DICYCLOMINE HCL20 MG PO (04:49)
[2016-12-21] MEDS ORDERED: OSCAL500 MG PO (17:30)
[2016-12-21] MEDS ORDERED: LEVAQUIN 750 M750 MG PO (17:32)
[2016-12-21] MEDS ORDERED: HUMIBID LA (MU600 MG PO (17:33)
== END 2016-12-18 16:50 | disposition disaster alternative care site (69) ==
LOC: GMED 14:26
PROVIDERS: Nurse Practitioner Family
DX: K92.2 Gastrointestinal hemorrhage, unspecified (principal); R42 Dizziness and giddiness; D50.0 Iron deficiency anemia secondary to blood loss (chronic); E03.9 Hypothyroidism, unspecified; I10 Essential (primary) hypertension; D69.6 Thrombocytopenia, unspecified; G47.33 Obstructive sleep apnea (adult) (pediatric); Z98.890 Other specified postprocedural states; Z79.899 Other long term (current) drug therapy